=== PATIENT | male | born 1940 | race Caucasian/White ===

== ENCOUNTER → 2018-03-25 09:57 | Outpatient (CLI) | payer MEDICARE, SELFPAY ==
[2018-03-25 10:03] LABS: Microscopic, Urine URINE MICROSCOPIC (MICROSCOPIC)
[2018-03-25 13:52] LABS: Appearance,Urine CLEAR (Clear); Bilirubin,Urine Negative (Negative); Blood, Urine Negative (Negative); Color,Urine YELLOW (Yellow); Glucose,Urine (UA) Negative (Negative); Ketones,Urine Negative (Negative); Leukocyte Esterase,Urine Negative (Negative); Nitrate,Urine Negative (Negative); PH,Urine 6.5 (5.0-8.5); Protein,Urine Negative (Negative); Urobilinogen,Urine 0.2 EU/dl (0.2)
[2018-03-25 14:01] LABS: Creatinine,Urine Random 105 mg/dL (20-320); Total Protein,Urine Random 8.7 mg/dL (0.0-11.9)
[2018-03-25 14:12] LABS: Albumin Level 3.7 gm/dL (3.4-5.0); Anion Gap 15.1 mEq/L (5-15); Blood Urea Nitrogen 21 mg/dL (7-18); Calcium 8.9 mg/dL (8.5-10.1); Carbon Dioxide 24 mmol/L (21.0-32.0); Chloride 104 mmol/L (98-107); Creatinine,Serum 2.14 mg/dL (0.70-1.30); Estimated Glomerular Filt Rate 30 ml/min (>60); GFR (African American) 37 ML/MIN (>60); Glucose 116 mg/dL (74-106); Phosphorous 3.2 mg/dL (2.4-4.9); Potassium 5.1 mmoL/L (3.5-5.1); Sodium 138 mmol/L (136-145); Uric Acid 7.3 mg/dL (2.6-7.2)
[2018-03-25 14:27] LABS: Bacteria,Urine Trace /lpf; Squamous Epithelial Cell,Urine Occasional #/hpf (0-5); WBC,Urine Occasional #/hpf (0-3)
[2018-03-25 14:48] LABS: Basophils % 0.7 % (0.1-2.0); Eosinophils # 0.2 K/mm3 (0.0-0.4); Eosinophils % 2.9 % (0.1-12.0); Hematocrit 45.6 % (42.0-52.0); Hemoglobin 14.6 g/dL (14.1-18.0); Lymphocytes # 1.7 K/mm3 (0.7-4.5); Mean Corpuscular Hemoglobin 31.6 pg (27.0-31.2); Mean Corpuscular Volume 98.9 fl (80-94); Mean Platelet Volume 9.5 fl (7.4-10.4); Monocytes # 0.4 K/mm3 (0.1-1.0); Neutrophils # 3.7 K/mm3 (1.8-7.8); Neutrophils % 61.4 % (37.0-80.0); Platelet Count 229 K/mm3 (142-424); Red Blood Count 4.61 M/mm3 (4.60-6.20); Red Cell Distribution Width 13.8 % (11.5-17.5); White Blood Count 6.1 K/mm3 (4.8-10.8)
[2018-03-28 09:35] LABS: Calcium, Ionized 5.2 mg/dL (4.5-5.6); Parathyroid Hormone Intact 52 pg/mL (15-65); Vitamin D 25 Hydroxy 34.3 ng/mL (30.0-100.0)
== END ==
PROVIDERS: PCP Nurse Practitioner Family; Visit Provider Internal Medicine Nephrology
DX: N18.3 Chronic kidney disease, stage 3 (moderate) (principal)
CPT/HCPCS: 36415; 80069; 81001; 82330; 82570; 82652; 83970; 84155; 84550; 85025

== ENCOUNTER → 2018-03-31 14:26 | Outpatient (POV) | payer MEDICARE, SELFPAY | PROVIDERS: Visit Provider Internal Medicine Nephrology | DX: Z00.00 Encounter for general adult medical examination without abnormal findings (principal) ==

== ENCOUNTER 2018-06-27 12:26 | Inpatient (IN) ==
--- NOTE | 2018-06-27 12:33 | Emergency Department Note ---
ED Disposition Clinical Impression: Pneumonia, Acute renal failure, Dehydration Disposition: Admitted as Observation Condition on Discharge: Good Time of Disposition: 14:40 - Critical Care Critical Care Time: No Attestation: On , the high probability of a clinically significant, sudden or life threateni ng deterioration of the following system(s) required my full and direct attention, intervention and personal management. The time I documented below is in addition to time spent performing reported procedures but includes the following listed in this critical care notation. Medical Decision Making - Medical Records Medical records reviewed: Yes: I reviewed the patient's medical records. - Alex Inquiry Pt receiving controlled substance: No Alex was queried for this patient: No Vital Signs: 06/27/18 12:33 06/27/18 16:42 06/27/18 17:00 Temperature 98.7 F 98.7 F Temperature Source Oral Oral Pulse Rate Pulse Rate [Right Brachial] 79 82 Respiratory Rate 17 16 Blood Pressure Blood Pressure [Left Arm] 110/56 L Blood Pressure [Right Arm] 106/56 L Blood Pressure Mean [Left Arm] 74 Blood Pressure Mean [Right Arm] 72 Blood Pressure Source Blood Pressure Source [Left Arm] Automatic Cuff Blood Pressure Source [Right Arm] Automatic Cuff Blood Pressure Position Blood Pressure Position [Left Arm] Sitting Blood Pressure Position [Right Arm] Sitting 02 Sat by Pulse Oximetry 98 91 L Oxygen Delivery Method Room Air Room Air Nasal Cannula Oxygen Flow Rate (LPM) 2 06/27/18 17:03 06/27/18 17:04 Temperature 98.6 F Temperature Source Oral Pulse Rate 88 Pulse Rate [Right Brachial] Respiratory Rate 20 Blood Pressure 121/66 Blood Pressure [Left Arm] Blood Pressure [Right Arm] Blood Pressure Mean [Left Arm] Blood Pressure Mean [Right Arm] Blood Pressure Source Automatic Cuff Blood Pressure Source [Left Arm] Blood Pressure Source [Right Arm] Blood Pressure Position Supine Blood Pressure Position [Left Arm] Blood Pressure Position [Right Arm] 02 Sat by Pulse Oximetry Oxygen Delivery Method Nasal Cannula Room Air Oxygen Flow Rate (LPM) - Lab Data Lab Results 06/27/18 12:47: WBC 9.6, RBC 4.70, Hgb 14.8, Hct 45.1, MCV 96.0 H, MCH 31.5 H, MCHC 32.8, RDW 13.8, Plt Count 234, MPV 8.9, Neut % (Auto) 83.6 H, Lymph % (Auto) 11.1, Grainger % (Auto) 5.1, Eos % (Auto) 0.1, Baso % (Auto) 0.2, Neut # (Auto) 8.0 H, Lymph # (Auto) 1.1, Grainger # (Auto) 0.5, Eos # (Auto) 0.0, Baso # (Auto) 0.0 06/27/18 12:47: Sodium 135 L, Potassium 4.3, Chloride 100, Carbon Dioxide 24, Anion Gap 15.3 H, BUN 61 H, Creatinine 3.77 H, Estimated Creat Clear 20, Est imated GFR 16 L*, Est GFR ( Amer) 19 L*, Glucose 125 H, Calcium 8.5, Total Bilirubin 0.8, AST 28, ALT 38, Alkaline Phosphatase 66, Total Protein 7.2, Albumin 3.3 L, Globulin 3.9 H, Albumin/Globulin Ratio 0.8 L 06/27/18 14:15: Lactate 0.6 Result diagrams: 06/27/18 12:47 06/27/18 12:47 Orders (Tests/Meds): ED MEDICATIONS Generic Name Dose Route Start Last Admin Trade Name Freq PRN Reason Stop Dose Admin Acetaminophen 650 mg 06/27/18 16:32 Acetaminophen 325mg Tab PO 07/27/18 16:31 Q4HP PRN Fever > 100.4 Albuterol/Ipratropium 3 ml 06/27/18 20:00 Duoneb 3ml Neb IH 07/27/18 19:59 TIDRT SY Doxazosin Mesylate 4 mg 06/27/18 16:32 Cardura 4mg Tablet PO 07/27/18 16:31 QHS SY Azithromycin 500 mg/ Sodium 250 mls @ 250 mls/hr 06/28/18 14:30 Chloride IV 07/11/18 14:29 Q24H SY Protocol Ceftriaxone Sodium 1 gm/ 50 mls @ 100 mls/hr 06/28/18 14:30 Sodium Chloride IV 07/11/18 14:29 Q24H SY Protocol Sodium Chloride 1,000 mls @ 250 mls/hr 06/27/18 16:32 06/27/18 17:07 Sod Chlor 0.9% 1000ml Bag IV 07/27/18 16:31 250 mls/hr .Q4H SY Administration Non-Formulary Medication 1 tab 06/28/18 09:00 Multivit With Iron-Minerals [[facility] Select] PO 07/28/18 08:59 DAILY SY Ondansetron HCl 4 mg 06/27/18 16:32 06/27/18 17:08 Zofran 4mg/2ml Vial IV 06/27/18 16:33 Not Given ONCE ONE Sodium Chloride 3 ml 06/27/18 17:31 Sodium Chloride 3% 15ml Neb IH 07/27/18 17:30 ONCE PRN INDUCE SPUTUM COLLECTION Discontinued Medications Generic Name Dose Route Start Last Admin Trade Name Freq PRN Reason Stop Dose Admin Amlodipine Besylate 10 mg 06/28/18 09:00 Norvasc 10mg Tablet PO 07/28/18 08:59 DAILY SY Sodium Chloride 1,000 mls @ 999 mls/hr 06/27/18 12:45 06/27/18 12:43 Sod Chlor 0.9% 1000ml Bag IV 06/27/18 13:45 999 mls/hr .Q1H1M SY Administration Ceftriaxone Sodium 1 gm/ 50 mls @ 100 mls/hr 06/27/18 14:30 06/27/18 14:34 Sodium Chloride IV 07/11/18 14:29 100 mls/hr Q24H SY Administration Protocol Azithromycin 500 mg/ Sodium 250 mls @ 250 mls/hr 06/27/18 14:30 06/27/18 14:54 Chloride IV 07/11/18 14:29 250 mls/hr Q24H SY Administration Protocol Sodium Chloride 1,000 mls @ 999 mls/hr 06/27/18 15:00 06/27/18 14:56 Sod Chlor 0.9% 1000ml Bag IV 06/27/18 16:00 999 mls/hr .Q1H1M SY Administration Lisinopril 10 mg 06/28/18 09:00 Zestril 10mg Tablet PO 07/28/18 08:59 DAILY SY ORDERS Category Date Time Status Basic Metabolic Panel AMLAB Lab 06/28/18 06:00 Ordered Complete Blood Count Auto Diff AMLAB Lab 06/28/18 06:00 Ordered General Adult HPI - General Chief complaint: Weakness Stated complaint: dehydrated soa Time Seen by Provider: 06/27/18 12:47 Mode of Arrival: Ambulatory Limitations: No Limitations - History of Present Illness HPI narrative: DIARRHEAL ILLNESS X 3 DAYS, 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 SENT HERE BY MAYI MCCRACKEN SECONDARY TO HYPOTENSION IN OFFICE - Related Data Home Medications Medication Instructions Recorded Confirmed amlodipine 10 mg tablet 10 mg PO DAILY tab 10/21/17 06/27/18 doxazosin 4 mg tablet 4 mg PO QHS 10/21/17 06/27/18 lisinopril 10 mg tablet 10 mg PO DAILY tab 10/21/17 06/27/18 multivitamin with iron-mineral 1 tab PO DAILY tab 10/21/17 06/27/18 tablet Allergies Allergy/AdvReac Type Severity Reaction Status Date / Time No Known Allergies Allergy Unknown Uncoded 04/13/17 15:26 [facility] History - Hepatitis A Screen Attestation statement:: This patient has been screened for Hepatitis A risk factors. I have reviewed the patient's past medical history: Yes Medical History: Reports:: Cancer, Hypertension Other Medical History: Reports: Radiation Therapy Comment: prostate biopsy Other Surgeries: Yes: Appendectomy, Skin Cancer Excision (right hand) - Social History Smoking Status: Current some day smoker Alcohol Intake: former Family Hx:: No significant family history ROS Obtained: Yes All systems reviewed & no additional complaints - Constitutional Constitutional: Reports chills, Reports lethargy - Eyes Eyes: Reports system reviewed and no additional complaints, except as docu, Denies blurry vision - ENT Ears, Nose, Mouth, and Throat: Reports system reviewed and no additional complai nts, except as docu, Reports sinus pressure, Denies throat swelling - Cardiovascular Cardiovascular: Reports system reviewed and no additional complaints, except as docu, Denies chest pain, Denies chest pain at rest, Denies diaphoresis, Denies dyspnea - Respiratory Respiratory: Yes system reviewed and no additional complaints, except as docu, Yes chest congestion, Yes cough, Yes non-productive cough, No dyspnea - Gastrointestinal Gastrointestingal: Reports: system reviewed and no additional complaints, except as docu, diarrhea. Denies: abdominal pain, nausea, vomiting - Musculoskeletal Musculoskeletal: Reports muscle weakness - Integumentary/Breasts Skin/Breast: Denies skin pain - Neurologic Neurologic: Reports system reviewed and no additional complaints, except as docu, Reports weakness - Hematologic/Lymphatic Henatologic/Lymphatic: Denies easy bleeding, Denies easy bruising - Allergic/Immunologic Allergic/Immunologic: Denies throat swelling, Denies tongue swelling Physical Exam - General General appearance: alert, in no apparent distress - Head Head exam: atraumatic - Eye Eye exam: Present: normal appearance, PERRL, EOMI - ENT ENT exam: Present: normal exam, normal oropharynx, mucous membranes moist, TM's normal bilaterally, normal external ear exam - Neck Neck exam: Present: normal inspection, full ROM, trachea midline. Absent: meningismus, lymphadenopathy - Chest Chest inspection: Present: normal inspection, symmetric chest wall rise. Absent: tenderness - Respiratory Respiratory exam: Present: normal lung sounds bilaterally. Absent: respiratory distress - Cardiovascular Cardiovascular exam: Present: regular rate. Absent: bradycardia, tachycardia - Abdominal Exam Abdominal exam: Present: soft. Absent: distention, tenderness, guarding, mass - Extremities Exam Extremities exam: Present: normal inspection, full ROM, normal capillary refill. Absent: calf tenderness - Neurological Exam Neurological exam: Present: alert, oriented X3 - Psychiatric Psychiatric exam: Present: normal affect, normal mood - Skin Skin exam: Present: warm, dry, intact, normal color - Lymphatic Lymphatic Findings: no adenopathy
[2018-06-27 13:05] LABS: Basophils % 0.2 % (0.1-2.0); Eosinophils % 0.1 % (0.1-12.0); Hematocrit 45.1 % (42.0-52.0); Hemoglobin 14.8 g/dL (14.1-18.0); Lymphocytes # 1.1 K/mm3 (0.7-4.5); Lymphocytes % 11.1 % (10-50); Mean Corpuscular HGB Conc 32.8 g/dL (31.8-35.4); Mean Corpuscular Hemoglobin 31.5 pg (27.0-31.2); Mean Platelet Volume 8.9 fl (7.4-10.4); Monocytes # 0.5 K/mm3 (0.1-1.0); Monocytes % 5.1 % (1.7-9.3); Neutrophils % 83.6 % (37.0-80.0); Platelet Count 234 K/mm3 (142-424); Red Cell Distribution Width 13.8 % (11.5-17.5); White Blood Count 9.6 K/mm3 (4.8-10.8)
[2018-06-27 13:23] LABS: Albumin Level 3.3 gm/dL (3.4-5.0); Albumin/Globulin Ratio 0.8 (1.1-1.8); Anion Gap 15.3 mEq/L (5-15); Bilirubin,Total 0.8 mg/dL (0.2-1.0); Calcium 8.5 mg/dL (8.5-10.1); Globulin 3.9 gm/dl (1.3-3.2); Potassium 4.3 mmoL/L (3.5-5.1); Total Protein,Serum 7.2 gm/dL (6.4-8.2)
--- NOTE | 2018-06-27 15:50 | History & Physical Report ---
Addendum entered and electronically signed by Mariela Steele APRN 06/28/18 05:03: Pt received Flu vaccine for this year and has had pneumonia vaccine Original Note: *Admission Date: 06/27/18 <Mariela Steele 06/27/18 16:45> *Chief complaint: weakness, cough, diarrhea <Mariela Steele 06/27/18 16:45> *History of present illness: Mr. Robbins is a 77-year-old male patient of Leeann Mckeon APRN with a history of prostate cancer and chronic renal disease who presented to Ms. Mckeon's office this a.m. after being sick for 3 days with a cough and diarrhea. In the office visit blood pressure dropped to 70s systolically and she sent him to the emergency room for further evaluation and treatment. Flu test in the office was negative. Patient states he started with the diarrhea on 06/24/2018 as well as the nonproductive cough. This continued for the next 2 days. He was nauseated but never did vomit. Urinary output was decreased. Last diarrhea stool was yesterday. He had hot and cold spells and subjectively felt like he had a fever. He denies sore throat and ear pain. In the emergency room with evaluation he was found to have a left lower lobe pneumonia. He was given a fluid bolus and started on Rocephin and Zithromax. He was admitted for further treatment. At the time of this exam patient is comfortable and feeling a little better. He states he is not quite as dizzy. He continues with a cough. He has chest pain with the cough. <Mariela Steele 06/27/18 16:45> [facility] History Medical History: Reports:: Cancer, Hypertension, Renal Insufficiency (Renal cyst) Denies:: Coronary Artery Disease, Cerebrovascular Accident <Mariela Steele 06/27/18 16:45> Other Medical History: Reports: Radiation Therapy <Mariela Steele 06/27/18 16:45> Other Surgeries: Yes: Appendectomy, Skin Cancer Excision (right hand) <Mariela Steele 06/27/18 16:45> - *Social History Educational Level: Completed High School <Mariela Steele 06/27/18 16:45> Smoking Status: Current some day smoker <Mariela Steele 06/27/18 16:45> Alcohol Intake: former <Mariela Steele 06/27/18 16:45> *Occupational Status:: unemployed, retired <SteeleMariela 06/27/18 16:45> Household Members: spouse <Mariela Steele 06/27/18 16:45> *Travel in the last 8 weeks: None <Steele,Mariela 06/27/18 16:45> - Psychiatric History Expresses thoughts of harming self/others: None <CedricMariela 06/27/18 16:45> Suicide Plan Description: No Plan <Steele,Mariela 06/27/18 16:45> Family Hx:: No significant family history, no Cancer, no Heart Attack <Steele,Mariela 06/27/18 16:45> Review of Systems - Constitutional Reports chills, Reports fatigue, Reports lack of energy <Steele,Mariela 06/27/18 16:45> Comments: Has been in the bed for 2-3 days <Mariela Steele 06/27/18 16:45> - ENT Reports dizziness, Denies ear pain, Denies sore throat <CedricMariela 06/27/18 16:45> - *Cardiovascular Reports shortness of breath, Denies chest pain, Denies irregular heart rhythm <Mariela Steele 06/27/18 16:45> - *Respiratory Reports chest congestion, Reports cough (Nonproductive), Reports shortness of breath, Denies coughing up blood <CedricMariela 06/27/18 16:45> - *Gastrointestinal Reports loose stools, Reports heartburn, Reports nausea, Denies abdominal pain, Denies change in stools, Denies vomiting blood, Denies black, tarry stools, Denies vomiting <Mariela Steele 06/27/18 16:45> - *Genitourinary Denies difficulty urinating <Mariela Steele 06/27/18 16:45> - *Musculoskeletal Reports joint pain (Bilateral hips) <Mariela Steele 06/27/18 16:45> - *Neurologic Reports dizziness (He feels he is on too much blood pressure medicine), Reports weakness, Denies headache(s) <Mariela Steele 06/27/18 16:45> Meds Home Medications Medication Instructions Recorded Confirmed Type amlodipine 10 mg tablet 10 mg PO DAILY tab 10/21/17 History doxazosin 4 mg tablet 4 mg PO QHS 10/21/17 History lisinopril 10 mg tablet 10 mg PO DAILY tab 10/21/17 History multivitamin with iron-mineral 1 tab PO DAILY tab 10/21/17 History tablet <Benita Colorado - 06/27/18 17:26> Allergies Allergy/AdvReac Type Severity Reaction Status Date / Time No Known Allergies Allergy Unknown Uncoded 04/13/17 15:26 <Benita Colorado - 06/27/18 17:26> Exam Vital signs and Labs for Last 24 Hours: Temp Pulse Resp BP Pulse Ox 98.6 F 88 20 121/66 91 L 06/27/18 17:03 06/27/18 17:03 06/27/18 17:03 06/27/18 17:03 06/27/18 16:42 Laboratory Results - last 24 hr 06/27/18 12:47: WBC 9.6, RBC 4.70, Hgb 14.8, Hct 45.1, MCV 96.0 H, MCH 31.5 H, MCHC 32.8, RDW 13.8, Plt Count 234, MPV 8.9, Neut % (Auto) 83.6 H, Lymph % (Auto) 11.1, Harper % (Auto) 5.1, Eos % (Auto) 0.1, Baso % (Auto) 0.2, Neut # (Auto) 8.0 H, Lymph # (Auto) 1.1, Harper # (Auto) 0.5, Eos # (Auto) 0.0, Baso # (Auto) 0.0 06/27/18 12:47: Sodium 135 L, Potassium 4.3, Chloride 100, Carbon Dioxide 24, Anion Gap 15.3 H, BUN 61 H, Creatinine 3.77 H, Estimated Creat Clear 20, Estimated GFR 16 L*, Est GFR ( Amer) 19 L*, Glucose 125 H, Calcium 8.5, Total Bilirubin 0.8, AST 28, ALT 38, Alkaline Phosphatase 66, Total Protein 7.2, Albumin 3.3 L, Globulin 3.9 H, Albumin/Globulin Ratio 0.8 L 06/27/18 14:15: Lactate 0.6 <Benita Colorado - 06/27/18 17:26> Temp Pulse Resp BP Pulse Ox 98.7 F 79 17 106/56 L 98 06/27/18 12:33 06/27/18 12:33 06/27/18 12:33 06/27/18 12:33 06/27/18 12:33 Laboratory Results - last 24 hr 06/27/18 12:47: WBC 9.6, RBC 4.70, Hgb 14.8, Hct 45.1, MCV 96.0 H, MCH 31.5 H, MCHC 32.8, RDW 13.8, Plt Count 234, MPV 8.9, Neut % (Auto) 83.6 H, Lymph % (Auto) 11.1, Harper % (Auto) 5.1, Eos % (Auto) 0.1, Baso % (Auto) 0.2, Neut # (Auto) 8.0 H, Lymph # (Auto) 1.1, Harper # (Auto) 0.5, Eos # (Auto) 0.0, Baso # (Auto) 0.0 06/27/18 12:47: Sodium 135 L, Potassium 4.3, Chloride 100, Carbon Dioxide 24, Anion Gap 15.3 H, BUN 61 H, Creatinine 3.77 H, Estimated Creat Clear 20, Estimated GFR 16 L*, Est GFR ( Amer) 19 L*, Glucose 125 H, Calcium 8.5, Total Bilirubin 0.8, AST 28, ALT 38, Alkaline Phosphatase 66, Total Protein 7.2, Albumin 3.3 L, Globulin 3.9 H, Albumin/Globulin Ratio 0.8 L 06/27/18 14:15: Lactate 0.6 <Mariela Steele - 06/27/18 16:45> I & O for Last 24 hours: Intake & Output 06/25/18 06/26/18 06/27/18 06/28/18 11:59 11:59 11:59 11:59 Weight 185 lb 6 oz <Benita Colorado - 06/27/18 17:26> Intake & Output 06/25/18 06/26/18 06/27/18 06/28/18 11:59 11:59 11:59 11:59 Weight 187 lb <Mariela Steele 06/27/18 16:45> Radiology Reports for the Last 24 Hours: 06/27/18 CXR IMPRESSION: [facility] lower lobe pneumonia [facility] 06/27/18 16:45> - Constitutional no acute distress <CedricMariela 06/27/18 16:45> Comments: Lying on stretcher in the emergency room <[facility] 06/27/18 16:45> - *Routine HEENT Exam Head: Present: normocephalic, atraumatic <Brooke Steelehy 06/27/18 16:45> Eye: Present: PERRL, scleral injection (Bilaterally) <CedricMariela 06/27/18 16:45> ENT: Present: mucous membranes moist, oropharynx clear <CedricMariela 06/27/18 16:45> - *Routine Neck Exam Present: supple. Absent: carotid bruit, lymphadenopathy, thyromegaly <Steele,Mariela 06/27/18 16:45> - *Routine Respiratory Exam Comments: Wheezing in the left base. Crackles in the right base <Steele,Mariela 06/27/18 16:45> - *Routine Cardiovascular Exam Present: RRR <Steele,[facility] 06/27/18 16:45> - *Routine Abdominal Exam Present: soft. Absent: normoactive bowel sounds (Hyperactive bowel sounds), tenderness, guarding <[facility] 06/27/18 16:45> - *Routine Extremities Exam Present: full ROM, pulses intact. Absent: edema, calf tenderness <Steele,Mariela 06/27/18 16:45> - *Routine Skin Exam Comments: Flushed <Steele,Mariela 06/27/18 16:45> - *Routine Neurological Exam Present: alert, oriented X3 <Steele,[facility] 06/27/18 16:45> Assessment and Plan (1) Hypotension Current visit: Yes Status: Acute Category: Medical Code(s): I95.9 - Hypotension, unspecified (2) History of prostate cancer Current visit: Yes Status: Chronic Category: Medical Code(s): Z85.46 - Personal history of malignant neoplasm of prostate (3) Acute on chronic renal failure Current visit: Yes Status: Acute Category: Medical Code(s): N17.9 - Acute kidney failure, unspecified; N18.9 - Chronic kidney disease, unspecified (4) Dehydration Current visit: Yes Status: Acute Category: Medical Code(s): E86.0 - Dehydration (5) Pneumonia Current visit: Yes Status: Acute Category: Medical Code(s): J18.9 - Pneumonia, unspecified organism <SteeleMariela - 06/27/18 15:46> (1) Hypotension Current visit: Yes Status: Acute Category: Medical Code(s): I95.9 - Hypotension, unspecified (2) History of prostate cancer Current visit: Yes Status: Chronic Category: Medical Code(s): Z85.46 - Personal history of malignant neoplasm of prostate (3) Acute on chronic renal failure Current visit: Yes Status: Acute Category: Medical Code(s): N17.9 - Acute kidney failure, unspecified; N18.9 - Chronic kidney disease, unspecified (4) Dehydration Current visit: Yes Status: Acute Category: Medical Code(s): E86.0 - Dehydration (5) Pneumonia Current visit: Yes Status: Acute Category: Medical Code(s): J18.9 - Pneumonia, unspecified organism <Benita [place] - 06/27/18 17:26> - Assessment and plan all Dx Assessment and Plan for all problems:: Patient was examined at bedside at 5:10pm. He mentions that he is in chronic kidney disease, stage 3. Agree with above. Continue IV abx and IV fluids, once renal functions are back to his baseline and he is off of oxygen, he will be discharged home (1-2 days). <Benita Colorado - 06/27/18 17:26> Patient has been started on Zithromax and Rocephin IV. He will also receive duo nebs 3 times daily. He is receiving IV fluids at present to correct the renal function. Will hold off on the amlodipine due to hypotension and lisinopril due to hypotension and renal function. We will continue to monitor renal function and vital signs. <Mariela Steeel - 06/27/18 16:45>
[2018-06-28 06:31] LABS: Basophils % 0.3 % (0.1-2.0); Eosinophils % 0.1 % (0.1-12.0); Hematocrit 38.1 % (42.0-52.0); Lymphocytes % 23.9 % (10-50); Mean Corpuscular HGB Conc 32.6 g/dL (31.8-35.4); Mean Corpuscular Hemoglobin 31.6 pg (27.0-31.2); Mean Corpuscular Volume 97.1 fl (80-94); Mean Platelet Volume 9.1 fl (7.4-10.4); Monocytes # 0.6 K/mm3 (0.1-1.0); Monocytes % 6.6 % (1.7-9.3); Neutrophils # 5.9 K/mm3 (1.8-7.8); Neutrophils % 69.1 % (37.0-80.0); Platelet Count 185 K/mm3 (142-424); Red Blood Count 3.93 M/mm3 (4.60-6.20); Red Cell Distribution Width 13.7 % (11.5-17.5); White Blood Count 8.5 K/mm3 (4.8-10.8)
[2018-06-28 07:09] LABS: Hemoglobin 12.3 g/dL (14.1-18.0)
--- NOTE | 2018-06-28 07:16 | Pharmacy Consult Notes ---
[facility] Pharmacy VTE Monitoring - Patient Demographics Admission date: 06/27/18 Report Date: 06/28/18 Time: 07:16 Allergies/Adverse Reactions: Patient Allergies No Known Allergies Allergy (Unknown, Uncoded 04/13/17 15:26) Height: 1.75 m Weight: 84.085 kg Patient Problems: Current Active Problems Pneumonia (Acute) Acute renal failure (Acute) Dehydration (Acute) Hypotension (Acute) History of prostate cancer (Chronic) Acute on chronic renal failure (Acute) - VTE Risk Labs: VTE Related Lab Results Hgb 12.3 g/dL (14.1-18.0) L D 06/28/18 06:18 Hct 38.1 % (42.0-52.0) L 06/28/18 06:18 Plt Count 185 K/mm3 (142-424) 06/28/18 06:18 BUN 61 mg/dL (7-18) H 06/27/18 12:47 Creatinine 3.77 mg/dL (0.70-1.30) H 06/27/18 12:47 Estimated Creat Clear 20 mL/min (50-200) 06/27/18 12:47 Was VTE Risk Assessment Performed: Yes VTE Score: 2 Clinical Trial Participant: No - Prophylaxis VTE Prophylaxis Ordered?: Yes Location of Applied Device: Not Applicable
[2018-06-28 07:18] LABS: Anion Gap 16.1 mEq/L (5-15); Potassium 4.1 mmoL/L (3.5-5.1)
[2018-06-28 07:58] LABS: Calcium 7.7 mg/dL (8.5-10.1)
--- NOTE | 2018-06-28 08:30 | Progress Note ---
<Mariela Steele - Last Filed: 06/28/18 08:26> Internal Medicine - PN: Subj *Date: 06/28/18 *Time: 08:26 Interval history: Patient states he is feeling better today. He feels full from IV fluids and from eating breakfast. He continues with frequent cough. He has voided and [place]. He is ambulated to the bathroom without difficulty. He has had no further diarrhea. Renal function has improved with a BUN of 45 and creatinine of 2.42 Exam Vital signs and Labs for Last 24 Hours: Temp Pulse Resp BP Pulse Ox 98.4 F 89 16 101/45 L 91 L 06/28/18 07:38 06/28/18 07:38 06/28/18 07:38 06/28/18 07:38 06/28/18 07:38 Laboratory Results - last 24 hr 06/27/18 12:47: WBC 9.6, RBC 4.70, Hgb 14.8, Hct 45.1, MCV 96.0 H, MCH 31.5 H, MCHC 32.8, RDW 13.8, Plt Count 234, MPV 8.9, Neut % (Auto) 83.6 H, Lymph % (Auto) 11.1, [place] % (Auto) 5.1, Eos % (Auto) 0.1, Baso % (Auto) 0.2, Neut # (Auto) 8.0 H, Lymph # (Auto) 1.1, [place] # (Auto) 0.5, Eos # (Auto) 0.0, Baso # (Auto) 0.0 06/27/18 12:47: Sodium 135 L, Potassium 4.3, Chloride 100, Carbon Dioxide 24, Anion Gap 15.3 H, BUN 61 H, Creatinine 3.77 H, Estimated Creat Clear 20, Estimated GFR 16 L*, Est GFR ( Amer) 19 L*, Glucose 125 H, Calcium 8.5, Total Bilirubin 0.8, AST 28, ALT 38, Alkaline Phosphatase 66, Total Protein 7.2, Albumin 3.3 L, Globulin 3.9 H, Albumin/Globulin Ratio 0.8 L 06/27/18 14:15: Lactate 0.6 06/28/18 06:18: WBC 8.5, RBC 3.93 L, Hgb 12.3 L D, Hct 38.1 L, MCV 97.1 H, MCH 31.6 H, MCHC 32.6, RDW 13.7, Plt Count 185, MPV 9.1, Neut % (Auto) 69.1, Lymph % (Auto) 23.9, [place] % (Auto) 6.6, Eos % (Auto) 0.1, Baso % (Auto) 0.3, Neut # (Auto) 5.9, Lymph # (Auto) 2.0, [place] # (Auto) 0.6, Eos # (Auto) 0.0, Baso # (A uto) 0.0 06/28/18 06:18: Sodium 141, Potassium 4.1, Chloride 108 H, Carbon Dioxide 21, Anion Gap 16.1 H, BUN 45 H D, Creatinine 2.42 H D, Estimated Creat Clear 31, Estimated GFR 26 L, Est GFR ( Amer) 32 L D, Glucose 107 H, Calcium 7.7 L I & O for Last 24 hours: Intake & Output 06/25/18 06/26/18 06/27/18 06/28/18 11:59 11:59 11:59 11:59 Intake Total 3539 / 3539 Output Total 1220 / 1220 Balance 2319 / 2319 Weight 185 lb 6 oz Microbiology Reports for the Last 24 Hours: Microbiology 06/27/18 21:51 Sputum - Expectorated Sputum Gram Stain - Final 06/27/18 21:51 Sputum - Expectorated Sputum Sputum Culture - Preliminary - Constitutional no acute distress Comments: Sitting up in bed. Appears comfortable. - *Routine Respiratory Exam Comments: Crackles on the right. Decreased breath sounds on the left - *Routine Cardiovascular Exam Present: RRR - *Routine Abdominal Exam Present: soft, normoactive bowel sounds. Absent: tenderness - *Routine Extremities Exam Absent: edema, calf tenderness - *Routine Neurological Exam Present: alert, oriented X3 Assessment and Plan (1) Hypotension Current visit: Yes Status: Acute Category: Medical Code(s): I95.9 - Hypotension, unspecified (2) History of prostate cancer Current visit: Yes Status: Chronic Category: Medical Code(s): Z85.46 - Personal history of malignant neoplasm of prostate (3) Acute on chronic renal failure Current visit: Yes Status: Acute Category: Medical Code(s): N17.9 - Acute kidney failure, unspecified; N18.9 - Chronic kidney disease, unspecified (4) Dehydration Current visit: Yes Status: Acute Category: Medical Code(s): E86.0 - Dehydration (5) Pneumonia Current visit: Yes Status: Acute Category: Medical Code(s): J18.9 - Pneumonia, unspecified organism - Assessment and plan all Dx Assessment and Plan for all problems:: IV fluids have been decreased to 75/h. Continue with IV antibiotics and duo nebs <Benita Colorado - Last Filed: 06/28/18 09:39> Exam Vital signs and Labs for Last 24 Hours: Temp Pulse Resp BP Pulse Ox 98.4 F 89 16 101/45 L 91 L 06/28/18 07:38 06/28/18 07:38 06/28/18 07:38 06/28/18 07:38 06/28/18 07:38 Laboratory Results - last 24 hr 06/27/18 12:47: WBC 9.6, RBC 4.70, Hgb 14.8, Hct 45.1, MCV 96.0 H, MCH 31.5 H, MCHC 32.8, RDW 13.8, Plt Count 234, MPV 8.9, Neut % (Auto) 83.6 H, Lymph % (Auto) 11.1, [place] % (Auto) 5.1, Eos % (Auto) 0.1, Baso % (Auto) 0.2, Neut # (Auto) 8.0 H, Lymph # (Auto) 1.1, [place] # (Auto) 0.5, Eos # (Auto) 0.0, Baso # (Auto) 0.0 06/27/18 12:47: Sodium 135 L, Potassium 4.3, Chloride 100, Carbon Dioxide 24, Anion Gap 15.3 H, BUN 61 H, Creatinine 3.77 H, Estimated Creat Clear 20, Estimated GFR 16 L*, Est GFR ( Amer) 19 L*, Glucose 125 H, Calcium 8.5, Total Bilirubin 0.8, AST 28, ALT 38, Alkaline Phosphatase 66, Total Protein 7.2, Albumin 3.3 L, Globulin 3.9 H, Albumin/Globulin Ratio 0.8 L 06/27/18 14:15: Lactate 0.6 06/28/18 06:18: WBC 8.5, RBC 3.93 L, Hgb 12.3 L D, Hct 38.1 L, MCV 97.1 H, MCH 31.6 H, MCHC 32.6, RDW 13.7, Plt Count 185, MPV 9.1, Neut % (Auto) 69.1, Lymph % (Auto) 23.9, [place] % (Auto) 6.6, Eos % (Auto) 0.1, Baso % (Auto) 0.3, Neut # (Auto) 5.9, Lymph # (Auto) 2.0, [place] # (Auto) 0.6, Eos # (Auto) 0.0, Baso # (Auto) 0.0 06/28/18 06:18: Sodium 141, Potassium 4.1, Chloride 108 H, Carbon Dioxide 21, Anion Gap 16.1 H, BUN 45 H D, Creatinine 2.42 H D, Estimated Creat Clear 31, Estimated GFR 26 L, Est GFR ( Amer) 32 L D, Glucose 107 H, Calcium 7.7 L I & O for Last 24 hours: Intake & Output 06/25/18 06/26/18 06/27/18 06/28/18 11:59 11:59 11:59 11:59 Intake Total 3539 / 3539 Output Total 1220 / 1220 Balance 2319 / 2319 Weight 185 lb 6 oz Microbiology Reports for the Last 24 Hours: Microbiology 06/27/18 21:51 Sputum - Expectorated Sputum Gram Stain - Final 06/27/18 21:51 Sputum - Expectorated Sputum Sputum Culture - Preliminary Assessment and Plan (1) Hypotension Current visit: Yes Status: Acute Category: Medical Code(s): I95.9 - Hypotension, unspecified (2) History of prostate cancer Current visit: Yes Status: Chronic Category: Medical Code(s): Z85.46 - Personal history of malignant neoplasm of prostate (3) Acute on chronic renal failure Current visit: Yes Status: Acute Category: Medical Code(s): N17.9 - Acute kidney failure, unspecified; N18.9 - Chronic kidney disease, unspecified (4) Dehydration Current visit: Yes Status: Acute Category: Medical Code(s): E86.0 - Dehydration (5) Pneumonia Current visit: Yes Status: Acute Category: Medical Code(s): J18.9 - Pneumonia, unspecified organism - Assessment and plan all Dx Assessment and Plan for all problems:: will continue IVF for one more day until kidney functions returns to baseline (2.0). Wean off oxygen today, ambulate in hallways and shower. Possible dc tomorrow.
[2018-06-29 06:39] LABS: Anion Gap 13.2 mEq/L (5-15); Calcium 8.1 mg/dL (8.5-10.1); Potassium 4.2 mmoL/L (3.5-5.1)
--- NOTE | 2018-06-29 08:29 | Progress Note ---
<Mariela Steele - Last Filed: 06/29/18 08:25> Internal Medicine - PN: Subj *Date: 06/29/18 *Time: 08:25 Interval history: Patient slept between nursing checks. He was able to ambulate in the [place]. O2 sats have fluctuated requiring periodic supplemental oxygen. He is eating without difficulty although he is again started with diarrhea. Kidneys are working without problems. Kidney function has improved with a BUN of 28 and creatinine of 1.80. Blood pressure has remained low normal. Patient has experienced no further dizziness. He has remained off amlodipine and lisinopril. Exam Vital signs and Labs for Last 24 Hours: Temp Pulse Resp BP Pulse Ox 98.3 F 98 H 20 115/60 91 L 06/29/18 08:00 06/29/18 08:00 06/29/18 08:00 06/29/18 08:00 06/29/18 08:00 Laboratory Results - last 24 hr 06/29/18 05:57: Sodium 142, Potassium 4.2, Chloride 110 H, Carbon Dioxide 23, Anion Gap 13.2, BUN 28 H D, Creatinine 1.80 H D, Estimated Creat Clear 42, Estimated GFR 37 L, Est GFR ( Amer) 45 L D, Glucose 112 H, Calcium 8.1 L I & O for Last 24 hours: Intake & Output 06/26/18 06/27/18 06/28/18 06/29/18 11:59 11:59 11:59 11:59 Intake Total 3539 / 3539 2702 / 2702 Output Total 1220 / 1220 950 / 950 Balance 2319 / 2319 1752 / 1752 Weight 185 lb 6 oz Microbiology Reports for the Last 24 Hours: Microbiology 06/27/18 21:51 Sputum - Expectorated Sputum Gram Stain - Final 06/27/18 21:51 Sputum - Expectorated Sputum Sputum Culture - Preliminary - Constitutional no acute distress Comments: Still has a frequent congested cough - *Routine Respiratory Exam Comments: Imaged breath sounds on the left with some audible crackles. He has coarse crackles on the right. - *Routine Cardiovascular Exam Present: RRR - *Routine Abdominal Exam Present: soft, normoactive bowel sounds. Absent: tenderness - *Routine Extremities Exam Absent: edema - *Routine Neurological Exam Present: alert, oriented X3 Assessment and Plan (1) Hypotension Current visit: Yes Status: Acute Category: Medical Code(s): I95.9 - Hypotension, unspecified (2) History of prostate cancer Current visit: Yes Status: Chronic Category: Medical Code(s): Z85.46 - Personal history of malignant neoplasm of prostate (3) Acute on chronic renal failure Current visit: Yes Status: Acute Category: Medical Code(s): N17.9 - Acute kidney failure, unspecified; N18.9 - Chronic kidney disease, unspecified (4) Dehydration Current visit: Yes Status: Acute Category: Medical Code(s): E86.0 - Dehydration (5) Pneumonia Current visit: Yes Status: Acute Category: Medical Code(s): J18.9 - Pneumonia, unspecified organism - Assessment and plan all Dx Assessment and Plan for all problems:: Will discuss blood pressure medicine with Dr. [place]. We will continue current treatment for pneumonia. Possibly home today. Saline lock IV <Benita [place] - Last Filed: 06/29/18 08:53> Exam Vital signs and Labs for Last 24 Hours: Temp Pulse Resp BP Pulse Ox 98.3 F 98 H 20 115/60 91 L 06/29/18 08:00 06/29/18 08:00 06/29/18 08:00 06/29/18 08:00 06/29/18 08:00 Laboratory Results - last 24 hr 06/29/18 05:57: Sodium 142, Potassium 4.2, Chloride 110 H, Carbon Dioxide 23, Anion Gap 13.2, BUN 28 H D, Creatinine 1.80 H D, Estimated Creat Clear 42, Est imated GFR 37 L, Est GFR ( Amer) 45 L D, Glucose 112 H, Calcium 8.1 L I & O for Last 24 hours: Intake & Output 06/26/18 06/27/18 06/28/18 06/29/18 11:59 11:59 11:59 11:59 Intake Total 3539 / 3539 2702 / 2702 Output Total 1220 / 1220 950 / 950 Balance 2319 / 2319 1752 / 1752 Weight 185 lb 6 oz Microbiology Reports for the Last 24 Hours: Microbiology 06/27/18 21:51 Sputum - Expectorated Sputum Gram Stain - Final 06/27/18 21:51 Sputum - Expectorated Sputum Sputum Culture - Preliminary Assessment and Plan (1) Hypotension Current visit: Yes Status: Acute Category: Medical Code(s): I95.9 - Hypotension, unspecified (2) History of prostate cancer Current visit: Yes Status: Chronic Category: Medical Code(s): Z85.46 - Personal history of malignant neoplasm of prostate (3) Acute on chronic renal failure Current visit: Yes Status: Acute Category: Medical Code(s): N17.9 - Acute kidney failure, unspecified; N18.9 - Chronic kidney disease, unspecified (4) Dehydration Current visit: Yes Status: Acute Category: Medical Code(s): E86.0 - Dehydration (5) Pneumonia Current visit: Yes Status: Acute Category: Medical Code(s): J18.9 - Pneumonia, unspecified organism - Assessment and plan all Dx Assessment and Plan for all problems:: will dc pt home today. Will dc lisinopril 2/2 kidney injury for now. Will send him with 2 days of azithromycin to finish a 5 day course and 5 days of omnicef.
--- NOTE | 2018-06-29 21:43 | Discharge Summary ---
General - General Admission date:: 06/27/18 <Benita Colorado - 07/01/18 10:47> 06/27/18 <Sukumar Griffina - 06/29/18 21:44> Discharge date: 06/29/18 <Sindhu Griffin - 06/29/18 21:44> HPI HPI: Mr. Robbins is a 77-year-old male patient of Leeann Mckeon APRN with a history of prostate cancer and chronic renal disease who presented to Ms. Mckeon's office this a.m. after being sick for 3 days with a cough and diarrhea. In the office visit blood pressure dropped to 70s systolically and she sent him to the emergency room for further evaluation and treatment. Flu test in the office was negative. Patient states he started with the diarrhea on 06/24/2018 as well as the nonproductive cough. This continued for the next 2 days. He was nauseated but never did vomit. Urinary output was decreased. Last diarrhea stool was yesterday. He had hot and cold spells and subjectively felt like he had a fever. He denies sore throat and ear pain. In the emergency room with evaluation he was found to have a left lower lobe pneumonia. He was given a fluid bolus and started on Rocephin and Zithromax. He was admitted for further treatment. At the time of this exam patient is comfortable and feeling a little better. He states he is not quite as dizzy. He continues with a cough. He has chest pain with the cough. <Sindhu Griffin - 06/29/18 21:44> Hospital Course Hospital Course: The patient's chest x-ray showed a left lower lobe pneumonia. He was started on antibiotics and duo nebs. He was started on IV fluids due to renal insufficiency and his amlodipine and lisinopril were held due to hypotension and elevated renal function. The patient was able to tolerate a diet and was able to ambulate to the bathroom without difficulty. His renal function improved with hydration. The patient's oxygen was weaned but his oxygen sats fluctuated requiring periodic supplemental oxygen. His diarrhea resolved briefly but then started again. He was urinating without problems and experienced no further dizziness. He was able to ambulate in the hallway. He was stable to be discharged home with 2 more days of Zithromax to finish a 5-day course and 5 days of Omnicef for his pneumonia. His lisinopril was discontinued secondary to kidney injury. His preliminary sputum showed no reportable results. He will need to f/u with his PCP. <Sindhu Griffin - 06/29/18 21:44> Objective Vital signs: Temp Pulse Resp BP Pulse Ox 98.4 F 76 18 120/64 92 L 06/29/18 10:45 06/29/18 10:45 06/29/18 10:45 06/29/18 10:45 06/29/18 10:45 <Benita Colorado - 07/01/18 10:47> Temp Pulse Resp BP Pulse Ox 98.4 F 76 18 120/64 92 L 06/29/18 10:45 06/29/18 10:45 06/29/18 10:45 06/29/18 10:45 06/29/18 10:45 <Sindhu Griffin - 06/29/18 21:44> Narrative: - Constitutional no acute distress Comments: Lying on stretcher in the emergency room - *Routine HEENT Exam Head: Present: normocephalic, atraumatic Eye: Present: PERRL, scleral injection (Bilaterally) ENT: Present: mucous membranes moist, oropharynx clear - *Routine Neck Exam Present: supple. Absent: carotid bruit, lymphadenopathy, thyromegaly - *Routine Respiratory Exam Comments: Wheezing in the left base. Crackles in the right base - *Routine Cardiovascular Exam Present: RRR - *Routine Abdominal Exam Present: soft. Absent: normoactive bowel sounds (Hyperactive bowel sounds), tenderness, guarding - *Routine Extremities Exam Present: full ROM, pulses intact. Absent: edema, calf tenderness - *Routine Skin Exam Comments: Flushed - *Routine Neurological Exam Present: alert, oriented X3 <Sindhu Griffin - 06/29/18 21:44> Results Labs on day of discharge: Labs from last 24 hours 06/29/18 05:57 Sodium 142 Potassium 4.2 Chloride 110 H Carbon Dioxide 23 Anion Gap 13.2 BUN 28 H D Creatinine 1.80 H D Estimated Creat Clear 42 Estimated GFR 37 L Est GFR ( Amer) 45 L D Glucose 112 H Calcium 8.1 L Preliminary micro results at discharge 06/27/18 21:51 Sputum Culture - Preliminary Sputum - Expectorated Sputum <Sindhu Griffin 06/29/18 21:44> DS: Diagnosis - Discharge Diagnosis (1) Hypotension Status: Acute (2) History of prostate cancer Status: Chronic (3) Acute on chronic renal failure Status: Acute (4) Dehydration Status: Acute (5) Pneumonia Status: Acute <Sindhu Griffin 06/29/18 21:37> (1) Hypotension Status: Acute (2) History of prostate cancer Status: Chronic (3) Acute on chronic renal failure Status: Acute (4) Dehydration Status: Acute (5) Pneumonia Status: Acute <Benita [place] 07/01/18 10:47> Discharge Plan - Patient Discharge Instructions ACTIVITY: Continue current activity <Sindhu Griffin 06/29/18 21:44> DIET: continue same diet <Sindhu Griffin 06/29/18 21:44> Patient Instructions: Pneumonia-Adult, Dehydration, Acute Renal Failure <Benita Colorado 07/01/18 10:47> Forms: <Benita Colorado 07/01/18 10:47> - Follow up Plan Follow up with: <Benita Colorado 07/01/18 10:47> Unknown provider or service follow up:: 06/29/18 08:55 with his PCP, Leeann Mckeon in 1-2 weeks and his batch dumper in 2 weeks <Sindhu Griffin 06/29/18 21:44> Disposition: Home, Self-Care <Benita [place] 07/01/18 10:47> Home Medications: Home Medications Medication Instructions Recorded Confirmed Type amlodipine 10 mg tablet 10 mg PO DAILY tab 10/21/17 06/27/18 History doxazosin 4 mg tablet 4 mg PO HS 10/21/17 06/28/18 History multivitamin with iron-mineral 1 tab PO DAILY tab 10/21/17 06/27/18 History tablet Cefdinir [Omnicef 300mg Capsule] 300 mg PO BID 5 Days #10 cap 06/29/18 Rx <Benita [place] 07/01/18 10:47> Prescriptions/Medication Reconciliation: New Cefdinir [Omnicef 300mg Capsule] 300 mg PO BID 5 Days #10 cap Continue amlodipine 10 mg tablet 10 mg PO DAILY tab doxazosin 4 mg tablet 4 mg PO HS multivitamin with iron-mineral tablet 1 tab PO DAILY tab Discontinued lisinopril 10 mg tablet 10 mg PO DAILY tab <Benita [place] - 07/01/18 10:47>
== END 2018-06-29 13:20 | disposition home or self-care (01) | DRG 194 ==
LOC: ER 12:26 → 2ND 12:26 → OBSVTOIN 17:04 → 2ND 17:06
PROVIDERS: ADMIT Emergency Medicine; ATTEND Emergency Medicine
CPT/HCPCS: 36415; 71020; 71046; 80048; 80053; 83605; 85025; 87070; 87205; 94640; 94761; 96365; 99284; J0456

== ENCOUNTER → 2018-10-21 12:40 | Outpatient (CLI) | payer MEDICARE, SELFPAY ==
--- NOTE | 2018-10-21 12:46 | CA_ITS ---
PROCEDURE: 2-D M-mode and color Doppler study INDICATIONS FOR THE TEST: Chest pain COPD Heart Murmur Tobacco Smokingex Palpitations Fatigue Syncope Edema+ Hypertension+Diabetes Mellitus Rheumatic Fever SOB+KRAUS+Obesity Hyperlipidemia Family History HD Additional History PATIENT INFORMATION HEIGHT: 69 WEIGHT: 197 GENDER: Male B/P: 135/72 2-D/M-MODE INTERPRETATION: 2-D MEASUREMENTS OBSERVED VALUES IN CMS Right Ventricular Dimension (RVDd) 2.1 Interventricular Septum (Thickness)(IVsd) 0.9 Left Ventricular Internal Dimensions(LVIDd) 5.6 Left Ventricular Posterior Wall (Thickness)(LVPWd) 1.0 Aortic Root 3.1 Aortic Cusp Separation 2.3 Left Atrial Dimensions (LAD) 4.1 2D 1. Left atrium is mildly enlarged, left ventricle is normal size, mild concentric left ventricular hypertrophy, visually estimated ejection fraction 55% with no regional wall motion abnormality. 2. The right atrium and right ventricle are mildly enlarged with normal contractility. 3. The aortic valve is thickened and calcified leaflet continue to display mobility. 4. The mitral and tricuspid valve leaflets are minimally thickened. 5. The pulmonic valve is poorly visualized. 6. No significant pericardial effusion noted. DOPPLER INTERROGATION: Doppler interrogation of the aortic, mitral and tricuspid valvular presence of mild mitral and tricuspid regurgitation, tricuspid regurgitation jet velocity is inadequate for calculation of the right ventricular systolic pressure, grade 1 diastolic dysfunction seen with tissue Doppler evidence of raised left atrial pressure. CONCLUSION: 1. Mildly enlarged left atrium, normal left ventricular size, mild concentric left ventricular hypertrophy, visually estimated ejection fraction 55% with no regional wall motion abnormality. Grade 1 diastolic dysfunction seen with tissue Doppler evidence of raised left atrial pressure. 2. Thickened and calcified aortic valve without aortic stenosis aortic insufficiency. 3. Mildly enlarged right ventricle with normal contractility. 4. Mild mitral and tricuspid regurgitation, tricuspid regurgitation jet velocity is inadequate for calculation of the right ventricular systolic pressure, inferior vena cava is not well visualized.
== END ==
PROVIDERS: PCP Nurse Practitioner Family; Visit Provider Nurse Practitioner Family
DX: R06.00 Dyspnea, unspecified (principal)
CPT/HCPCS: 93306

== ENCOUNTER → 2019-03-21 09:43 | Outpatient (CLI) | payer MEDICARE, SELFPAY ==
[2019-03-21 09:47] LABS: Microscopic, Urine URINE MICROSCOPIC (MICROSCOPIC)
[2019-03-21 14:04] LABS: Albumin Level 3.6 gm/dL (3.4-5.0); Anion Gap 10.4 mEq/L (5-15); Blood Urea Nitrogen 20 mg/dL (7-18); Calcium 8.8 mg/dL (8.5-10.1); Carbon Dioxide 29 mmol/L (21.0-32.0); Chloride 105 mmol/L (98-107); Estimated Glomerular Filt Rate 35 ml/min (>60); GFR (African American) 42 ML/MIN (>60); Glucose 145 mg/dL (74-106); Phosphorous 3.6 mg/dL (2.4-4.9); Potassium 4.4 mmoL/L (3.5-5.1); Sodium 140 mmol/L (136-145)
[2019-03-21 14:16] LABS: Appearance,Urine CLEAR (Clear); Bilirubin,Urine Negative (Negative); Blood, Urine Negative (Negative); Color,Urine YELLOW (Yellow); Glucose,Urine (UA) Negative (Negative); Ketones,Urine Negative (Negative); Leukocyte Esterase,Urine Negative (Negative); Nitrate,Urine Negative (Negative); Protein,Urine Negative (Negative); Specific Gravity, Urine 1.015 (1.005-1.030); Urobilinogen,Urine 0.2 EU/dl (0.2)
[2019-03-21 14:28] LABS: Creatinine,Urine Random 143 mg/dL (20-320); Total Protein,Urine Random 24.8 mg/dL (0.0-11.9)
[2019-03-21 15:10] LABS: Bacteria,Urine Trace /lpf; Hyaline Casts,Urine Occasional #/lpf (0); Mucus,Urine Trace /lpf; WBC,Urine Occasional #/hpf (0-3)
[2019-03-21 15:15] LABS: Basophils # 0.1 K/mm3 (0-0.2); Basophils % 0.8 % (0.1-2.0); Eosinophils # 0.2 K/mm3 (0.0-0.4); Eosinophils % 2.7 % (0.1-12.0); Hematocrit 49.4 % (42.0-52.0); Hemoglobin 15.4 g/dL (14.1-18.0); Lymphocytes # 1.5 K/mm3 (0.7-4.5); Lymphocytes % 18.5 % (10-50); Mean Corpuscular HGB Conc 31.2 g/dL (31.8-35.4); Mean Corpuscular Hemoglobin 31.7 pg (27.0-31.2); Mean Corpuscular Volume 101.7 fl (80-94); Mean Platelet Volume 9.8 fl (7.4-10.4); Monocytes # 0.4 K/mm3 (0.1-1.0); Monocytes % 5.3 % (1.7-9.3); Neutrophils % 72.7 % (37.0-80.0); Platelet Count 267 K/mm3 (142-424); Red Blood Count 4.85 M/mm3 (4.60-6.20); Red Cell Distribution Width 13.6 % (11.5-17.5); White Blood Count 8.3 K/mm3 (4.8-10.8)
[2019-03-22 11:47] LABS: Vitamin D 25 Hydroxy 31.6 ng/mL (30.0-100.0)
[2019-03-23 21:15] LABS: Calcium, Ionized 5.2 mg/dL (4.5-5.6); Parathyroid Hormone Intact 35 pg/mL (15-65)
== END ==
PROVIDERS: Visit Provider Internal Medicine Nephrology
DX: N18.3 Chronic kidney disease, stage 3 (moderate) (principal)
CPT/HCPCS: 36415; 80069; 81001; 82330; 82570; 82652; 83970; 84155; 85025

== ENCOUNTER → 2019-03-30 12:47 | Outpatient (POV) | payer MEDICARE, SELFPAY | PROVIDERS: Visit Provider Internal Medicine Nephrology | DX: Z00.00 Encounter for general adult medical examination without abnormal findings (principal) ==

== ENCOUNTER → 2020-02-28 10:23 | Outpatient (CLI) | payer MEDICARE, SELFPAY ==
[2020-02-28 15:10] LABS: Coronavirus 19 IgG Antibody Negative (Negative); Coronavirus 19 IgM Antibody Negative (Negative)
== END ==
PROVIDERS: Visit Provider Internal Medicine Gastroenterology
DX: Z01.818 Encounter for other preprocedural examination (principal); Z13.810 Encounter for screening for upper gastrointestinal disorder; Z12.11 Encounter for screening for malignant neoplasm of colon
CPT/HCPCS: 36415; 86328

== ENCOUNTER 2020-03-01 07:02 | Day surgery (SDC) | payer MEDICARE, SELFPAY ==
[2020-02-23 14:14] VITALS: BMI 29.8
[2020-03-01] VITALS (8 sets, daily range): BP systolic 95–149; BP diastolic 52–91; PULSE 54–81; RESP 18; TEMP 36.2–36.6; O2SAT 92–97
--- NOTE | 2020-03-01 07:42 | HMH.ANESCL ---
[facility] Anesthesia Checklist - Patient Identification Patient Identification: Arm Band, Verbal (Name & ) - Structural Data Admitted From: Home Planned Operative Procedure/s: colon Consent for Planned Operative Procedure(s) Verified: Yes Verified Documents: History and Physical - NPO Status Verified Time NPO: 00:00 - Additional verifications Patient : No Anesthesia Reactions: No Hx Blood Transfusions: No Blood Transfusion Reaction: No Cephalosporin Allergy: No Previous Colonoscopy: Yes - Cardiovascular Assessment Heart Sounds: S1 & S2 Pulse Strength: Baseline Pulse Rhythm: Regular Peripheral Edema: No - Airway Assessment C-Spine Mobility Assessed: Yes TMJ Mobility Assessed: Yes Dentition: Good Dentition - Neurological Assessment Level of Consciousness: Awake, Alert, Appropriate Hx Seizures: No Numbness or tingling in extremities: No - Anesthesia Plan Anesthesia Risk discussed: Yes Anesthesia Plan: Verified ASA Class: II Anesthesia Type: [facility] History I have reviewed the patient's past medical history: Yes Medical History: Reports:: Cancer (prostate), Hypertension, Renal Insufficiency Denies:: Coronary Artery Disease, Cerebrovascular Accident, Diabetes Mellitus Type 1, Diabetes Mellitus Type 2, Internal Pacemaker, MRSA, Seizures *Have you ever received a pneumonia vaccine?: Yes *Have you received a flu vaccine this season?: Yes Other Medical History: Reports: Radiation Therapy Anesthesia experience/problems:: none Other Surgeries: Yes: Appendectomy, Cardiac Catheterization, Skin Cancer Excision. No: Pacemaker Amputation: No Fractures: No - *Social History Last grade of school completed: High school graduate Smoking Status: Former smoker Tobacco Type: cigarettes Smoking End Date: 2016 Alcohol Intake: never Substance Use Type: denies use *Occupational Status:: retired Housing: house Household Members: spouse *Travel in the last 8 weeks: None Family Hx:: No significant family history
--- NOTE | 2020-03-01 08:05 | P.PCN_ITS ---
[facility] Procedure Note Procedure Note:: Colonoscopy Procedure Report: Colonoscopy with cold snare polypectomy and snare cautery Endoscopist: Micheal Tyson II, MD Referring physician: RADHA Spears Date of Procedure: March 01, 2020 Equipment: Olympus 180 variable stiffness pediatric colonoscope Sedation: MAC sedation Indication: Mr. Robbins is a 79-year-old gentleman who has recently had some bright red blood when straining. He also has a solitary lesion in the perianal area and has requested a biopsy. His last colonoscopy was 2007 (Dr. Price Zelaya) and he did have diverticulosis. He reports no abdominal pain or rectal pain. He reports no weight loss or family history of colon cancer. His bowel function is regular but he does occasionally have loose stools. He does have a history of hemorrhoids. Procedure: Prior to the procedure, a history and physical exam was performed, and patient's medications and allergies were reviewed. The risks, benefits and alternatives of the sedation and procedure were discussed with the patient. All questions were answered and informed consent was obtained. The patient was brought to the procedure room. Patient identification and proposed procedure were verified by the physician and the nurse. The patient was placed in a left lateral decubitus position and the scope was passed under direct vision. Throughout the procedure, the patient's blood pressure, pulse, and oxygen saturations were monitored continuously. The colonoscopy was accomplished without difficulty. The patient tolerated the procedure well. Findings: On digital rectal examination there was normal rectal tone. There were large external hemorrhoidal tags that were soft and nonneoplastic. The prostate was not palpable. The colonoscope was introduced through the anal canal to the rectum and advanced to the cecum. The ileocecal valve and appendiceal orifice were identified. The scope was advanced a short distance into the ileum which appeared grossly normal. The scope was then withdrawn into the colon. There were a total of 11 colon polyps of variable size (cecum x1 (3 mm), ascending x3 (4, 5 and 6 mm), transverse x3 (5, 5 and 7 mm), descending x1 (5 mm), sigmoid x1 (19 mm pedunculated) and rectal x2 (7 and 9 mm)). All of these were removed via cold snare polypectomy except for the large pedunculated polyp that was removed via snare cautery. There were scattered extensive diverticuli throughout the descending and sigmoid colon (LEFT colon). The rectum itself was normal. Upon retroflexion within the rectum there were grade 2 internal hemorrhoids. The preparation was excellent throughout with [place] Preparation Score of 9. The cecal time was 18 minutes. Impression: 1. Colonic polyps x11 2. Extensive left-sided diverticulosis 3. Grade 2 internal hemorrhoids with external hemorrhoidal tags Plan: Based upon the size, number and adenomatous nature of these polyps, I would recommend repeat surveillance colonoscopy again in 1-2 years. I would encourage bulk fiber supplementation on a maintenance basis. The external lesions are hemorrhoidal tags. These are not resulting in any real issue with pain or interference with defecation and often are just cosmetic meaning removal is not necessitated.
== END 2020-03-01 09:30 | disposition home or self-care (01) ==
PROVIDERS: PCP Nurse Practitioner Family; Visit Provider Internal Medicine Gastroenterology
PROC: 0DJD8ZZ Inspection of Lower Intestinal Tract, Via Natural or Artificial Opening Endoscopic (ICD-10-PCS; CPT 45378; principal; 2020-03-01 08:00)
DX: K62.9 Disease of anus and rectum, unspecified (principal); K63.5 Polyp of colon; K57.30 Diverticulosis of large intestine without perforation or abscess without bleeding; K64.1 Second degree hemorrhoids; Z85.46 Personal history of malignant neoplasm of prostate; Z85.828 Personal history of other malignant neoplasm of skin; I10 Essential (primary) hypertension; N28.9 Disorder of kidney and ureter, unspecified; Z90.49 Acquired absence of other specified parts of digestive tract; Z79.899 Other long term (current) drug therapy
CPT/HCPCS: 45385; 88305

== ENCOUNTER → 2020-04-29 08:58 | Outpatient (CLI) | payer MEDICARE, SELFPAY ==
[2020-04-29 09:02] LABS: Microscopic, Urine URINE MICROSCOPIC (MICROSCOPIC)
[2020-04-29 13:32] LABS: Albumin Level 3.8 g/dl (3.5-5.0); Anion Gap 14.3 mEq/L (5-15); Basophils # 0.1 K/mm3 (0-0.2); Basophils % 1.1 % (0.1-2.0); Blood Urea Nitrogen 23 mg/dl (9-20); Carbon Dioxide 25 mmol/L (22.0-30.0); Chloride 103 mmol/L (98-107); Eosinophils # 0.2 K/mm3 (0.0-0.4); Eosinophils % 3.6 % (0.1-12.0); Estimated Glomerular Filt Rate 42 ml/min (>60); GFR (African American) 51 ML/MIN (>60); Glucose 177 mg/dl (74-100); Hematocrit 48.2 % (42.0-52.0); Hemoglobin 15.6 g/dL (14.1-18.0); Lymphocytes # 1.6 K/mm3 (0.7-4.5); Lymphocytes % 24.3 % (10-50); Mean Corpuscular HGB Conc 32.5 g/dL (31.8-35.4); Mean Corpuscular Hemoglobin 31.5 pg (27.0-31.2); Mean Platelet Volume 8.6 fl (7.4-10.4); Monocytes # 0.4 K/mm3 (0.1-1.0); Monocytes % 5.4 % (1.7-9.3); Neutrophils # 4.4 K/mm3 (1.8-7.8); Neutrophils % 65.7 % (37.0-80.0); Phosphorous 3.7 mg/dl (2.5-4.5); Platelet Count 260 K/mm3 (142-424); Potassium 4.3 mmoL/L (3.5-5.1); Red Blood Count 4.96 M/mm3 (4.60-6.20); Red Cell Distribution Width 14.3 % (11.5-17.5); Sodium 138 mmol/L (136-145); White Blood Count 6.8 K/mm3 (4.8-10.8)
[2020-04-29 14:16] LABS: Appearance,Urine CLEAR (Clear); Bilirubin,Urine Negative (Negative); Blood, Urine Negative (Negative); Color,Urine YELLOW (Yellow); Glucose,Urine (UA) Negative (Negative); Ketones,Urine Negative (Negative); Leukocyte Esterase,Urine Negative (Negative); Nitrate,Urine Negative (Negative); PH,Urine 5.5 (5.0-8.5); Protein,Urine 1+ (Negative); Specific Gravity, Urine >= 1.030 (1.005-1.030); Urobilinogen,Urine 0.2 EU/dl (0.2)
[2020-04-29 14:36] LABS: Squamous Epithelial Cell,Urine Occasional #/hpf (0-5)
[2020-04-29 15:51] LABS: Creatinine,Urine Random 264 mg/dL (Not Estab.)
== END ==
PROVIDERS: Visit Provider Internal Medicine Nephrology
DX: N18.30 Chronic kidney disease, stage 3 unspecified (principal)
CPT/HCPCS: 36415; 80069; 81001; 82570; 84155; 85025

== ENCOUNTER → 2021-04-30 09:31 | Outpatient (CLI) | payer MEDICARE, SELFPAY ==
[2021-04-30 09:35] LABS: Microscopic, Urine URINE MICROSCOPIC (MICROSCOPIC)
[2021-04-30 14:23] LABS: Appearance,Urine CLEAR (Clear); Bilirubin,Urine Negative (Negative); Blood, Urine Negative (Negative); Color,Urine YELLOW (Yellow); Glucose,Urine (UA) Negative (Negative); Ketones,Urine Negative (Negative); Leukocyte Esterase,Urine Negative (Negative); Nitrate,Urine Negative (Negative); Protein,Urine 1+ (Negative); Specific Gravity, Urine 1.015 (1.005-1.030); Urobilinogen,Urine 0.2 EU/dl (0.2)
[2021-04-30 14:59] LABS: Creatinine,Urine Random 141 mg/dL (Not Estab.)
[2021-04-30 15:13] LABS: Basophils # 0.1 K/mm3 (0-0.2); Basophils % 0.7 % (0.1-2.0); Eosinophils # 0.2 K/mm3 (0.0-0.4); Eosinophils % 2.8 % (0.1-12.0); Hematocrit 49.7 % (42.0-52.0); Hemoglobin 15.9 g/dL (14.1-18.0); Lymphocytes # 1.8 K/mm3 (0.7-4.5); Lymphocytes % 26.7 % (10-50); Mean Corpuscular Hemoglobin 32.1 pg (27.0-31.2); Mean Corpuscular Volume 100.3 fl (80-94); Mean Platelet Volume 9.7 fl (7.4-10.4); Monocytes # 0.4 K/mm3 (0.1-1.0); Monocytes % 5.9 % (1.7-9.3); Neutrophils # 4.4 K/mm3 (1.8-7.8); Neutrophils % 63.9 % (37.0-80.0); Platelet Count 268 K/mm3 (142-424); Red Blood Count 4.96 M/mm3 (4.60-6.20); White Blood Count 6.9 K/mm3 (4.8-10.8)
[2021-04-30 15:23] LABS: Squamous Epithelial Cell,Urine Occasional #/hpf (0-5); WBC,Urine Occasional #/hpf (0-3)
[2021-04-30 15:29] LABS: Albumin Level 4.3 g/dl (3.5-5.0); Anion Gap 13.6 mEq/L (5-15); Blood Urea Nitrogen 24 mg/dl (9-20); Calcium 9.2 mg/dl (8.4-10.2); Carbon Dioxide 29 mmol/L (22.0-30.0); Chloride 102 mmol/L (98-107); Estimated Glomerular Filt Rate 37 ml/min (>60); GFR (African American) 44 ML/MIN (>60); Glucose 134 mg/dl (74-100); Phosphorous 3.7 mg/dl (2.5-4.5); Potassium 4.6 mmoL/L (3.5-5.1); Sodium 140 mmol/L (136-145)
[2021-04-30 15:40] LABS: Intact Parathyroid Hormone 64.5 pg/mL (7.5-53.5)
[2021-04-30 15:45] LABS: 25-OH Vitamin D, Total 34.6 ng/mL (30-100)
== END ==
PROVIDERS: Visit Provider Internal Medicine Nephrology
DX: N18.30 Chronic kidney disease, stage 3 unspecified (principal)
CPT/HCPCS: 36415; 80069; 81001; 82306; 82330; 82570; 83970; 84155; 85025

== ENCOUNTER → 2021-05-05 15:23 | Outpatient (POV) | payer MEDICARE, SELFPAY | PROVIDERS: Visit Provider Internal Medicine Nephrology | DX: Z00.00 Encounter for general adult medical examination without abnormal findings (principal) ==

== ENCOUNTER → 2021-12-22 13:09 | Outpatient (CLI) | payer MEDICARE, SELFPAY ==
--- NOTE | 2021-12-22 13:15 | XR_ITS ---
FINAL REPORT CLINICAL HISTORY: CHRONIC OBSTRUCTIVE PULMONARY DISEASE, UNSPECIFIED FINDINGS: 2 views of the chest were obtained . The heart is normal in size. The mediastinum is within normal limits. The lungs are hyperexpanded consistent with COPD. There is mild pulmonary scarring. There is no pneumothorax. Osseous structures are unremarkable. IMPRESSION: No acute cardiopulmonary process. Reviewed, Interpreted and Dictated by Price Grove III, MD Transcribed by Arielle Goodwin Authenticated and [facility]
== END ==
PROVIDERS: PCP Nurse Practitioner Family; Visit Provider Nurse Practitioner Family
DX: J44.9 Chronic obstructive pulmonary disease, unspecified (principal)
CPT/HCPCS: 71046

== ENCOUNTER → 2022-04-07 14:11 | Outpatient (CLI) | payer MEDICARE, SELFPAY ==
--- NOTE | 2022-04-07 14:20 | CT_ITS ---
FINAL REPORT TECHNIQUE: Axial CT images were performed from the lung bases through the pubic symphysis. Coronal reformats were submitted and reviewed. This study was performed with techniques to keep radiation doses as low as reasonably achievable (ALARA). Individualized dose reduction techniques using automated exposure control or adjustment of mA and/or kV according to the patient's size were employed. CLINICAL HISTORY: ABD PAIN,RT FLANK PAIN FINDINGS: Abdomen: There is mild bibasilar atelectasis. The liver, spleen and pancreas are unremarkable. There are no adrenal masses. There are multiple bilateral renal masses many of which are likely simple cysts. There is a 17 mm mass in the anterior left kidney that is nonspecific and favors a hyperdense cyst over neoplasm. There are multiple nonobstructing left renal stones with the largest measuring up to 4 mm. There is no hydronephrosis. There is severe vascular calcification. Pelvis: The appendix is not identified. There is diverticulosis of the sigmoid colon. There are no distal ureteral stones. There is mild bladder wall thickening which is likely inflammatory. There are presumed prostatic seed implants. IMPRESSION: Multiple bilateral renal masses many of which are likely simple cysts with a nonspecific anterior left renal mass favoring a hyperdense cyst over neoplasm. Left nephrolithiasis. Mild bladder wall thickening is likely inflammatory. Diverticulosis without evidence of diverticulitis. Reviewed, Interpreted and Dictated by Price Grove III, MD Transcribed by Sridhar Arnold Authenticated and . [facility]
== END ==
PROVIDERS: PCP Nurse Practitioner Family; Visit Provider Nurse Practitioner Family
DX: R10.9 Unspecified abdominal pain (principal); Z87.442 Personal history of urinary calculi
CPT/HCPCS: 74176

== ENCOUNTER → 2022-05-22 11:43 | Outpatient (CLI) | payer MEDICARE, SELFPAY ==
[2022-05-22 12:08] LABS: Microscopic, Urine URINE MICROSCOPIC (MICROSCOPIC)
[2022-05-22 12:23] LABS: Basophils # 0.1 K/mm3 (0-0.2); Basophils % 1.3 % (0.1-2.0); Eosinophils # 0.4 K/mm3 (0.0-0.4); Eosinophils % 4.7 % (0.1-12.0); Hematocrit 50.2 % (42.0-52.0); Hemoglobin 15.8 g/dL (14.1-18.0); Lymphocytes # 1.7 K/mm3 (0.7-4.5); Mean Corpuscular HGB Conc 31.5 g/dL (31.8-35.4); Mean Corpuscular Volume 98.2 fl (80-94); Mean Platelet Volume 8.8 fl (7.4-10.4); Monocytes # 0.5 K/mm3 (0.1-1.0); Monocytes % 5.8 % (1.7-9.3); Neutrophils # 6.1 K/mm3 (1.8-7.8); Neutrophils % 69.2 % (37.0-80.0); Platelet Count 269 K/mm3 (142-424); Red Blood Count 5.11 M/mm3 (4.60-6.20); Red Cell Distribution Width 14.4 % (11.5-17.5); White Blood Count 8.8 K/mm3 (4.8-10.8)
[2022-05-22 12:26] LABS: Appearance,Urine CLEAR (Clear); Blood, Urine Negative (Negative); Color,Urine YELLOW (Yellow); Glucose,Urine (UA) Negative (Negative); Ketones,Urine TRACE (Negative); Leukocyte Esterase,Urine Negative (Negative); Nitrate,Urine Negative (Negative); PH,Urine 5.5 (5.0-8.5); Protein,Urine 2+ (Negative); Specific Gravity, Urine 1.025 (1.005-1.030); Urobilinogen,Urine 0.2 EU/dl (0.2)
[2022-05-22 12:30] LABS: Bilirubin,Urine Negative (Negative)
[2022-05-22 12:47] LABS: Hyaline Casts,Urine Occasional #/lpf (0); Mucus,Urine Trace /lpf
[2022-05-22 13:10] LABS: Creatinine,Urine Random 259 mg/dL (Not Estab.)
[2022-05-22 16:12] LABS: Albumin Level 4.5 g/dl (3.5-5.0); Anion Gap 11.5 mEq/L (5-15); Blood Urea Nitrogen 25 mg/dl (9-20); Calcium 8.5 mg/dl (8.4-10.2); Carbon Dioxide 26 mmol/L (22.0-30.0); Chloride 107 mmol/L (98-107); Estimated Glomerular Filt Rate 34 ml/min (>60); GFR (African American) 42 ML/MIN (>60); Glucose 87 mg/dl (74-100); Phosphorous 3.7 mg/dl (2.5-4.5); Potassium 4.5 mmoL/L (3.5-5.1); Sodium 140 mmol/L (136-145)
[2022-05-22 16:23] LABS: Intact Parathyroid Hormone 95.1 pg/mL (7.5-53.5)
[2022-05-22 16:28] LABS: 25-OH Vitamin D, Total 45.8 ng/mL (30-100)
== END ==
PROVIDERS: PCP Nurse Practitioner Family; Visit Provider Internal Medicine Nephrology
DX: N18.32 Chronic kidney disease, stage 3b (principal)
CPT/HCPCS: 36415; 80069; 81001; 82306; 82570; 83970; 84155; 85025

== ENCOUNTER → 2022-05-28 15:59 | Outpatient (POV) | payer MEDICARE, SELFPAY | PROVIDERS: Visit Provider Internal Medicine Nephrology | DX: Z00.00 Encounter for general adult medical examination without abnormal findings (principal) ==

== ENCOUNTER → 2022-11-19 13:15 | Outpatient (CLI) | payer MEDICARE, SELFPAY ==
--- NOTE | 2022-11-19 13:21 | CT_ITS ---
FINAL REPORT TECHNIQUE: Axial CT images were performed from the lung bases through the iliac crests. Coronal and sagittal reformats were submitted.This study was performed with techniques to keep radiation doses as low as reasonably achievable (ALARA). Individualized dose reduction techniques using automated exposure control or adjustment of mA and/or kV according to the patient''''s size were employed. CLINICAL HISTORY: 6 MONTH F/U ON LT RENAL NEOPLASM,H/O KIDNEY DISEASE COMPARISON: 04/07/2022 FINDINGS: Exam is limited without the benefit of IV contrast. ABDOMEN: The lung bases are clear. The liver parenchyma is homogeneous. The gallbladder is contracted. The spleen, pancreas, and adrenals are unremarkable. There are multiple bilateral renal masses, the largest on the left side measuring up to 8.3 cm in size, was previously 7.8 cm on the prior exam of 2021. Most of these lesions appear cystic. There is a hyperdense lesion in the upper pole of the left kidney which has increased in size, is now 2 cm in diameter and was 1.6 cm and 2021. Bilateral nephrolithiasis is again noted. No evidence of adenopathy is seen. IMPRESSION: Renal lesions noted on prior CT examination of 2021 have increased somewhat in size. Given the enlargement of the complex lesion in the left upper pole, would consider either CT or MRI using renal mass protocol. Reviewed, Interpreted and Dictated by Chato Álvarez MD Transcribed by Ana Hickman Authenticated and . [facility]
== END ==
PROVIDERS: PCP Nurse Practitioner Family; Visit Provider Nurse Practitioner Family
DX: D49.512 Neoplasm of unspecified behavior of left kidney (principal)
CPT/HCPCS: 74150

== ENCOUNTER → 2022-12-15 09:05 | Outpatient (CLI) | payer MEDICARE, SELFPAY ==
--- NOTE | 2022-12-15 09:29 | MR_ITS ---
FINAL REPORT CLINICAL HISTORY: NEOPLASM OF KIDNEY small and large mass on left kidney patient knows about the large mass prior ct scan pain when urinating from large mass 18 ml prohance given COMPARISON: None FINDINGS: Multiplanar MR imaging of the abdomen was performed without and with contrast. Images of the liver reveal no evidence of mass. There is no evidence of biliary ductal dilatation. The gallbladder has an unremarkable appearance. The exam was performed to follow-up multiple renal cystic appearing lesions on a CT examination. There is a dominant fluid signal focus on the right side measuring up to 6 cm in size, and on the left side up to 8.1 cm in size. The majority of cysts present appear to be simple cysts. There are several cysts laterally, however, that appear to represent complex cysts with increased signal on T1 and not T2 images. This mixture of simple and complex cysts require follow-up with attention to atypical cysts bilaterally. Would recommend 6 to 12-month follow-up with either CT renal protocol or MRI with and without contrast for further evaluation. No other mass or adenopathy is identified. No abnormal fluid collection is seen. No abnormal contrast enhancement is seen on the postcontrast images. IMPRESSION: Multiple renal cystic masses, some of which appear to represent complex cysts as seen on the prior CT of 11/19/2022. Would recommend follow-up either CT renal protocol or MRI with and without contrast in 6 to 12 months with special attention to the atypical cysts seen bilaterally. Reviewed, Interpreted and Dictated by Kieran Howard MD Transcribed by Ana Hickman Authenticated and . [facility]
[2022-12-15 09:48] LABS: Blood Urea Nitrogen 24 mg/dl (9-20); Estimated Glomerular Filt Rate 39 ml/min (>60); GFR (African American) 47 ML/MIN (>60)
== END ==
PROVIDERS: PCP Nurse Practitioner Family; Visit Provider Nurse Practitioner Family
DX: D49.519 Neoplasm of unspecified behavior of unspecified kidney (principal)
CPT/HCPCS: 36415; 74183; 82565; 84520; A9576

== ENCOUNTER 2023-05-20 13:33 | Outpatient (CLI) | payer OTHER, SELFPAY ==
[2023-05-20 13:47] LABS: Microscopic, Urine URINE MICROSCOPIC (MICROSCOPIC)
[2023-05-20 14:06] LABS: Appearance,Urine CLEAR (Clear); Blood, Urine Negative (Negative); Color,Urine YELLOW (Yellow); Glucose,Urine (UA) Negative (Negative); Ketones,Urine TRACE (Negative); Leukocyte Esterase,Urine Negative (Negative); Nitrate,Urine Negative (Negative); PH,Urine 5.5 (5.0-8.5); Protein,Urine 2+ (Negative); Specific Gravity, Urine >= 1.030 (1.005-1.030); Urobilinogen,Urine 0.2 EU/dl (0.2)
[2023-05-20 14:08] LABS: Bilirubin,Urine 1+ (Negative)
[2023-05-20 14:13] LABS: Creatinine,Urine Random 267 mg/dL (Not Estab.)
[2023-05-20 14:16] LABS: Hematocrit 45.5 % (42.0-52.0); Hemoglobin 15.3 g/dL (14.1-18.0); Mean Corpuscular HGB Conc 33.7 g/dL (31.8-35.4); Mean Corpuscular Hemoglobin 32.8 pg (27.0-31.2); Mean Corpuscular Volume 97.4 fl (80-94); Platelet Count 230 K/mm3 (142-424); Red Blood Count 4.67 M/mm3 (4.60-6.20); Red Cell Distribution Width 14.2 % (11.5-17.5)
[2023-05-20 14:25] LABS: Squamous Epithelial Cell,Urine Occasional #/hpf (0-5); WBC,Urine Occasional #/hpf (0-3)
[2023-05-20 14:26] LABS: Bacteria,Urine Trace /lpf; Chloride 104 mmol/L (98-107); Sodium 140 mmol/L (136-145)
[2023-05-20 14:27] LABS: Potassium 4.2 mmoL/L (3.5-5.1)
[2023-05-20 14:29] LABS: Blood Urea Nitrogen 29 mg/dl (9-20); Estimated Glomerular Filt Rate 39 ml/min (>60); GFR (African American) 47 ML/MIN (>60)
[2023-05-20 14:30] LABS: Anion Gap 13.2 mEq/L (5-15); Calcium 8.8 mg/dl (8.4-10.2); Carbon Dioxide 27 mmol/L (22.0-30.0); Glucose 93 mg/dl (74-100); Phosphorous 4.5 mg/dl (2.5-4.5)
[2023-05-20 14:42] LABS: Intact Parathyroid Hormone 146.6 pg/mL (7.5-53.5)
[2023-05-20 14:47] LABS: 25-OH Vitamin D, Total 24.7 ng/mL (30-100)
== END 2023-05-20 23:59 ==
PROVIDERS: PCP Nurse Practitioner Family; Visit Provider Internal Medicine Nephrology
DX: N18.32 Chronic kidney disease, stage 3b (principal); N39.0 Urinary tract infection, site not specified; E55.9 Vitamin D deficiency, unspecified
CPT/HCPCS: 36415; 80069; 81001; 82306; 82570; 83970; 84155; 85014; 85018; 85048; 85049

== ENCOUNTER 2023-05-27 15:10 | Outpatient (POV) | payer OTHER, SELFPAY | END 2023-05-27 23:59 | disposition home or self-care (01) | LOC: SC 15:10 | PROVIDERS: Visit Provider Internal Medicine Nephrology | DX: Z00.00 Encounter for general adult medical examination without abnormal findings (principal) ==

== ENCOUNTER 2024-06-26 13:51 | Outpatient (CLI) | payer OTHER, SELFPAY ==
[2024-06-26 14:05] LABS: Microscopic, Urine URINE MICROSCOPIC (MICROSCOPIC)
[2024-06-26 15:21] LABS: Albumin Level 4.4 g/dl (3.5-5.0); Anion Gap 11.7 mEq/L (5-15); Blood Urea Nitrogen 24 mg/dl (9-20); Calcium 9.3 mg/dl (8.4-10.2); Carbon Dioxide 26 mmol/L (22.0-30.0); Chloride 107 mmol/L (98-107); Estimated Glomerular Filt Rate 36 ml/min (>60); GFR (African American) 44 ML/MIN (>60); Glucose 105 mg/dl (74-100); Phosphorous 3.9 mg/dl (2.5-4.5); Potassium 4.7 mmoL/L (3.5-5.1); Sodium 140 mmol/L (136-145)
[2024-06-26 15:23] LABS: Appearance,Urine CLEAR (Clear); Bilirubin,Urine Negative (Negative); Blood, Urine Negative (Negative); Color,Urine YELLOW (Yellow); Glucose,Urine (UA) Negative (Negative); Ketones,Urine Negative (Negative); Leukocyte Esterase,Urine Negative (Negative); Nitrate,Urine Negative (Negative); Protein,Urine 1+ (Negative); Specific Gravity, Urine >= 1.030 (1.005-1.030); Urobilinogen,Urine 0.2 EU/dl (0.2)
[2024-06-26 15:24] LABS: Hematocrit 45.9 % (42.0-52.0); Mean Corpuscular HGB Conc 32.7 g/dL (31.8-35.4); Mean Corpuscular Hemoglobin 31.1 pg (27.0-31.2); Mean Corpuscular Volume 95.2 fl (80-94); Platelet Count 272 K/mm3 (142-424); Red Blood Count 4.82 M/mm3 (4.60-6.20); Red Cell Distribution Width 13.2 % (11.5-17.5); White Blood Count 8.3 K/mm3 (4.8-10.8)
[2024-06-26 15:33] LABS: Intact Parathyroid Hormone 92.8 pg/mL (7.5-53.5)
[2024-06-26 15:35] LABS: 25-OH Vitamin D, Total 34.1 ng/mL (30-100)
[2024-06-26 15:51] LABS: Creatinine,Urine Random 156 mg/dL (Not Estab.)
[2024-06-26 15:56] LABS: WBC,Urine Occasional #/hpf (0-3)
== END 2024-06-26 23:59 | disposition home or self-care (01) ==
LOC: LAB 13:52
PROVIDERS: PCP Nurse Practitioner Family; Visit Provider Internal Medicine Nephrology
DX: N18.32 Chronic kidney disease, stage 3b (principal)
CPT/HCPCS: 36415; 80069; 81001; 82306; 82570; 83970; 84156; 85027

== ENCOUNTER 2025-02-27 13:58 | Outpatient (CLI) | payer MEDICARE, SELFPAY ==
--- OUTSIDE RECORDS SUMMARY | 2023-08-05 12:02 | XMS_ITS | Encounter Summary ---
Author Organization [facility] Address [address] [place] [address] Care Team Providers Care Finishing Technician Name Role Phone Rosalba Smith COLLEGE PROFESSOR Primary Care Provider [phone] Encounter Details Date Type Department Care Team (Late st Contact Info) Description 08/05/2023 1:02 PM EDT Hospital Encounter [facility] [address] [place] [address] Social History Tobacco Use Types Packs/Day Years Used Date Smoking Tobacco: Former Cigarettes 1.1 70.7 0 04/26/1963 - 07/10/2016 Passive Smoke Exposure: Past Smokeless Tobacco: Never Alcohol Use Standard Drinks/Week Comments Never 0 (1 standard drink = 0.6 oz pur e alcohol) Sex and Gender Information Value Date Recorded Sex Assigned at Male 10/30/2024 8:30 AM EDT Legal Sex Male 11:12 AM EDT Gender Identity Not on file Sexual Orientation Straight 10/30/2024 8 :30 AM EDT documented as of this encounter Plan of Treatment Not on file documented as of this encounter Procedures Procedure Name Priority Date/Time Associated Diagnosis Comments XR CHEST PA AND LATERAL Routine 08/05/2023 1:18 PM EDT Mucopurulent chronic bronchitis documented in this encounter Results * XR Chest PA & Lateral (08/05/2023 1:18 PM EDT) Anatomical Region Laterality Modality Body, Chest N/A Radiographic Jumana ging Narrative 08/05/2023 5:07 PM EDT Rah Robbins [id number] 08/05/2023 Chest X-Ray PA & Lateral Indication: Shortness of breath Comparison: None available Findings: Lungs are clear. Chronic hyperexpansion of the lungs. With flattening of the diaphragms. No effusions. Heart and mediastinum unremarkable. No pneumothorax. Interpretation: No acute cardiopulmonary findings. Jl Cardozo, DO Please note that portions of this note may have been completed with a voice recognition program. Efforts were made to edit the dictations, but occasionally words are mistranscribed. Manas Cardozo DO IMG DIAGNOSTIC IMAG ING ORDERABLES Final Result documented in this encounter Visit Diagnoses Not on filedocumented in this encounter Care Teams Finishing Technician Relationship Specialty Start Date End Date Rosalba Smith APRN [address] [place] [address] PCP - General Nurse Practitioner 08/05/23 documented as of this encounter
--- NOTE | 2025-02-27 14:02 | CT_ITS ---
FINAL REPORT TECHNIQUE: Thin section axial images were obtained from the lung bases to the pubic symphysis without IV contrast. Coronal reconstruction images were obtained from the axial data. Exam was performed using dose reduction technique. CLINICAL HISTORY: CALCULUS OF KIDNEY COMPARISON: 11/19/2022 FINDINGS: Left lower lobe and lingular opacities are unchanged, likely scar. There are several nonobstructing stones in the lower pole of the left kidney. One stone seen on the prior is not present today, presumably passed. Bilateral renal lesions are most likely cysts. There is a hypodense lesion in the upper pole of the left kidney which could be a proteinaceous or hemorrhagic cyst measuring 25 mm, was 19 mm. The gallbladder is present. The remaining unenhanced solid abdominal organs are unremarkable. There is no evidence of small bowel obstruction. There is diverticulosis without evidence of diverticulitis. The appendix is not visualized but there are no secondary findings to suggest appendicitis. Radiation markers are seen in the prostate. There is no lymphadenopathy or ascites. No acute osseous abnormality is identified. IMPRESSION: Several nonobstructing left renal stones. Bilateral renal lesions, likely a combination of simple and complex cysts. If indicated, consider renal mass protocol CT. Reviewed, Interpreted and Dictated by Kimberly Lang MD Transcribed by Mariela Montgomery Authenticated and [facility]
--- OUTSIDE RECORDS SUMMARY | 2025-02-27 14:05 | XMS_ITS | Clinical Summary ---
Author Organization [facility] Address [address] [place] [address] Care Team Providers Care Greenhouse Instructor Name Role Phone Rosalba Smith KASIA Primary Care Provider [phone] Allergies No known active allergies Medications amLODIPine (Norvasc) 10 MG tablet TAKE 1 TABLET DAILY. 6 Active doxazosin (Cardura) 4 MG tablet TAKE 1 TABLET DAILY. 6 Active tamsulosin (Flomax) 0.4 MG 24 hr capsule 2 Active furosemide (Lasix) 20 MG tablet 3 Active ipratropium-alb uterol (Duo-Neb) 0.5-2.5 mg/3 mL nebulizer solution INHALE 1 VIAL VIA NEBULIZER 4 TIMES PER DAY 3 Active predniSONE (Deltasone) 2.5 MG tablet Take one tablet by oral route once daily on Wednesday, Wednesday, and Wednesday for COPD 4 Active Active Problems Problem Noted Date Diagnosed Date Hypertensive chronic kidney disease with stage 1 through stage 4 chronic kidney disease, or unspecified chronic kidney disease 06/30/2024 Anemia in stage 3b chronic kidney disease 2024 Other hyperlipidemia 06/30/2024 Chronic kidney disease-mineral and bone disorder (CKD-MBD) 06/30/2024 Proteinuria 05/02/2020 Recurrent nephrolithiasis 10/19/2016 Essential (primary) hypertension 03/31/2016 CKD (chronic kidney disease) stage 3, GFR 30-59 ml/min 12/09/2015 Immunizations Immunization Administration Dates Next Due Influenza, high-dose, quadrivalent 02/10/2023, Influenza, injectable, quadrivalent 03/14/2018 Influenza, injectable, quadrivalent, preservativ e free 01/17/2022,01/21/2021 Pfizer Covid-19 Vaccine 12y+ , Zhou Protein, PF, Javi-Sucrose 04/02/2023,03/24/2023 Rsvpref, Recombinant, Protein Subunit, Adjuvent 03/22/2023 Zoster, Recombinant 01/21/2021,04/23/2020 Family History Medical History Relation Name Comments Cardiac disorder Mother Hyperlipidemia Mother Hypertension Mother Stroke Mother Relation Name Status Comments Mother Social History Tobacco Use Types Packs/Day Years Used Date Smoking Tobacco: Former Smokeless Tobacco: Never Sex and Gender Information Value Date Recorded Sex Assigned at Not on file Legal Sex Male 6:04 PM EDT Gender Identity Not on file Sexual Orientation Not on file Last Filed Vital Signs Vital Sign Reading Time Taken Comments Blood Pressure 154/62 06/30/2024 12:24 PM EST retook and it was 144/60 Pulse 63 06/30/2024 12:24 PM EST Temperature 36.6 C (97.8 F) 06/30/2024 12:24 PM EST Respiratory Rate 18 06/30/2024 12:2 4 PM EST Oxygen Saturation 97% 06/30/2024 12: 24 PM EST Inhaled Oxygen Concentration - - Weight 97.1 kg (214 lb) 06/30/2024 12:2 4 PM EST Height 172.7 cm (5' 8 ) 06/30/2024 12:2 4 PM EST Body Mass Index 32.54 06/30/2024 12:24 PM EST Plan of Treatment Upcoming Encounters Date Type Department Care Team (Late st Contact Info) Description 06/29/2025 1:20 PM EST Office Visit [facility] [address] [place] [id number] Calvin Carson MD [address] [place] [phone] Health Maintenance Due Date Last Done Comments [facility]-Depression Screening 1940 [facility]-Medicare Annual Wellness (AWV) 1940 [facility]-/Child/Adol SDOH Screenings 1940 [facility]- SDOH Screenings 1960 [facility]-Adult SDOH Screenings 1960 [facility]-DTaP,Tdap,and Td Vaccines (1 - Tdap) 1961 [id number] Vaccine (8 - Moderna risk 2023- season) 2024 03/08/2024, 04/02/2023, 03/24/2023, Additional history exists [facility]-Influenza Vaccine (#1) 12/25/202402/07, 02/10/2023, 01/17/2022, Additional history exists [facility]-Zoster Vaccines Completed 01/21/2021, [facility]-RSV Vaccine: 60+ Years or Completed 03/22/2023 [facility]-Pneumococcal Vaccine: 50+ Years Completed 08/05/2023 [facility]-Obesity Intervention Completed 06/30/2024, 04/2023 HPV Vaccines Aged Out No longer eligi ble based on patient's age to complete this topic [facility]-HIB Vaccines Aged Out No longer e ligible based on patient's age to complete this topic [facility]-Hepatitis A Vaccines Aged Out No longer eligible based on patient's age to complete this topic [facility]-IPV Vaccines Aged Out No longer e ligible based on patient's age to complete this topic [facility]-Rotavirus Vaccines Aged Out No lo nger eligible based on patient's age to complete this topic Insurance MEDICARE Care Teams Greenhouse Instructor Relationship Specialty Start Date End Date Rosalba Smith APRN [address] [place] [address] PCP - General 09/06/20
--- OUTSIDE RECORDS SUMMARY | 2025-02-27 14:05 | XMS_ITS | Continuity of Care Document ---
Author Organization [place] [email or web address] [facility] Address [address] [place] [address] Assessment Encounter Date Assessment Date Assessment LastModified by Organization Details LastModified Time 01/01/2025 01/01/2025 Rah Robbins presented with persistent diarrhea for 3 weeks following a restaurant meal, with initial severe symptoms requiring bathroom visits every 15 minutes. He reported a 2-year history of chronic diarrhea with gas pain but no blood in stool or fever. Physical exam revealed hyperactive bowel sounds. A stool collection kit was provided to rule out bacterial infection. Management included possible continuation of probiotics and consideration of IBS medication pending test results. The patient has a scheduled gastroenterology appointment on March 05. Preventive care recommendations included a senior flu shot. Not available 01/01/2025 15:11:16 Plan of Treatment Reminders Order Date Submit Date Provider Last Modified By Organization Details Last Modified Time Details Appointments None recorded. Lab gastrointes tinal pathogens DNA + RNA panel, JOSE FRANCISCO+non-pro be, stool 2024 025 [facility] [address] [place] [address], [place], [address], 10:08:46 Referral None recorded. Procedures None recorded. Surgeries None recorded. Imaging None recorded. Medication Orders None recorded. Patient TargetsNo targets recorded. Patient InstructionsNo instructions recorded. Reason for Referral None Reported. Results Created Date Observation Date Name Description Value Unit Range Abnormal Flag Note LastModifiedBy Organization Detail LastModifiedTime 01/03/2001/08/2025 GI PROFI LE, STOOL , PCR campylobacte r COMMEN T Test not perfo rmed. Consi stenc y of stool speci men too solid for sidra sis. This is a corre cted repor t. The previ ously repor terra resul t was: ===== ===Te st=== ===== ===== Resul t==== ===== ==Uni ts=== ====D ate Resul terra= Test not perfo rmed. The requi red speci men for the test order ed was not recei lorenzo. ORIGI NAL REPOR T SENT 2024 Not Available [facility] ([facility]) [address], [place], [address], 01/08/2025 09:07:33 01/03/2001/08/2025 GI PROFI LE, STOOL , PCR C difficile toxin A/B COMMEN T Test not perfo rmed. Consi stenc y of stool speci men too solid for sidra sis. This is a corre cted repor t. The previ ously repor terra resul t was: ===== ===Te st=== ===== ===== Resul t==== ===== ==Uni ts=== ====D ate Resul terra= Test not perfo rmed. The requi red speci men for the test order ed was not recei lorenzo. Not Available [facility] ([facility]) [address], [place], [address], 01/08/2025 09:07:33 01/03/2001/08/2025 GI PROFI LE, STOOL , PCR plesiomonas shigelloides COMMEN T Test not perfo rmed. Consi stenc y of stool speci men too solid for sidra sis. This is a corre cted repor t. The previ ously repor terra resul t was: ===== ===Te st=== ===== ===== Resul t==== ===== ==Uni ts=== ====D ate Resul terra= Test not perfo rmed. The requi red speci men for the test order ed was not recei lorenzo. Not Available [facility] ([facility]) [address] [place], [address], 01/08/2025 09:07:33 01/03/2001/08/2025 GI PROFI LE, STOOL , PCR salmonella COMMEN T Test not perfo rmed. Consi stenc y of stool speci men too solid for sidra sis. This is a corre cted repor t. The previ ously repor terra resul t was: ===== ===Te st=== ===== ===== Resul t==== ===== ==Uni ts=== ====D ate Resul terra= Test not perfo rmed. The requi red speci men for the test order ed was not recei lorenzo. Not Available [facility] ([facility]) [address] [place], [address], 01/08/2025 09:07:33 01/03/2001/08/2025 GI PROFI LE, STOOL , PCR vibrio COMMEN T Test not perfo rmed. Consi stenc y of stool speci men too solid for sidra sis. This is a corre cted repor t. The previ ously repor terra resul t was: ===== ===Te st=== ===== ===== Resul t==== ===== ==Uni ts=== ====D ate Resul terra= Test not perfo rmed. The requi red speci men for the test order ed was not recei lorenzo. Not Available [facility] ([facility]) [address] [place], [address], 01/08/2025 09:07:33 01/03/2001/08/2025 GI PROFI LE, STOOL , PCR vibrio cholerae COMMEN T Test not perfo rmed. Consi stenc y of stool speci men too solid for sidra sis. This is a corre cted repor t. The previ ously repor terra resul t was: ===== ===Te st=== ===== ===== Resul t==== ===== ==Uni ts=== ====D ate Resul terra= Test not perfo rmed. The requi red speci men for the test order ed was not recei lorenzo. Not Available [facility] ([facility]) [address] [place], [address], 01/08/2025 09:07:33 01/03/2001/08/2025 GI PROFI LE, STOOL , PCR yersinia enterocoliti ca COMMEN T Test not perfo rmed. Consi stenc y of stool speci men too solid for sidra sis. This is a corre cted repor t. The previ ously repor terra resul t was: ===== ===Te st=== ===== ===== Resul t==== ===== ==Uni ts=== ====D ate Resul terra= Test not perfo rmed. The requi red speci men for the test order ed was not recei lorenzo. Not Available [facility] ([facility]) [address] [place], [address], 01/08/2025 09:07:33 01/03/2001/08/2025 GI PROFI LE, STOOL , PCR enteroaggreg ative E coli COMMEN T Test not perfo rmed. Consi stenc y of stool speci men too solid for sidra sis. This is a corre cted repor t. The previ ously repor terra resul t was: ===== ===Te st=== ===== ===== Resul t==== ===== ==Uni ts=== ====D ate Resul terra= Test not perfo rmed. The requi red speci men for the test order ed was not recei lorenzo. Not Available [facility] ([facility]) [address], [place], [address], 01/08/2025 09:07:33 01/03/2001/08/2025 GI PROFI LE, STOOL , PCR enteropathog enic E coli COMMEN T Test not perfo rmed. Consi stenc y of stool speci men too solid for sidra sis. This is a corre cted repor t. The previ ously repor terra resul t was: ===== ===Te st=== ===== ===== Resul t==== ===== ==Uni ts=== ====D ate Resul terra= Test not perfo rmed. The requi red speci men for the test order ed was not recei lorenzo. Not Available [facility] ([facility]) [address], [place], [address], 01/08/2025 09:07:33 01/03/2001/08/2025 GI PROFI LE, STOOL , PCR enterotoxige sue E coli COMMEN T Test not perfo rmed. Consi stenc y of stool speci men too solid for sidra sis. This is a corre cted repor t. The previ ously repor terra resul t was: ===== ===Te st=== ===== ===== Resul t==== ===== ==Uni ts=== ====D ate Resul terra= Test not perfo rmed. The requi red speci men for the test order ed was not recei lorenzo. Not Available [facility] ([facility]) [address], [place], [address], 01/08/2025 09:07:33 01/03/2001/08/2025 GI PROFI LE, STOOL , PCR shiga-toxin- producing E coli COMMEN T Test not perfo rmed. Consi stenc y of stool speci men too solid for sidra sis. This is a corre cted repor t. The previ ously repor terra resul t was: ===== ===Te st=== ===== ===== Resul t==== ===== ==Uni ts=== ====D ate Resul terra= Test not perfo rmed. The requi red speci men for the test order ed was not recei lorenzo. Not Available [facility] ([facility]) [address] [place], [address], 01/08/2025 09:07:33 01/03/2001/08/2025 GI PROFI LE, STOOL , PCR E coli O157 COMMEN T Test not perfo rmed. Consi stenc y of stool speci men too solid for sidra sis. This is a corre cted repor t. The previ ously repor terra resul t was: ===== ===Te st=== ===== ===== Resul t==== ===== ==Uni ts=== ====D ate Resul terra= Test not perfo rmed. The requi red speci men for the test order ed was not recei lorenzo. Not Available [facility] ([facility]) [address] [place], [address], 01/08/2025 09:07:33 01/03/2001/08/2025 GI PROFI LE, STOOL , PCR shigella/ent eroinvasive E coli COMMEN T Test not perfo rmed. Consi stenc y of stool speci men too solid for sidra sis. This is a corre cted repor t. The previ ously repor terra resul t was: ===== ===Te st=== ===== ===== Resul t==== ===== ==Uni ts=== ====D ate Resul terra= Test not perfo rmed. The requi red speci men for the test order ed was not recei lorenzo. Not Available [facility] ([facility]) [address] [place], [address], 01/08/2025 09:07:33 01/03/2001/08/2025 GI PROFI LE, STOOL , PCR cryptosporid ium COMMEN T Test not perfo rmed. Consi stenc y of stool speci men too solid for sidra sis. This is a corre cted repor t. The previ ously repor terra resul t was: ===== ===Te st=== ===== ===== Resul t==== ===== ==Uni ts=== ====D ate Resul terra= Test not perfo rmed. The requi red speci men for the test order ed was not recei lorenzo. Not Available [facility] ([facility]) [address] [place], [address], 01/08/2025 09:07:33 01/03/2001/08/2025 GI PROFI LE, STOOL , PCR cyclospora cayetanensis COMMEN T Test not perfo rmed. Consi stenc y of stool speci men too solid for sidra sis. This is a corre cted repor t. The previ ously repor terra resul t was: ===== ===Te st=== ===== ===== Resul t==== ===== ==Uni ts=== ====D ate Resul terra= Test not perfo rmed. The requi red speci men for the test order ed was not recei lorenzo. Not Available [facility] ([facility]) [address] [place], [address], 01/08/2025 09:07:33 01/03/2001/08/2025 GI PROFI LE, STOOL , PCR entamoeba histolytica COMMEN T Test not perfo rmed. Consi stenc y of stool speci men too solid for sidra sis. This is a corre cted repor t. The previ ously repor terra resul t was: ===== ===Te st=== ===== ===== Resul t==== ===== ==Uni ts=== ====D ate Resul terra= Test not perfo rmed. The requi red speci men for the test order ed was not recei lorenzo. Not Available [facility] ([facility]) [address] [place], [address], 01/08/2025 09:07:33 01/03/2001/08/2025 GI PROFI LE, STOOL , PCR giardia lamblia COMMEN T Test not perfo rmed. Consi stenc y of stool speci men too solid for sidra sis. This is a corre cted repor t. The previ ously repor terra resul t was: ===== ===Te st=== ===== ===== Resul t==== ===== ==Uni ts=== ====D ate Resul terra= Test not perfo rmed. The requi red speci men for the test order ed was not recei lorenzo. Not Available [facility] ([facility]) [address] [place], [address], 01/08/2025 09:07:33 01/03/2001/08/2025 GI PROFI LE, STOOL , PCR adenovirus F 40/41 COMMEN T Test not perfo rmed. Consi stenc y of stool speci men too solid for sidra sis. This is a corre cted repor t. The previ ously repor terra resul t was: ===== ===Te st=== ===== ===== Resul t==== ===== ==Uni ts=== ====D ate Resul terra= Test not perfo rmed. The requi red speci men for the test order ed was not recei lorenzo. Not Available [facility] ([facility]) [address] [place], [address], 01/08/2025 09:07:33 01/03/2001/08/2025 GI PROFI LE, STOOL , PCR astrovirus COMMEN T Test not perfo rmed. Consi stenc y of stool speci men too solid for sidra sis. This is a corre cted repor t. The previ ously repor terra resul t was: ===== ===Te st=== ===== ===== Resul t==== ===== ==Uni ts=== ====D ate Resul terra= Test not perfo rmed. The requi red speci men for the test order ed was not recei lorenzo. Not Available [facility] ([facility]) [address] [place], [address], 01/08/2025 09:07:33 01/03/2001/08/2025 GI PROFI LE, STOOL , PCR norovirus GI/gii COMMEN T Test not perfo rmed. Consi stenc y of stool speci men too solid for sidra sis. This is a corre cted repor t. The previ ously repor terra resul t was: ===== ===Te st=== ===== ===== Resul t==== ===== ==Uni ts=== ====D ate Resul terra= Test not perfo rmed. The requi red speci men for the test order ed was not recei lorenzo. Not Available [facility] ([facility]) [address] [place], [address], 01/08/2025 09:07:33 01/03/2001/08/2025 GI PROFI LE, STOOL , PCR rotavirus A COMMEN T Test not perfo rmed. Consi stenc y of stool speci men too solid for sidra sis. This is a corre cted repor t. The previ ously repor terra resul t was: ===== ===Te st=== ===== ===== Resul t==== ===== ==Uni ts=== ====D ate Resul terra= Test not perfo rmed. The requi red speci men for the test order ed was not recei lorenzo. Not Available [facility] ([facility]) [address], [place], [address], 01/08/2025 09:07:33 01/03/20 25 01/08/2025 GI PROFI LE, STOOL , PCR sapovirus COMMEN T Test not perfo rmed. Consi stenc y of stool speci men too solid for sidra sis. This is a corre cted repor t. The previ ously repor terra resul t was: ===== ===Te st=== ===== ===== Resul t==== ===== ==Uni ts=== ====D ate Resul terra= Test not perfo rmed. The requi red speci men for the test order ed was not recei lorenzo. Not Available [facility] ([facility]) [address], [place], [address], 01/08/2025 09:07:33 Result Notes None recorded. 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 14:25:21 Thyroid disorder screenin g Completed 201706/29/2017 Problem Code: V77.0; Problem Code Type: ICD-9; Not Available [facility] 21:20:36 Spasm of back muscles 342068735 Completed 201710/26/2017 Problem Code: M62.830; Problem Code Type: ICD-10; Not Available [facility] 21:20:31 Pain in thoracic spine 146269558 Completed 201710/26/2017 Problem Code: M54.89; Problem Code Type: ICD-10; Not Available [facility] 21:20:31 Spasm 96815949 Completed 201710/26/2017 Problem Code: 728.85; Problem Code Type: ICD-9; Not Available [facility] 21:20:37 Dehydrat ion 45976497 Completed 201810/23/2019 Problem Code: E86.0; Problem Code Type: ICD-10; Not Available [facility] 21:20:30 Diarrhea 71730712 Completed 201810/23/2019 Problem Code: R19.7; Problem Code Type: ICD-10; Rosalba Smith, KASIA [address] [place] [address], [address] , [employer] 5 14:41:32 Mixed hyperlip idemia 729084428 Active 2018 Problem Code: E78.2; Problem Code Type: ICD-10; Not Available [facility] 21:20:30 Abnormal weight loss 435342408 Completed 201810/23/2019 Problem Code: R63.4; Problem Code Type: ICD-10; Not Available [facility] 21:20:33 Verruca vulgaris 62840192 Completed 201810/23/2019 Problem Code: B07.9; Problem Code Type: ICD-10; Not Available [facility] 21:20:30 Acute bronchit is 93168292 Completed 201810/23/2019 Problem Code: J20.9; Problem Code Type: ICD-10; Not Available [facility] 21:20:31 Cough 94635597 Completed 201810/23/2019 Problem Code: R05; Problem Code Type: ICD-10; Not Available [facility] 2 21:20:32 Function al urinary incontin ence 572324814 Active 2018 Problem Code: R39.81; Problem Code Type: ICD-10; Not Available [facility] 21:20:32 Localize d edema 568791424 Completed 201804/01/2022 Problem Code: R60.0; Problem Code Type: ICD-10; MILLA ayala, [employer] 14:25:21 Benign paroxysm al position al vertigo or nystagmu s 179128101 Completed 201910/23/2019 Not Available [facility] 2 21:20:30 Body mass index 25-29 - overweig ht 471418578 Completed 201910/23/2019 Problem Code: Z68.28; Problem Code Type: ICD-10; Rosalba Smith, [employer] [address] [place], [address] , [employer] 4 14:10:41 Chronic obstruct marge pulmonar y disease 54916276 Active 2019 Problem Code: J44.9; Problem Code Type: ICD-10; Not Available [facility] 2 21:20:31 General examinat ion of patient Active 2019 Not Available [facility] 21:20:36 Influenz a vaccine needed 08948461446 06 Completed 201910/21/2020 Problem Code: Z23; Problem Code Type: ICD-10; MILLA ayala, [employer] 2 14:25:21 Neoplasm of bone 922970450 Completed 201904/23/2020 Not Available [facility] 2 21:20:30 Chronic kidney disease stage 3 991129674 Active 2019 Problem Code: N18.30; Problem Code Type: ICD-10; Not Available [facility] 2 21:20:31 Influenz a vaccine needed 00781619045 06 Completed 201910/21/2020 Problem Code: Z23; Problem Code Type: ICD-10; MILLA PLEITEZCORNELIO ayala, [employer] 2 14:25:21 Vitamin D deficien cy 50598211 Active 2020 Problem Code: E55.9; Problem Code Type: ICD-10; Not Available [facility] 2 21:20:30 History of malignan t neoplasm of prostate 357720636 Active 2020 Problem Code: Z85.46; Problem Code Type: ICD-10; Not Available [facility] 2 21:20:35 Influenz a vaccine needed 15460198130 Completed 202004/01/2022 Problem Code: Z23; Problem Code Type: ICD-10; MILLA PLEITEZCORNELIO ayala, [employer] 2 14:25:21 Irritabl e bowel syndrome with diarrhea 912754353 Completed 202004/01/2022 Problem Code: K58.0; Problem Code Type: ICD-10; MILLA PLEITEZCORNELIO ayala, [employer] 2 14:25:21 Body mass index 30+ - obesity 751816316 Active 2020 Problem Code: Z68.30; Problem Code Type: ICD-10; Rosalba Smith APRN [address] [place], [address] , [employer] 5 11:11:53 Essentia l hyperten london 73671439 Active 2023 Rosalba Smith APRN [address] [place], [address] , [employer] 4 14:11:05 Acute diarrhea 480552880 Active 2024 DOMINGA WAYNEDEBORAH [address] [place], [place], [address] [place] [address] , [employer] 5 10:29:06 Diarrhea 28406663 Active 2024 Problem Code: R19.7; Problem Code Type: ICD-10; Rosalba Smith APRN [address] [place] [address], [address] [place] [address] , [employer] 5 14:41:31 Acute exacerba tion of chronic obstruct marge pulmonar y disease 180235708 Active 2024 Rosalba Smith APRN [address] [place] [address], [address] [place] [address] , [employer] 5 16:31:46 Irritabl e bowel syndrome characte rized by alternat ing bowel habit 917440815 Active 2024 Rosalba Smith APRN [address] [place] [address], [address] [place] [address] , [employer] 5 16:32:09 Padilla hematuri a 300019967 Active 2024 Rosalba Smith APRN [address] [place] [address], [address] [place] [address] , [employer] 5 14:06:42 Complex renal cyst 439088006 Active 2024 Rosalba Smith APRN [address] [place] [address], [address] [place] [address] , [employer] 5 14:07:16 Notes:*Problem Name: Encount er for general adult medical examination *ICD-10 Codes: Z00.00 *Problem Status: Chronic *Comments: [id number]: 'Z00.0'; *Problem Code: Z00.0 *Problem Code Type: ICD-10 *Note Date: 01/21/2021 Problem Notes None recorded. Medical Equipment None Reported. Allergies No known drug allergies Medications Name Sig Start Date Stop Date Status Note LastModified by Organization Details LastModified Time promethazin e-DM 6.25 mg-15 mg/5 mL oral syrup Take 5 mL every 6 hours by oral route as needed. 05/17 completed Not Available Not Available Not Available ipratropium 0.5 mg-albutero l 3 mg (2.5 mg base)/3 mL nebulizatio n soln INHALE 1 VIAL VIA NEBULIZER 4 TIMES PER DAY active Not Available Not Available No t Available azithromyci n 250 mg tablet Take one tablet once daily on Wednesday, Wednesday , and Wednesday for COPD 10/18 completed Not Available Not Available Not Available tizanidine 4 mg tablet 1 po q hs 01/25 completed Not Available Not Available Not Available benzonatate 200 mg capsule Take 1 capsule 3 times a day by oral route as needed. 04/21 completed Not Available Not Available Not Available hydrocodone 5 mg-acetamin ophen 325 mg tablet Take 1 tablet every 6 hours by oral route as needed, for sciatica pain. 11/15 completed Not Available Not Available Not Available fluconazole 200 mg tablet TAKE ONE TAB BY MOUTH TODAY AND AGAIN IN 3 DAYS 07/20 completed Not Available Not Available Not Available ondansetron HCl 4 mg tablet Take 1 tab PO q6h prn nausea 10/22 completed Not Available Not Available Not Available prednisone 20 mg tablet TAKE 2 TABLETS BY MOUTH ONCE daily FOR 7 DAYS 01/17 completed Not Available Not Available Not Available sulfamethox azole 800 mg-trimetho prim 160 mg tablet Take 1 tablet(s) by mouth q12h for 14 days 04/21 completed Not Available Not Available Not Available triamcinolo ne acetonide 0.1 % topical cream APPLY THIN COAT TO AFFECTED AREA TWICE A DAY 02/20 completed Not Available Not Available Not Available ondansetron 8 mg disintegrat ing tablet Place 1 tablet twice a day by transling ual route as needed, for nausea. 11/15 completed Not Available Not Available Not Available ciclopirox 8 % topical solution APPLY TO THE AFFECTED AREA(S) TOPICALLY ONCE DAILY PREFERABL Y AT BEDTIME OR 8 HOURS BEFORE WASHING 02/20 completed Not Available Not Available Not Available tamsulosin 0.4 mg capsule TAKE ONE CAPSULE BY MOUTH EVERY EVENING active Not Available Not Available No t Available meclizine 25 mg tablet take 1 tablet (25 mg) by oral route 3 times per day as needed for dizziness 10/22 completed Not Available Not Available Not Available amlodipine 10 mg tablet TAKE 1 TABLET BY MOUTH EVERY DAY active Not Available Not Available No t Available doxycycline monohydrate 100 mg capsule Take 1 capsule twice a day by oral route with meal(s) for 10 days. 01/26 completed Not Available Not Available Not Available triamcinolo ne acetonide 40 mg/mL suspension for injection Take 1 mL by injection route. 07/22 completed Not Available Not Available Not Available prednisone 2.5 mg tablet Take one tablet by oral route once daily on Wednesday, Wednesday , and Wednesday for COPD 10/18 completed Not Available Not Available Not Available hyoscyamine sulfate 0.125 mg tablet TAKE 1 TABLET BY MOUTH 3 TIMES DAILY with a MEAL FOR stomach 2024 active Not Available Not Available Not Avai lable lisinopril 10 mg tablet Take 1 tablet(s) by mouth daily 07/08 completed Not Available Not Available Not Available gabapentin 300 mg capsule Take 1 capsule every day by oral route at bedtime for 10 days, for sciatica. 11/15 completed Not Available Not Available Not Available budesonide 0.25 mg/2 mL suspension for nebulizatio n inhale 1 vial via nebulizer twice a day. rinse mouth afterward s active Not Available Not Available No t Available budesonide 0.5 mg/2 mL suspension for nebulizatio n Take 2 mL by nebulizat ion 2 (Two) Times a Day. active Not Available Not Available No t Available doxazosin 4 mg tablet TAKE 1 TABLET BY MOUTH EVERY DAY active Not Available Not Available No t Available furosemide 20 mg tablet TAKE 1 TABLET BY MOUTH in THE morning ON wednesday AND active Not Available Not Available No t Available ergocalcife rol (vitamin D2) 1,250 mcg (50,000 unit) capsule TAKE 1 CAPSULE BY MOUTH ONE TIME PER WEEK 02/20 completed Not Available Not Available Not Available methylpredn isolone 4 mg tablets in a dose pack take as directed ON pack 11/28 completed Not Available Not Available Not Available albuterol sulfate HFA 90 mcg/actuati on aerosol inhaler INHALE TWO PUFFS BY MOUTH EVERY 4 HOURS NEEDED FOR WHEEZING active Not Available Not Available No t Available clotrimazol e 1 % topical cream APPLY TO AFFECTED AREA TWICE A DAY IN THE MORNING AND IN THE EVENING 07/20 completed Not Available Not Available Not Available arformotero l 15 mcg/2 mL solution for nebulizatio n INHALE ONE ampule via nebulizer TWICE DAILY. active Not Available Not Available No t Available Symbicort 160 mcg-4.5 mcg/actuati on HFA aerosol inhaler inhale 2 puffs by inhalatio n route 2 times per day in the morning and evening and rinse mouth after use 10/20 completed Not Available Not Available Not Available Combivent Respimat 20 mcg-100 mcg/actuati on solution for inhalation PLEASE SEE ATTACHED FOR DETAILED DIRECTION S 10/18 completed Not Available Not Available Not Available Probiotic 20 billion cell capsule Take 1 capsule every day by oral route for 14 days. 01/05 completed Not Available Not Available Not Available guaifenesin ER 600 mg tablet, extended release 12 hr Take 1 tablet every 12 hours by oral route. 03/10 completed Not Available Not Available Not Available Lactobacill us acidophilus 500 million cell capsule TAKE 1 CAPSULE BY MOUTH EVERY DAY FOR FOURTEEN DAYS active Not Available Not Available No t Available Shingrix (PF) 50 mcg/0.5 mL intramuscul ar suspension, kit inject 0.5 millilite r (50 mcg) by intramusc ular route once 01/21 completed Not Available Not Available Not Available Yupelri 175 mcg/3 mL solution for nebulizatio n Take 3 mL by nebulizat ion Daily. active Not Available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
--- OUTSIDE RECORDS SUMMARY | 2025-02-27 14:05 | XMS_ITS | Continuity of Care Document ---
Author Organization [place] [facility] Address [address] [place] [id number] Assessment Encounter Date Assessment Date Assessment LastModified by Organization Details LastModified Time 01/17/2025 01/17/2025 Hematuria Assessment: Patient reported padilla hematuria yesterday with left flank pain, both of which have since resolved. Given his history of prostate cancer, multiple renal cysts (largest measuring 8 cm in 2022), and known kidney stones, the etiology of the hematuria is concerning. The lack of significant pain is atypical for kidney stones, raising suspicion for other causes such as cyst complications or malignancy. Last imaging was in 2022, and chronic kidney disease complicates the use of contrast for updated imaging. Plan: - Urology consultation recommended - Consider non-contrast imaging of the kidneys - Patient to monitor for recurrence of hematuria or flank pain - Follow up after urology consultation and/or imaging results Not available 01/17/2025 17:22:06 Plan of Treatment Reminders Order Date Submit Date Provider Last Modified By Organization Details Last Modified Time Details Appointments None recorded. Lab urinalysis , dipstick 2024 025 [facility], [address] [place] [address], [place], [address], 14:39:19 Referral urologist referral - first available appt 2024 025 max Fernandez MD (Billy), [address], [place], [address], 09:01:29 Procedures None recorded. Surgeries None recorded. Imaging None recorded. Medication Orders None recorded. Patient TargetsNo targets recorded. Patient InstructionsNo instructions recorded. Reason for Referral Urologist Referral for Padilla hematuria first available appt Referring Physician: Rosalba Smith, Family Medicine, Encounter Date: 01/17/2025 Results Created Date Observation Date Name Description [...] REPOR T SENT 2024 Not Available [facility] ([facility]) [address] [facility], [place], [address], 01/08/2025 09:07:33 01/03/2001/08/2025 GI PROFI LE, STOOL [...] was not recei lorenzo. Not Available [facility] ([facility]) [address] [facility], [place], [address], 01/08/2025 09:07:33 01/03/2001/08/2025 GI PROFI LE, STOOL [...] was not recei lorenzo. Not Available [facility] ([facility]) [address] [place], [address], 01/08/2025 09:07:33 01/03/2001/08/2025 GI PROFI LE, STOOL [...] was not recei lorenzo. Not Available [facility] ([facility]) [address] [place], [address], 01/08/2025 09:07:33 01/03/2001/08/2025 GI PROFI LE, STOOL [...] was not recei lorenzo. Not Available [facility] ([facility]) [address] [place], [address], 01/08/2025 09:07:33 01/03/2001/08/2025 GI PROFI LE, STOOL [...] was not recei lorenzo. Not Available [facility] ([facility]) [address] [facility], [place], [address], 01/08/2025 09:07:33 01/03/2001/08/2025 GI PROFI LE, STOOL [...] was not recei lorenzo. Not Available [facility] ([facility]) [address] [facility], [place], [address], 01/08/2025 09:07:33 01/03/2001/08/2025 GI PROFI LE, STOOL [...] ed was not recei lorenzo. Not Available [facility] ([facility]) [address] [place], [address], 01/08/2025 09:07:33 01/03/2001/08/2025 GI PROFI LE, STOOL [...] was not recei lorenzo. Not Available [facility] ([facility]) [address] [place], [address], 01/08/2025 09:07:33 01/03/2001/08/2025 GI PROFI LE, STOOL [...] was not recei lorenzo. Not Available [facility] ([facility]) [address] [place], [address], 01/08/2025 09:07:33 01/03/2001/08/2025 GI PROFI LE, STOOL [...] was not recei lorenzo. Not Available [facility] ([facility]) [address] [facility], [place], [address], 01/08/2025 09:07:33 01/03/2001/08/2025 GI PROFI LE, STOOL [...] was not recei lorenzo. Not Available [facility] ([facility]) [address] [facility], [place], [address], 01/08/2025 09:07:33 01/03/2001/08/2025 GI PROFI LE, STOOL [...] was not recei lorenzo. Not Available [facility] ([facility]) [address] [place], [address], 01/08/2025 09:07:33 01/03/2001/08/2025 GI PROFI LE, STOOL [...] was not recei lorenzo. Not Available [facility] ([facility]) [address] [place], [address], 01/08/2025 09:07:33 01/03/2001/08/2025 GI PROFI LE, STOOL [...] was not recei lorenzo. Not Available [facility] ([facility]) [address] [place], [address], 01/08/2025 09:07:33 01/03/2001/08/2025 GI PROFI LE, STOOL [...] was not recei lorenzo. Not Available [facility] ([facility]) [address] [place], [address], 01/08/2025 09:07:33 01/03/2001/08/2025 GI PROFI LE, STOOL [...] was not recei lorenzo. Not Available [facility] ([facility]) [address] [place], [address], 01/08/2025 09:07:33 01/03/2001/08/2025 GI PROFI LE, STOOL [...] was not recei lorenzo. Not Available [facility] ([facility]) [address] [place], [address], 01/08/2025 09:07:33 01/03/2001/08/2025 GI PROFI LE, STOOL [...] was not recei lorenzo. Not Available [facility] ([facility]) [address] [place], [address], 01/08/2025 09:07:33 01/03/2001/08/2025 GI PROFI LE, STOOL [...] was not recei lorenzo. Not Available [facility] ([facility]) [address] [place], [address], 01/08/2025 09:07:33 01/03/2001/08/2025 GI PROFI LE, STOOL [...] was not recei lorenzo. Not Available [facility] ([facility]) [address] [place], [address], 01/08/2025 09:07:33 01/03/2001/08/2025 GI PROFI LE, STOOL , PCR sapovirus [...] was not recei lorenzo. Not Available [facility] ([facility]) [address] [facility], [place], [address], 01/08/2025 09:07:33 01/03/2001/04/[address] PROBL EM request problem COMMEN T Test not perfo rmed. The requi red speci men for the test order ed was not recei lorenzo. TEST: [id number] GI Profi le, Stool , PCR Not Available [facility] ([facility]) [address] [place], [address], 01/04/2025 10:08:47 01/18/2001/17/2025 urina lysis , dipst ick Leukocytes Negati ve Not Available [address], [address], 01/17/2025 13:51:56 01/18/2001/17/2025 urina lysis , dipst ick Nitrite negati ve Not Available [address], [address], 01/17/2025 13:51:56 01/18/20 25 01/17/2025 urina lysis , dipst ick Urobilinogen .2 Not Available [address], [address], 01/17/2025 13:51:56 01/18/2001/17/2025 urina lysis , dipst ick Protein 30 Not Available [address], [address], 01/17/2025 13:51:56 01/18/2001/17/2025 urina lysis , dipst ick pH 6.0 Not Available [address], [address], 01/17/2025 13:51:56 01/18/2001/17/2025 urina lysis , dipst ick Blood Negati ve Not Available [address], [address], 01/17/2025 13:51:56 01/18/2001/17/2025 urina lysis , dipst ick Specific [place] 1.020 Not Available [address], [address], 01/17/2025 13:51:56 01/18/2001/17/2025 urina lysis , dipst ick Ketone Negati ve Not Available [address], [address], 01/17/2025 13:51:56 01/18/20 25 01/17/2025 urina lysis , dipst ick Bilirubin Negati ve Not Available [address], [address], 01/17/2025 13:51:56 01/18/2001/17/2025 urina lysis , dipst ick Glucose Negati ve Not Available [address], [address], 01/17/2025 13:51:56 01/18/20 25 01/17/2025 urina lysis , dipst ick Appearance Clear Not Available [address], [address], 01/17/2025 13:51:56 01/18/2001/17/2025 urina lysis , dipst ick Color Yellow Not Available [address], [address], 01/17/2025 13:51:56 Result Notes None recorded. 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 14:25:21 Thyroid disorder screenin g Completed 201706/29/2017 Problem Code: V77.0; Problem Code Type: ICD-9; Not Available [facility] 21:20:36 Spasm of back muscles 677541011 Completed 201710/26/2017 Problem Code: M62.830; Problem Code Type: ICD-10; Not Available [facility] 21:20:31 Pain in thoracic spine 506554444 Completed 201710/26/2017 Problem Code: M54.89; Problem Code Type: ICD-10; Not Available [facility] 21:20:31 Spasm 88046654 Completed 201710/26/2017 Problem Code: 728.85; Problem Code Type: ICD-9; Not Available [facility] 21:20:37 Dehydrat ion 75938870 Completed 201810/23/2019 Problem Code: E86.0; Problem Code Type: ICD-10; Not Available [facility] 2 21:20:30 Diarrhea 51394382 Completed 201810/23/2019 Problem Code: R19.7; Problem Code Type: ICD-10; Rosalba Smith APRN [address] [place] [address], [address] , [employer] 5 14:41:32 Mixed hyperlip idemia 137016670 Active 2018 Problem Code: E78.2; Problem Code Type: ICD-10; Not Available [facility] 21:20:30 Abnormal weight loss 129672763 Completed 201810/23/2019 Problem Code: R63.4; Problem Code Type: ICD-10; Not Available [facility] 2 21:20:33 Verruca vulgaris 48394119 Completed 201810/23/2019 Problem Code: B07.9; Problem Code Type: ICD-10; Not Available [facility] 2 21:20:30 Acute bronchit is 02143457 Completed 201810/23/2019 Problem Code: J20.9; Problem Code Type: ICD-10; Not Available [facility] 2 21:20:31 Cough 21362528 Completed 201810/23/2019 Problem Code: R05; Problem Code Type: ICD-10; Not Available [facility] 2 21:20:32 Function al urinary incontin ence 159704908 Active 2018 Problem Code: R39.81; Problem Code Type: ICD-10; Not Available [facility] 2 21:20:32 Localize d edema 304981373 Completed 201804/01/2022 Problem Code: R60.0; Problem Code Type: ICD-10; MILLA ayala, [employer] 2 14:25:21 Benign paroxysm al position al vertigo or nystagmu s 997553388 Completed 201910/23/2019 Not Available [facility] 2 21:20:30 Body mass index 25-29 - overweig ht 935625524 Completed 201910/23/2019 Problem Code: Z68.28; Problem Code Type: ICD-10; Rosalba Smith, KASIA [address] [place], [address] , [employer] 4 14:10:41 Chronic obstruct marge pulmonar y disease 84454233 Active 2019 Problem Code: J44.9; Problem Code Type: ICD-10; Not Available [facility] 2 21:20:31 General examinat ion of patient Active 2019 Not Available [facility] 21:20:36 Influenz a vaccine needed 97634791174 Completed 201910/21/2020 Problem Code: Z23; Problem Code Type: ICD-10; MILLA ayala, [employer]. 14:25:21 Neoplasm of bone 931692964 Completed 201904/23/2020 Not Available [facility] 21:20:30 Chronic kidney disease stage 3 109151934 Active 2019 Problem Code: N18.30; Problem Code Type: ICD-10; Not Available [facility] 21:20:31 Influenz a vaccine needed 83848157471 Completed 201910/21/2020 Problem Code: Z23; Problem Code Type: ICD-10; MILLA ayala, [employer]. 14:25:21 Vitamin D deficien cy 79190106 Active 2020 Problem Code: E55.9; Problem Code Type: ICD-10; Not Available [facility] 21:20:30 History of malignan t neoplasm of prostate 811450349 Active 2020 Problem Code: Z85.46; Problem Code Type: ICD-10; Not Available [facility] 21:20:35 Influenz a vaccine needed 99786997187 Completed 202004/01/2022 Problem Code: Z23; Problem Code Type: ICD-10; MILLA WHITT null, [employer] 14:25:21 Irritabl e bowel syndrome with diarrhea 854103654 Completed 202004/01/2022 Problem Code: K58.0; Problem Code Type: ICD-10; MILLA WHITT null, [employer] 14:25:21 Body mass index 30+ - obesity 448316248 Active 2020 Problem Code: Z68.30; Problem Code Type: ICD-10; Rosalba Smith, KASIA [address] [place] [address], [address] , [employer] 5 11:11:53 Essentia l hyperten l[place] 27498507 Active 2023 Rosalba Smith APRN [address] [place] [address], [address] , [employer] 4 14:11:05 Acute diarrhea 835229243 Active 2024 DOMINGA WAYNEDEBORAH [address] [place] [address], [address] [place] [address] , [employer] 5 10:29:06 Diarrhea 18681275 Active 2024 Problem Code: R19.7; Problem Code Type: ICD-10; Rosalba Smith APRN [address] [place] [address], [address] [place] [address] , [employer] 5 14:41:31 Acute exacerba tion of chronic obstruct marge pulmonar y disease 434388350 Active 2024 Rosalba Smith APRN [address] [place] [address], [address] [place] [address] , [employer] 5 16:31:46 Irritabl e bowel syndrome characte rized by alternat ing bowel habit 555570834 Active 2024 Rosalba Smith APRN [address] [place] [address], [address] [place] [address] , [employer] 5 16:32:09 Padilla hematuri a 787227144 Active 2024 Rosalba Smith APRN [address] [place] [address], [address] , [employer] 5 14:06:42 Complex renal cyst 285506154 Active 2024 Rosalba Smith APRN [address] [place] [address], [address] , [employer] 5 14:07:16 Notes:*Problem Name: Encount er for general adult medical examination *ICD-10 Codes: Z00.00 *Problem Status: Chronic *Comments: [id number]: 'Z00.0'; *Problem Code: Z00.0 *Problem Code Type: [...] Not Available Not Available No t Available [employer] Aerosphere 160 mcg-9mcg-4. 8mcg/actuat ion HFA aerosol inhaler Inhale 2 puffs twice a day by inhalatio n route. 10/18 completed Not Available Not Available Not Available Vitals Date Recorded Body height Body mass index (BMI) Body weight Body temperature Heart rate Oxygen saturation Oxygen saturation in Arterial blood by Pulse oximetry Systolic And Diastolic Systolic And Diastolic Provider Name and Address Organization Details Last Updated DateTime 5 175.26 cm 30.9 kg/m2 98870.8 1 g 98.4 [degF] 73 /min 91 % 91 % 93/53 mm[Hg] 133/69 mm[Hg] MILLA [employer] 5 14:01:57 Social History Question Answer Notes LastModified by Organizat ion Details LastModified Time Tobacco Smoking Status Former Smoker SocialHis toryQuest ion: 'Tobacco/ Alcohol/S upplement s'; SocialHis toryRespo nse: 'Former Smoker'; Not Available [facility] 12/30/2021 22:56:51 Do You Have An Advance [...] Do You Have A Medical Power Of Toll Mechanic? No Information not available 02/20/2022 What Was The Date Of Your Most Recent Tobacco Screening? 01/17/2025 Information not available 01/17/2025 What Is Your Current Pack Years? 30ormorepac parveens Information not available 10/19/2023 What Is Your [...] PF 3 completed Rosalba Smith, KASIA [address] [place], [address], [facility] [employer] 02/10/2023 17:49:28 RSV, recombinant, protein subunit RSVpreF, adjuvant reconstituted, 0.5 mL, PF 3 completed Mare ayala, [employer] 03/24/2023 09:54:27 COVID-19, mRNA, LNP-S, PF, lucero-sucrose, 30 mcg/0.3 mL 3 completed MILLA ayala, [employer] 04/02/2023 14:22:10 COVID-19, mRNA, LNP-S, PF, 100 mcg/0.5mL dose or 50 mcg/0.25mL dose 1 completed MILLA WHITT null, [employer] 07/20/2022 14:13:55 COVID-19, mRNA, LNP-S, PF, 100 mcg/0.5mL dose or 50 mcg/0.25mL dose 1 completed MILLA WHITT [employer], [employer] 07/20/2022 14:13:55 Influenza, split virus, quadrivalent, preservative 8 completed Not Available [facility] 12/30/2021 23:30:12 Influenza, split virus, quadrivalent, PF 1 completed Not Available [facility] 12/30/2021 23:30:12 zoster recombinant 1 completed Not Available [facility] 12/30/2021 23:30:12 zoster recombinant 0 completed Not Available [facility] 12/30/2021 23:30:12 Influenza, high-dose, trivalent, PF 4 completed Mare ayala, [employer] 02/08/2024 13:35:26 COVID-19, mRNA, LNP-S, PF, lucero-sucrose, 30 mcg/0.3 mL 4 completed Soo Cervantes, DEBORAH [address] [place] [address], [address], [employer] 03/08/2024 15:52:31 Influenza, split virus, quadrivalent, preservative 2 completed Not Available [facility] 03/24/2023 09:42:42 COVID-19, mRNA, LNP-S, bivalent, PF, 30 mcg/0.3 mL dose 2 completed Not Available [facility] 03/24/2023 09:42:42 Influenza, high-dose, quadrivalent, PF 0 completed MILLA MYNEAR null, [employer] 07/20/2022 14:13:55 COVID-19, mRNA, LNP-S, PF, 100 mcg/0.5mL dose or 50 mcg/0.25mL dose 2 completed MILLA MYNEAR null, [employer] 07/20/2022 14:13:55 COVID-19, mRNA, LNP-S, PF, 100 mcg/0.5mL dose or 50 mcg/0.25mL dose 1 completed MILLA MYNEAR null, [employer] 07/20/2022 14:13:55 COVID-19, mRNA, LNP-S, bivalent, PF, 50 mcg/0.5 mL or 25mcg/0.25 mL dose 2 completed MILLA MYNEAR null, [employer] 07/20/2022 14:13:55 Influenza, split virus, quadrivalent, PF 2 completed MILLA MYNEAR null, [employer] 07/20/2022 14:13:55 Influenza, split virus, trivalent, PF 5 completed MILLA MYNEAR null, [employer] 02/19/2025 11:48:38 Pneumococcal conjugate PCV20, polysaccharide VCQ265 conjugate, adjuvant, PF 4 completed Not Available [facility] 02/19/2025 11:31:46 Past Encounters Encounter ID Performer Location Encounter Start Date Encounter Closed Date Diagnosis/Indication Diagnosis SNOMED-CT Code Diagnosis ICD10 Code Diagnosis IMO Codes Diagnosis Note [id number] Rosalba Smith APRN [address] [address] 01/01/2025 14:19:31 01/01/2025 14:55:36 Diarrhea 67823408 R19.7 [id number] Rah Robbins, male patient with history of [...] (personal preference for patients 65 and over) [id number] Rosalba Smith APRN [address] [address] 01/09/2025 15:47:29 01/10/2025 08:33:32 Acute exacerbation of chronic obstructive pulmonary disease 083741984 J44.1 966725 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 [id number] Rosalba Smith APRN [address] [address] 01/17/2025 13:38:45 01/17/2025 14:59:17 Padilla hematuria 109635350 R31.0 [id number] UA NEG today. History of malignant neoplasm of prostate 322966564 Z85.46 8857552 Complex renal cyst 87155 1001 N28.1 736367 Health Concerns Section Related Observation LastModified by Organization Detai ls LastModified Time None Recorded Concern Status LastModified by Organization Details LastModified Time None Recorded Payers Encounter Date Sequence Insurance Name Policy Number Policy Loco Covered Member ID Loco Member ID Guarantor Name 01/17/2025 1 [facility] (MEDICARE REPLACEMENT/A DVANTAGE - PPO) [id number] Rah Robbins [id number] Rah Robbins Notes Date Note Type Note Provider Name and Address Organization Details Recorded Time 01/17/2025 text/html ROS as noted in the HPI History of Present IllnessRah Robbins presents with hematuria that began yesterday, prompting him to make an appointment. The patient experienced left flank pain accompanying the blood in urine yesterday, but both the hematuria and flank pain resolved later in the day and have not recurred as of this morning.The patient has a significant urological history including previous prostate cancer treated with radiation therapy, multiple renal cysts with one measuring 8 centimeters, and three kidney stones in the affected kidney. The last imaging was performed in 2022. He expresses concern about the brief episode of padilla hematuria given his complex medical history, particularly noting that the minimal pain associated with this episode does not match what he would expect from his known kidney stones.The patient has chronic kidney disease which complicates potential imaging with contrast dye. He is followed by Nephrology at . Rosalba Smith APRN [address] [facility], [place], [address], [facility] - [employer] [facility] 01/17/2025 17:22:26
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
--- OUTSIDE RECORDS SUMMARY | 2025-02-27 14:05 | XMS_ITS | Continuity of Care Document ---
Author Organization [place] - [employer] [facility] Address [address] [place] [address] Assessment Encounter Date Assessment Date Assessment LastModified by Organization Details LastModified Time 01/09/2025 01/09/2025 Rah Robbins, male patient with history of COPD, presents with cough for 1-2 weeks, increased wheezing, shortness of breath, and frequent bowel movements for approximately 6 years. COPD Exacerbation Assessment: Patient presents with a 1-2 week history of cough, increased wheezing, and shortness of breath. 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 Patient reports coughing up sputum and experiencing a burning sensation in the top of his mouth. Oxygen saturation was noted to be 84% yesterday morning, improving to 91% after sitting. On examination, patient demonstrates coarse breath sounds and wheezing, which is worse than his baseline. Given the patient's history of COPD and current symptoms, this presentation is consistent with a COPD exacerbation triggered by a respiratory virus. Plan: - Initiate course of antibiotics (doxycycline) - Start oral corticosteroids - Continue current COPD management including nebulizers and inhalers - Maintain continuous oxygen therapy - Follow up with playground aide as scheduled Chronic Diarrhea Assessment: Patient reports a 6-year history of frequent bowel movements, occurring 3-7 times daily with a pretty good amount each time. Recent weight loss of 5 pounds in the past month noted, from 210 to 205 lbs. Patient denies abdominal pain but reports gas. Last colonoscopy was performed 5 years ago, which revealed diverticulosis. Patient has a history of a large renal cyst (6 cm) on the left kidney, last imaged by MRI in November 2022. Given the symptom pattern, irritable bowel syndrome (IBS) is a consideration. Plan: - Trial of hyoscyamine with meals for 1 week to address urgency and frequent bowel movements - Continue current fiber supplement (Konsyl) - Monitor weight - Reassess symptoms in 1 week - If symptoms persist, consider further workup including abdominal CT or referral to gastroenterology for colonoscopy Not available 01/09/2025 18:10:26 Plan of Treatment Reminders Order Date Submit Date Provider Last Modified By Organization Details Last Modified Time Details Appointments None recorded. Lab None recorded. Referral None recorded. Procedures None recorded. Surgeries None recorded. Imaging None recorded. Medication Orders doxycycline monohydrate 100 mg capsule 2024 025 [facility], [address] [place] [address], [address], 5 05:02:10 prednisone 20 mg tablet 2024 025 [facility], [address] [place] [address], [address], 5 14:10:38 hyoscyamine sulfate 0.125 mg tablet 2024 025 [facility], [address] [place] [address], [address], 5 16:58:16 Patient TargetsNo targets recorded. Patient InstructionsNo instructions [...] REPOR T SENT 2024 Not Available [facility] ([facility]) [address] [place], [address], 01/08/2025 09:07:33 01/03/2001/08/2025 GI PROFI LE, STOOL [...] was not recei lorenzo. Not Available [facility] ([facility]) [address] [facility], [place], [address], 01/08/2025 09:07:33 01/03/2001/08/2025 GI PROFI LE, STOOL [...] was not recei lorenzo. Not Available [facility] ([facility]) [address] [facility], [place], [address], 01/08/2025 09:07:33 01/03/2001/08/2025 GI PROFI LE, STOOL [...] was not recei lorenzo. Not Available [facility] ([facility]) [address] [place], [address], 01/08/2025 09:07:33 01/03/2001/08/2025 GI PROFI LE, STOOL [...] was not recei lorenzo. Not Available [facility] ([facility]) [address] [place], [address], 01/08/2025 09:07:33 01/03/2001/08/2025 GI PROFI LE, STOOL [...] was not recei lorenzo. Not Available [facility] ([facility]) [address] [place], [address], 01/08/2025 09:07:33 01/03/2001/08/2025 GI PROFI LE, STOOL [...] was not recei lorenzo. Not Available [facility] ([facility]) [address] [place], [address], 01/08/2025 09:07:33 01/03/2001/08/2025 GI PROFI LE, STOOL [...] was not recei lorenzo. Not Available [facility] ([facility]) [address] [facility], [place], [address], 01/08/2025 09:07:33 01/03/2001/08/2025 GI PROFI LE, STOOL [...] was not recei lorenzo. Not Available [facility] ([facility]) [address] [place], [address], 01/08/2025 09:07:33 01/03/2001/08/2025 GI PROFI LE, STOOL [...] was not recei lorenzo. Not Available [facility] ([facility] [address] [place], [address], 01/08/2025 09:07:33 01/03/2001/08/2025 GI PROFI LE, STOOL [...] was not recei lorenzo. Not Available [facility] ([facility]) [address] [place], [address], 01/08/2025 09:07:33 01/03/2001/08/2025 GI PROFI LE, STOOL [...] was not recei lorenzo. Not Available [facility] ([facility] [address] [place], [address], 01/08/2025 09:07:33 01/03/2001/08/2025 GI PROFI LE, STOOL [...] was not recei lorenzo. Not Available [facility] ([facility]) [address] [place], [address], 01/08/2025 09:07:33 01/03/2001/08/2025 GI PROFI LE, STOOL [...] was not recei lorenzo. Not Available [facility] ([facility]) [address] [place], [address], 01/08/2025 09:07:33 01/03/2001/08/2025 GI PROFI LE, STOOL [...] was not recei lorenzo. Not Available [facility] ([facility] [address] [place], [address], 01/08/2025 09:07:33 01/03/2001/08/2025 GI PROFI LE, STOOL [...] was not recei lorenzo. Not Available [facility] ([facility] [address] [facility], [place], [address], 01/08/2025 09:07:33 01/03/2001/08/2025 GI PROFI LE, STOOL [...] was not recei lorenzo. Not Available [facility] ([facility]) [address] [place], [address], 01/08/2025 09:07:33 01/03/2001/08/2025 GI PROFI LE, STOOL [...] was not recei lorenzo. Not Available [facility] ([facility] [address] [place], [address], 01/08/2025 09:07:33 01/03/2001/08/2025 GI PROFI LE, STOOL [...] was not recei lorenzo. Not Available [facility] ([facility]) [address] [place], [address], 01/08/2025 09:07:33 01/03/2001/08/2025 GI PROFI LE, STOOL [...] was not recei lorenzo. Not Available [facility] ([facility]) [address] [facility], [place], [address], 01/08/2025 09:07:33 01/03/2001/08/2025 GI PROFI LE, STOOL [...] was not recei lorenzo. Not Available [facility] ([facility]) [address] [facility], [place], [address], 01/08/2025 09:07:33 01/03/2001/08/2025 GI PROFI LE, STOOL [...] was not recei lorenzo. Not Available [facility] ([facility]) [address] [facility], [place], [address], 01/08/2025 09:07:33 01/03/20 25 01/04/[address] PROBL EM request problem COMMEN T Test not perfo rmed. The requi red speci men for the test order ed was not recei lorenzo. TEST: [id number] GI Profi le, Stool , PCR Not Available [facility] ([facility]) [address] [facility], [place], [address], 01/04/2025 10:08:47 Result Notes None recorded. 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 14:25:21 Thyroid disorder screenin g Completed 201706/29/2017 Problem Code: V77.0; Problem Code Type: ICD-9; Not Available [facility]20[facility]36 Spasm of back muscles 007952825 Completed 201710/26/2017 Problem Code: M62.830; Problem Code Type: ICD-10; Not Available [facility] 21:20:31 Pain in thoracic spine 928319474 Completed 201710/26/2017 Problem Code: M54.89; Problem Code Type: ICD-10; Not Available [facility] 21:20:31 Spasm 17424660 Completed 201710/26/2017 Problem Code: 728.85; Problem Code Type: ICD-9; Not Available [facility] 21:20:37 Dehydrat ion 76154926 Completed 201810/23/2019 Problem Code: E86.0; Problem Code Type: ICD-10; Not Available [facility] 21:20:30 Diarrhea 89316287 Completed 201810/23/2019 Problem Code: R19.7; Problem Code Type: ICD-10; Rosalba Smith, [employer]ARN TEXT[employer] MACHINE OPERATOR [address] [place] [address], [address] , [employer] 5 14:41:32 Mixed hyperlip idemia 888626388 Active 2018 Problem Code: E78.2; Problem Code Type: ICD-10; Not Available [facility] 21:20:30 Abnormal weight loss 773234245 Completed 201810/23/2019 Problem Code: R63.4; Problem Code Type: ICD-10; Not Available [facility] 21:20:33 Verruca vulgaris 93907088 Completed 201810/23/2019 Problem Code: B07.9; Problem Code Type: ICD-10; Not Available [facility] 09/05/202 2 21:20:30 Acute bronchit is 15911375 Completed 201810/23/2019 Problem Code: J20.9; Problem Code Type: ICD-10; Not Available [facility] 2 21:20:31 Cough 46439947 Completed 201810/23/2019 Problem Code: R05; Problem Code Type: ICD-10; Not Available [facility] 2 21:20:32 Function al urinary incontin ence 788669818 Active 2018 Problem Code: R39.81; Problem Code Type: ICD-10; Not Available [facility] 2 21:20:32 Localize d edema 738755394 Completed 201804/01/2022 Problem Code: R60.0; Problem Code Type: ICD-10; MILLA ayala, [employer] 14:25:21 Benign paroxysm al position al vertigo or nystagmu s 869413613 Completed 201910/23/2019 Not Available [facility] 2 21:20:30 Body mass index 25-29 - overweig ht 206237612 Completed 201910/23/2019 Problem Code: Z68.28; Problem Code Type: ICD-10; Rosalba Smith, YARN TEXTURING MACHINE OPERATOR [address] [place] [address], [address] , [employer] 4 14:10:41 Chronic obstruct marge pulmonar y disease 49390765 Active 2019 Problem Code: J44.9; Problem Code Type: ICD-10; Not Available [facility] 2 21:20:31 General examinat ion of patient Active 2019 Not Available [facility] 21:20:36 Influenz a vaccine needed 32956909767 06 Completed 201910/21/2020 Problem Code: Z23; Problem Code Type: ICD-10; MILLA ayala, [employer] 2 14:25:21 Neoplasm of bone 369757838 Completed 201904/23/2020 Not Available [facility] 2 21:20:30 Chronic kidney disease stage 3 456436489 Active 2019 Problem Code: N18.30; Problem Code Type: ICD-10; Not Available [facility] 2 21:20:31 Influenz a vaccine needed 24620264840 06 Completed 201910/21/2020 Problem Code: Z23; Problem Code Type: ICD-10; MILLA WHITT jamie, [employer] 2 14:25:21 Vitamin D deficien cy 45534383 Active 2020 Problem Code: E55.9; Problem Code Type: ICD-10; Not Available [facility] 21:20:30 History of malignan t neoplasm of prostate 235858090 Active 2020 Problem Code: Z85.46; Problem Code Type: ICD-10; Not Available [facility] 21:20:35 Influenz a vaccine needed 66072288710 Completed 202004/01/2022 Problem Code: Z23; Problem Code Type: ICD-10; MILLA PLEITEZCORNELIO null, [employer] 2 14:25:21 Irritabl e bowel syndrome with diarrhea 111956463 Completed 202004/01/2022 Problem Code: K58.0; Problem Code Type: ICD-10; MILLA PLEITEZCORNELIO null, [employer] 2 14:25:21 Body mass index 30+ - obesity 315110091 Active 2020 Problem Code: Z68.30; Problem Code Type: ICD-10; Rosalba Smith APRN [address] [place], [address] , [employer] 5 11:11:53 Essentia l hyperten london 48466482 Active 2023 Rosalba Smith APRN [address] [place], [address] , [employer] 4 14:11:05 Acute diarrhea 484868393 Active 2024 DOMINGA BLACKDEBORAH [address], [place], [address] [place] [address] , [employer] 5 10:29:06 Diarrhea 88191459 Active 2024 Problem Code: R19.7; Problem Code Type: ICD-10; Rosalba Smith APRN [address] [place] [address], [address] [place] [address] , [employer] 5 14:41:31 Acute exacerba tion of chronic obstruct marge pulmonar y disease 255541251 Active 2024 Rosalba Smith APRN [address] [place] [address], [address] [place] [address] , [employer] 5 16:31:46 Irritabl e bowel syndrome characte rized by alternat ing bowel habit 394523638 Active 2024 Rosalba Smith APRN [address] [place] [address], [address] [place] [address] , [employer] 5 16:32:09 Padilla hematuri a 027281865 Active 2024 Rosalba Smith APRN [address] [place] [address], [address] [place] [address] , [employer] 5 14:06:42 Complex renal cyst 510247541 Active 2024 Rosalba Smith APRN [address] [place] [address], [address] [place] [address] , [employer] 5 14:07:16 Notes:*Problem Name: Encount er for general adult medical examination *ICD-10 Codes: Z00.00 *Problem Status: Chronic *Comments: [id number]: 'Z00.0'; *Problem Code: Z00.0 *Problem Code Type: [...] Details Last Updated DateTime 5 175.26 cm 30.3 kg/m2 44324.4 4 g 97.8 [degF] 70 /min 85 % 85 % 129/64 mm[Hg] [facility]ill[facility] Ley [facility] [employer] 5 16:02:19 Social History Question Answer Notes LastModified by Organizat ion Details LastModified Time Tobacco Smoking Status Former Smoker SocialHis toryQuest ion: 'Tobacco/ Alcohol/S upplement s'; SocialHis toryRespo nse: 'Former Smoker'; Not Available [facility] 12/30/2021 22:56:51 Do You Have An Advance [...] Do You Have A Medical Power Of Retail Receiving Clerk? No Information not available 02/20/2022 What Was [...] high-dose, quadrivalent, PF 3 completed Rosalba Smith, YARN TEXTURING MACHINE OPERATOR [address] [place], [address], [employer] 02/10/2023 17:49:28 RSV, recombinant, protein subunit RSVpreF, adjuvant reconstituted, 0.5 mL, PF 3 completed Mare ayala, [employer] 03/24/2023 09:54:27 COVID-19, mRNA, LNP-S, PF, lucero-sucrose, 30 mcg/0.3 mL 3 completed MILLA ayala, [employer] 04/02/2023 14:22:10 COVID-19, mRNA, LNP-S, PF, 100 mcg/0.5mL dose or 50 mcg/0.25mL dose 1 completed MILLA PLEITEZNEAR null, [employer] 07/20/2022 14:13:55 COVID-19, mRNA, LNP-S, PF, 100 mcg/0.5mL dose or 50 mcg/0.25mL dose 1 completed MILLA PLEITEZNEAR null, [employer] 07/20/2022 14:13:55 Influenza, split virus, quadrivalent, preservative 8 completed Not Available [facility] 12/30/2021 23:30:12 Influenza, split virus, quadrivalent, PF 1 completed Not Available [facility] 12/30/2021 23:30:12 zoster recombinant 1 completed Not Available [facility] 12/30/2021 23:30:12 zoster recombinant 0 completed Not Available [facility] 12/30/2021 23:30:12 Influenza, high-dose, trivalent, PF 4 completed Mare Taveras null, [employer] 02/08/2024 13:35:26 COVID-19, mRNA, LNP-S, PF, lucero-sucrose, 30 mcg/0.3 mL 4 completed Soo Cervantes, DEBORAH [address] [place] [address], [address], [employer] 03/08/2024 15:52:31 Influenza, split virus, quadrivalent, preservative 2 completed Not Available [facility] 03/24/2023 09:42:42 COVID-19, mRNA, LNP-S, bivalent, PF, 30 mcg/0.3 mL dose 2 completed Not Available [facility] 03/24/2023 09:42:42 Influenza, high-dose, quadrivalent, PF 0 completed MILLA PLEITEZNEAR null, [employer] 07/20/2022 14:13:55 COVID-19, mRNA, LNP-S, PF, 100 mcg/0.5mL dose or 50 mcg/0.25mL dose 2 completed MILLA MYNEAR null, [employer] 07/20/2022 14:13:55 COVID-19, mRNA, LNP-S, PF, 100 mcg/0.5mL dose or 50 mcg/0.25mL dose 1 completed MILLA MYNEAR null, [employer] 07/20/2022 14:13:55 COVID-19, mRNA, LNP-S, bivalent, PF, 50 mcg/0.5 mL or 25mcg/0.25 mL dose 2 completed MILLA MYNEAR null, [employer] 07/20/2022 14:13:55 Influenza, split virus, quadrivalent, PF 2 completed MILLA MYNEAR null, [employer] 07/20/2022 14:13:55 Influenza, split virus, trivalent, PF 5 completed MILLA MYNEAR null, [employer] 02/19/2025 11:48:38 Pneumococcal conjugate PCV20, polysaccharide [id number] conjugate, adjuvant, PF 4 completed Not Available [facility] 02/19/2025 11:31:46 Past Encounters Encounter ID Performer Location Encounter Start Date Encounter Closed Date Diagnosis/Indication Diagnosis SNOMED-CT Code Diagnosis ICD10 Code Diagnosis IMO Codes Diagnosis Note [id number] DOMINGA BLACK NP [address] [address] 12/15/2024 09:53:29 12/18/2024 10:27:11 Acute diarrhea 312211131 R19.7 89830 Continue to hydrate, consider water, or oral [...] diarrhea. 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 Health Concerns Section Related Observation LastModified by Organization Detai ls LastModified Time None Recorded Concern Status LastModified by Organization Details LastModified Time None Recorded Payers Encounter Date Sequence Insurance Name Policy Number Policy Loco Covered Member ID Loco Member ID Guarantor Name 01/09/2025 1 [facility] (MEDICARE REPLACEMENT/A DVANTAGE - PPO) [id number] Rah Robbins [id number] Rah Robbins Notes Date Note Type Note Provider Name and Address Organization Details Recorded Time 01/09/2025 text/html ROS as noted in the HPI Chief ComplaintCough for 1-2 weeks, shortness of breath, wheezing, frequent bowel movements (3-7 times daily), unintentional weight loss (5 pounds in a month)History of Present IllnessRah Robbins, a patient with a history of COPD, presents with a cough that started approximately two weeks ago, accompanied by increased wheezing and shortness of breath. He also reports a change in bowel habits and unintentional weight loss.Mr. Robbins's cough began after he got chilled while working in a [employer] barn. He initially experienced a burning sensation in the top of his mouth, followed by the onset of cough a couple of days later. The cough is productive, and he is using Mucinex to manage it. He denies fever but reports increased wheezing and shortness of breath compared to his baseline COPD symptoms. Mr. Robbins is currently using his oxygen continuously and notes that his pulse oximeter reading was 84 yesterday morning, improving to 91 after sitting in a chair. He also mentions having an awful night and breathing through his mouth. His nose appears red, swollen, and inflamed with significant drainage.In addition to his respiratory symptoms, Mr. Robbins reports a change in his bowel habits. He has been experiencing increased frequency of bowel movements, sometimes 3, 5, or 7 times a day, for about six years. The stools are usually of a pretty good amount. He denies abdominal pain but mentions having gas. Mr. Robbins has lost 5 pounds in the past month, dropping from 210 to 205 pounds. He attributes this weight loss partly to reduced food intake due to fear of frequent bathroom visits after eating.Mr. Robbins continues to adhere to his COPD treatment regimen, including nebulizers and inhalers. He is still under the care of a playground aide and Dr. Jessica for his COPD management. He takes Konsyl for fiber supplementation, which was prescribed five years ago at his last colonoscopy. Mr. Robbins denies any leg swelling and reports no recent episodes of diverticulitis flare-ups or blood in his stool. Rosalba Smith, YARN TEXTURING MACHINE OPERATOR [address] [facility], [place], [address], [facility] [employer] 01/09/2025 18:11:03
--- OUTSIDE RECORDS SUMMARY | 2025-02-27 14:06 | XMS_ITS | Encounter Summary ---
Author Organization [facility] Address [address] [place] [address] Care Team Providers Care Director Of State Name Role Phone Rosalba Smith SUPER[employer]OR [employer] Primary Care Provider [phone] Reason for Visit * Reason Onset Date Comments Med Refill 01/01/2025 Encounter Details Date Type Department Care Team (Late st Contact Info) Description 01/01/2025 Refill [facility] [address] [place] [address] Manas Cardozo, [address] [place], [place] [id number] Social History Tobacco Use Types Packs/Day Years [...] Not on file Sexual Orientation Straight 10/30/2024 8: 30 AM EDT documented as of this encounter Miscellaneous Notes * Telephone Encounter - [place] MA - 01/01/2025 9:20 AM EDT Refilled Pulmicort Neb Laura and Yulperi Neb Laura per chart sent to [facility] per pharmacies request. documented in this encounter Plan of Treatment Not on file documented as of this encounter Visit Diagnoses Not on filedocumented in this encounter Care Teams Director Of State Relationship Specialty Start Date End Date Rosalba Smith APRN [address] [place] [address] PCP - General Nurse Practitioner 08/05/23 documented as of this encounter
--- OUTSIDE RECORDS SUMMARY | 2025-02-27 14:06 | XMS_ITS | Encounter Summary ---
Author Organization Healthcare Address [address] [place] [address] Care Team Providers Care Motorcoach Operator Name Role Phone Rosalba Smith PRECISION INSTRUMENT MAKER AND REPAIRER Primary Care Provider [phone] Reason for Referral * Consultation (Routine) - Closed Specialty Diagnoses / Procedures Referred By Kourtney hernandez Referred To Contact Nephrology Diagnoses Other specified disorders of kidney and ureter Rosalba Smith, PRECISION INSTRUMENT MAKER AND REPAIRER [address] [place] [address] Phone: tel: fax: Referral ID Status Reason Start Date Expiration Date V isits Requested Visits Authorized [id number] Closed Specialty Services Required 04/08/2022 10/08/2023 1 1 Encounter Details Date Type Department Care Team (Late st Contact Info) Description 04/08/2022 Community [facility] [address] [place] [address] Rosalba Smith, PRECISION INSTRUMENT MAKER AND REPAIRER [address] [place], [place] [id number] Other specified disorders of kidney and ureter (Primary Dx) Social History Tobacco Use Types Packs/Day Years Used Date Smoking Tobacco: Former Smokeless Tobacco: Never Sex and Gender Information Value Date Recorded Sex Assigned at Not on file Legal Sex Male 6:04 PM EDT Gender Identity Not on file Sexual Orientation Not on file documented as of this encounter Plan of Treatment Upcoming Encounters Date Type Department Care Team (Late st Contact Info) Description 06/29/2025 1:20 PM EST Office Visit [facility] [address] [place] [address] Calvin Carson MD [address] [place] [phone] Scheduled Referrals Name Type Priority Associated Diagnoses Order Schedule Ambulatory referral to Nephrology Outpatient Referral Routine Other specified disorders of kidney and ureter Expected: 04/08/2022 (Approximate), Expires: 10/08/2023 documented as of this encounter Visit Diagnoses Diagnosis Other specified disorders of kidney and ureter- Primary documented in this encounter Care Teams Motorcoach Operator Relationship Specialty Start Date End Date Rosalba Smith, PRECISION INSTRUMENT MAKER AND REPAIRER [address] [place] [address] PCP - General 09/06/20 documented as of this encounter
--- OUTSIDE RECORDS SUMMARY | 2025-02-27 14:06 | XMS_ITS | Data Portability ---
Author Organization [facility] Virgil barroso [facility] Address [address] [facility] [address] [place] [address] Care Team Providers Care It Applications Manager Name Role Phone JOE AKPLAN Primary Care Provider [phone] HOWIE SINGH Information Receptionist Assessment No assessment recorded. Plan of Treatment Reminders Order Date Submit Date Provider Last Modified By Organization Details Last Modified Time Details Appointments DERM ESTABLISH ED 2024 03:30P M HOWIE SINGH MD Not available Not available Not available Lab surgical pathology study 2024 025 [facility], [facility], [place], [address], 09/26/2024 09:59:40 Referral None recorded. Procedures None recorded. Surgeries None recorded. Imaging None recorded. Medication Orders None recorded. Patient TargetsNo targets recorded. Patient InstructionsNo instructions recorded. Reason for Referral None Reported. Results Created Date Observation Date Name Description Value Unit Range Abnormal Flag Note LastModifiedBy Organization Detail LastModifiedTime 09/22/19 25 09/21/2024 SURGI CHASE surgical SEE BELOW abnormal Elkin topat holog y Repor t NAME: RAH BELL PATH: [id number] PROCE DURE DATE: 09/21 SIGNO UT DATE: 09/26 Copy to: Diagn osis: Left Mary p - BASAL CELL CARCI NOMA Comme nt: The deep matty n is invol lorenzo with tumor . AJCC: T1, Nx, Mx SOURC E OF SPECI MEN: SKIN, L MARY P CLINI CHASE INFOR MATIO N: R/O: SCC Gross Descr iptio n: The speci men consi sted of a manzo fragm ent which was trise cted and measu red 10 x 10 x 3 mm. All submi tted in one casse tte. Micro scopi c Descr iptio n: Nests and aggre geronimo of immat ure basal oid epith elial cells with perip heral palis ading are prese nt in the dermi s. LEBRON JONES MD Edith d Out Date: 09/26 09:59 1 Not Available [facility] [address] [place], [address], 09/26/2024 09:59:40 Result Notes None recorded. Procedures Surgical History Date Name Laterality Status Provider Name and Address Organization Details Recorded Time 11/14/19 25 DAK - ED&C; trunk,arm,leg completed Shirley Baird [facility] 11/13/2024 13:46:20 09/22/19 25 DAK - Cryo AK completed Shirley Baird [facility] 09/21/2024 15:16:41 09/22/19 25 DAK - Biopsy, Tangential completed Shirley Baird [facility] 09/21/2024 15:16:49 03/20/20 24 DAK - Cryo AK completed Emeka Crook [facility] 03/20/2024 15:27:42 08/26/19 24 DAK - ED&C; trunk,arm,leg completed Emeka Crook [facility] 08/26/2023 13:18:58 08/19/19 24 DAK - Biopsy, Tangential completed HOWIE SINGH MD [address] [place], [address], [facility] 08/24/2023 06:39:17 03/25/20 23 DAK - Cryo AK completed Emeka Crook [facility] 03/25/2023 14:02:16 appendectomy completed Betsy Boo [facility] 01/07/2023 13:25:48 Imaging Results None recorded. Procedure Notes None recorded. Medical Equipment None Reported. Allergies No known drug allergies Medications Name Sig Start Date Stop Date Status Note LastModified by Organization Details LastModified Time doxycycli ne hyclate 100 mg capsule Take 1 capsule twice a day by oral route with meal(s) for 5 days. 03/20 completed Not Available Not Available Not Available Multiple Vitamin capsule Daily 01/07 completed Duration : 30 days;Ar quency: daily;Me dication Descript ion: multivit jefferson; Dosage:1 ; Route:or al; refills: 0; Quantity :100 capsule Not Available Not Available Not Available lisinopri l 20 mg tablet Bedtime 01/07 completed Duration : 30 days;Ar quency: hs;Medic ation Descript ion: lisinopr il; Dosage:1 ; Route:or al; refills: 0; Quantity :30 tablet Not Available Not Available Not Available tamsulosi n 0.4 mg capsule Take 1 capsule every day by oral route. active Not Available Not Available No t Available amlodipin e 10 mg tablet Daily active Frequenc y: daily;Me dication Descript ion: amlodipi ne; Route:or al; refills: 0 Not Available Not Available Not Available doxazosin 4 mg tablet TAKE 1 TABLET BY MOUTH AT BEDTIME 2016 active Not Available Not Available Not Avai lable potassium acetate active Not Available Not Available Not Available Vitals None Recorded Social History Question Answer Notes LastModified by Organizat ion Details LastModified Time Tobacco Smoking Status Former Smoker Laurawanda Rajeev [facility] 01/07/2023 13:25:32 Sunscreen Use? Yes Informatio n not available 09/21/2024 Tanning Bed Use No [email or web address] Informati on not available 09/21/2024 What Was The Date Of Your Most Recent Tobacco Screening? 03/20/2024 [email or web address] Information not available 03/20/2024 What Is Your Relationship Status? Information not available 01/07/2023 Sex: Male Functional Status Question Answer Note LastModified by Organization D etails LastModified Time What is your level of alcohol consumption? None Information not available 01/07/2023 Mental Status None recorded. Family History Relationship Description Onset Age of this Age Resolved Age Notes LastModified by Organization Details LastModified Time Brother Kidney stone Not availa ble 01/07/2023 13:25:15 Medical History Condition Response Kidney Stones Y Skin Cancer Y Hepatitis Y Radiation Therapy Y False Teeth Y Chronic Obstructive Pulmonary Disease Y Hypertension Y Past Encounters Encounter ID Performer Location Encounter Start Date Encounter Closed Date Diagnosis/Indication Diagnosis SNOMED-CT Code Diagnosis ICD10 Code Diagnosis IMO Codes Diagnosis Note [id number] MOJGAN GORDON MD [facility] [address] [facility],[address] [place] [address] 01/07/2023 12:39:31 01/19/2023 05:02:43 Complex renal cyst 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 No evidence of recurrence . Multiple b enign melanocytic nevi 884634910 D22.5 Benign appearing lesions.Co ntinue to monitor and follow-up with any or changing lesionsRec ommend to wear SPF 30+ with zinc or titanium oxide cream daily.Joseph mmend wearing a wide brimmed hat while outdoors. Seborrheic keratosis 394 075553 L82.1 Benign over growths of skin- Hereditary Senile angioma 9891916 I 78.1 Benign blood vessel growths- Hereditary Solar lentigo 60018089 L 81.4 Benign brown spots- Sun-induce d Actinic keratosis 280970 007 L57.0 Precancero us lesion.Willian l LN2 today.Can leave a white discolorat ion in the areas when LN2 is performed. Follow-up if lesions persists or do not resolve.Lo cations: Right preauricul ar x1. right temporal scalp x1. Left forehead x1. Right hand x1. [id number] HOWIE SINGH MD [address] [address] 08/19/2023 15:03:01 08/23/2023 16:54:55 Neoplasm of uncertain behavior of skin 87632393 D48.5 Biopsy recommende d today.- Verbal consent given by patient. Disc pain, scar, bleeding, infection and possible need for more treatment. Disc specimen will be sent to pathology- Written wound instructio ns were provided to patient.- Patient was told that they should receive results in 2 weeks via portal or telephone. - If they have not received results in two weeks, they were instructed to call. Seborrheic keratosis 394 277456 L82.1 Benign over growths of skin- Hereditary History of malignant neoplasm of skin 434166153 Z85.828 - No evidence of recurrence today - Call with any worrisome lesions or if treated lesions return - Return at regular intervals for skin exam as recommende d Multiple b enign melanocytic nevi 846017309 D22.5 - Benign moles seen on exam today- Instructed to monitor for changes and to call us for appointmen t with any changing or worrisome lesions Senile angioma 2428651 I 78.1 - Benign blood vessel growths - Hereditary Solar lentigo 89660050 L 81.4 - Benign brown spots - Sun-induce d [id number] HOWIE SINGH MD [address] [address] 08/26/2023 12:47:27 08/30/2023 08:48:02 Squamous cell carcinoma of upper extremity 593453036 C44.629 Biopsy on left radial forearm showed SCC on 08/19/2023 ath Number: [id number] Pathology report reviewed with patient today.An ED&C was recommende d. The risks, alternativ es, and benefits were discussed including but not limited to scar, bleeding, pain, infection, discolorat ion and recurrence .Will ED&C today.Vase line and a bandage was applied to the wound. Wound care instructio ns given.Call if the lesion becomes raised/rou gh/recurs. Basal cell carcinoma of face 860826011 C44.310 Biopsy on nasal bridge showed BCC on 08/19/2023 ath Number: [id number] hs procedure discussed and explained. [id number] JUN BRAN MD [address] [address] 09/29/2023 09:46:08 10/01/2023 12:33:40 [id number] HOWIE SINGH MD [address] [address] 03/20/2024 14:59:53 03/20/2024 15:31:31 Multiple benign melanocytic nevi 694366643 D22.5 I78.1 L81.4 L82.1 Benign appearing lesions.Co ntinue to monitor and follow-up with any or changing lesions.Re commend to wear SPF 30+ with zinc or titanium oxide cream daily. Prefers lotions/cr eams over sprays.Rec ommend wearing a wide brimmed hat while outdoors.F ollow up in 6 months for a full skin exam. History of malignant neoplasm of skin 004979481 Z85.828 Scars are clear.Well healed scars. No evidence of recurrence . Actinic keratosis L57.0 Precancero us lesion(s). Will LN2 today.Can leave a white discolorat ion in the areas when LN2 is performed. Follow-up if lesion(s) persists or do not resolve. Seborrheic keratosis 394 150859 L82.1 Benign over growth of skin. Reassuranc e given. [id number] HOWIE SINGH MD [address] [address] 09/21/2024 14:07:33 09/21/2024 15:33:42 Multiple benign melanocytic nevi 904060619 D22.5 I78.1 L81.4 L82.1 Benign appearing lesions.Co ntinue to monitor and follow-up with any or changing lesions.Re commend to wear SPF 30+ with zinc or titanium oxide cream daily. Prefers lotions/cr eams over sprays.Fol low up in 6 months for a full skin exam. History of malignant neoplasm of skin 075541100 Z85.828 Scars are clear.Well healed scars. No evidence of recurrence . Actinic keratosis L57.0 28116 Precancero us lesion(s). Will LN2 today.Can leave a white discolorat ion in the areas when LN2 is performed. Follow-up if lesion(s) persists or do not resolve. Neoplasm o f uncertain behavior of skin 41742077 D48.5 Biopsy recommende d today. - Verbal consent given by patient. Disc pain, scar, bleeding, infection and possible need for more treatment. Disc specimen will be sent to pathology - Written wound instructio ns were provided to patient. - Patient was told that they should receive results in 2 weeks via portal or telephone. - If they have not received results in two weeks, they were instructed to call. [id number] HOWIE SINGH MD [address] [address] 11/13/2024 13:03:39 11/13/2024 14:02:05 Basal cell carcinoma of upper extremity 203147487 C44.619 [id number] Biopsy on Left tricep showed BCC on 09/21/2024 Path Number: [id number] Pathology report reviewed with patient today.An ED&C was recommende d. The risks, alternativ es, and benefits were discussed including but not limited to scar, bleeding, pain, infection, discolorat ion and recurrence .Will ED&C today.Vase line and a bandage was applied to the wound. Wound care instructio ns given.Call if the lesion becomes raised/rou gh/recurs. Health Concerns Section Related Observation LastModified by Organization Detai ls LastModified Time None Recorded Concern Status LastModified by Organization Details LastModified Time None Recorded Advance Directives Directive None Recorded Payers Insurance Date Sequence Insurance Name Policy Number Policy Loco Covered Member ID Loco Member ID Guarantor Name 11/21/2024 1 [employer] (MEDICARE REPLACEMENT/AD VANTAGE - PPO) [id number] Rah Robbins [id number] Rah Robbins 08/19/2023 1 [place] [employer] [facility] (MEDICARE REPLACEMENT REGIONAL PPO) [id number] Rah Robbins [id number] Rah Robbins Notes Date Note Type Note Provider Name and Address Organization Details Recorded Time 08/26/2023 text/html I am here for an ED&CLeft Radial ForearmBiopsy Proven SCC [id number] reports that the area healed well. HOWIE SINGH MD [facility], [place], [address], [facility] 08/26/2023 13:44:09 03/20/2024 text/html I am here for a waist up skin check Hx of SCC/BCCLeft Radial Forearm, Nasal Bridge, Right Dorsal Hand pt reports spots of concern on L forearm, 2 on face, and one on scalp HOWIE SINGH MD [address] [place], [address], [facility] 03/21/2024 18:54:08 09/21/2024 text/html I am here for a waist up skin check Hx of SCC/BCCLeft Radial Forearm, Nasal Bridge, Right Dorsal Hand Spots of concern: right cheek, back of left arm HOWIE SINGH MD [address] [place], [address], [facility] 09/21/2024 18:37:38 11/13/2024 text/html ROS as noted in the HPI I am here for an EDCPath proven BCCPath #: [id number] : Left tricepPatient reports biopsy site healed well. HOWIE SINGH MD [facility] [place], [address], [facility] 11/13/2024 13:47:25
--- OUTSIDE RECORDS SUMMARY | 2025-02-27 14:06 | XMS_ITS | Data Portability ---
Author Organization [employer] [facility] Address [address] [place] [address] Assessment Encounter Date Assessment Date Assessment LastModified [...] senior flu shot. Not available 01/01/2025 15:11:16 01/09/2025 01/09/2025 Rah Robbins, male patient with [...] continuous oxygen therapy - Follow up with lpn or medical assistant as scheduled Chronic Diarrhea Assessment: Patient reports [...] gastroenterology for colonoscopy Not available 01/09/2025 18:10:26 01/17/2025 01/17/2025 Hematuria Assessment: Patient reported padilla [...] Modified Time Details Appointments None recorded. Lab urinalysis, dipstick [address], [id number], 14:39:19 gastrointes tinal pathogens DNA + RNA panel, JOSE FRANCISCO+non-pro be, stool 2024 025 [place] [facility] ([place]), [facility], [place], [address], 10:08:46 Referral urologist referral - first available appt 2024 025 [email or web address] Denis Fernandez MD ([place]), [address], [place], [address], 09:01:29 gastroenter ologist referral 2024 025 [email or web address] Micheal Tyson MD, [address], [place], [address], 10:41:47 Procedures None recorded. Surgeries None recorded. Imaging None recorded. Medication Orders doxycycline monohydrate 100 mg capsule 2024 025 [facility], [address] [place] [address], [address], 5 05:02:10 prednisone 20 mg tablet 2024 025 [facility], [address] [place] [address], [address], 14:10:38 hyoscyamine sulfate 0.125 mg tablet 2024 025 [facility], [address] [place] [address], [address], 5 16:58:16 Probiotic 20 billion cell capsule 2024 025 [facility], [address] [place] [address], [address], 5 05:01:08 Patient TargetsNo targets recorded. Patient InstructionsNo instructions recorded. 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 Referral for Screening for malignant neoplasm of colon Referring Physician: Dominga Steiner, Family Medicine, Encounter Date: 12/15/2024 Urologist Referral for Padilla hematuria first available appt Referring Physician: Rosalba Smith, [facility], Encounter Date: 01/17/2025 Results Created Date Observation Date Name Description Value Unit Range Abnormal Flag Note LastModifiedBy Organization Detail LastModifiedTime 11/16/1911/16/2024 CBC WITH DIFFE RENTI AL/PL ATELE T WBC 7.6 x10e3 /uL 3.4-10 .8 normal Not Available [facility] ([facility]) [address] [place], [address], 11/16/2024 08:16:04 11/16/1911/16/2024 CBC WITH DIFFE RENTI AL/PL ATELE T RBC 5.11 x10e6 /uL 4.14-5 .80 normal Not Available [facility] ([facility]) [address] [place], [address], 11/16/2024 08:16:04 11/16/1911/16/2024 CBC WITH DIFFE RENTI AL/PL ATELE T hemoglobin 16.1 g/dL 13.0-1 7.7 normal Not Available [facility] ([facility]) [address] [place], [address], 11/16/2024 08:16:04 11/16/1911/16/2024 CBC WITH DIFFE RENTI AL/PL ATELE T hematocrit 49.9 % 37.5-5 1.0 normal Not Available [facility] ([facility]) [address] [place], [address], 11/16/2024 08:16:04 11/16/1911/16/2024 CBC WITH DIFFE RENTI AL/PL ATELE T MCV 98 fL 79-97 above high normal Not Available [facility] ([facility]) [address] [place], [address], 11/16/2024 08:16:04 11/16/1911/16/2024 CBC WITH DIFFE RENTI AL/PL ATELE T MCH 31.5 pg 26.6-3 3.0 normal Not Available [facility] ([facility]) [address] [facility], [place], [address], 11/16/2024 08:16:04 11/16/19 25 11/16/2024 CBC WITH DIFFE RENTI AL/PL ATELE T MCHC 32.3 g/dL 31.5-3 5.7 normal Not Available [facility] ([facility]) [address] [facility], [place], [address], 11/16/2024 08:16:04 11/16/1911/16/2024 CBC WITH DIFFE RENTI AL/PL ATELE T RDW 13.7 % 11.6-1 5.4 Not Available [facility] ([facility]) [address] [facility], [place], [address], 11/16/2024 08:16:04 11/16/19 25 11/16/2024 CBC WITH DIFFE RENTI AL/PL ATELE T platelets 229 x10e3 /uL 150-45 0 normal Not Available [facility] ([facility]) [address] [facility], [place], [address], 11/16/2024 08:16:04 11/16/19 25 11/16/2024 CBC WITH DIFFE RENTI AL/PL ATELE T neutrophils 64 % not estab. normal Not Available [facility] ([facility]) [address] [facility], [place], [address], 11/16/2024 08:16:04 11/16/19 25 11/16/2024 CBC WITH DIFFE RENTI AL/PL ATELE T lymphs 24 % not estab. normal Not Available [facility] ([facility]) [address] [facility], [place], [address], 11/16/2024 08:16:04 11/16/19 25 11/16/2024 CBC WITH DIFFE RENTI AL/PL ATELE T monocytes 9 % not estab. normal Not Available [facility] ([facility]) [address] [place], [address], 11/16/2024 08:16:04 11/16/19 25 11/16/2024 CBC WITH DIFFE RENTI AL/PL ATELE T eos 2 % not estab. normal Not Available [facility] ([facility]) [address] [place], [address], 11/16/2024 08:16:04 11/16/19 25 11/16/2024 CBC WITH DIFFE RENTI AL/PL ATELE T basos 1 % not estab. normal Not Available [facility] ([facility]) [address] [facility], [place], [address], 11/16/2024 08:16:04 11/16/19 25 11/16/2024 CBC WITH DIFFE RENTI AL/PL ATELE T immature cells RECREATIONAL VEHICLE RESORT MANAGER Not Available [facility] ([facility]) [address] [place], [address], 11/16/2024 08:16:04 11/16/19 25 11/16/2024 CBC WITH DIFFE RENTI AL/PL ATELE T neutrophils (absolute) 4.9 x10e3 /uL 1.4-7. 0 normal Not Available [facility] ([facility]) [address] [place], [address], 11/16/2024 08:16:04 11/16/19 25 11/16/2024 CBC WITH DIFFE RENTI AL/PL ATELE T lymphs (absolute) 1.8 x10e3 /uL 0.7-3. 1 normal Not Available [facility] ([facility]) [address] [place], [address], 11/16/2024 08:16:04 11/16/19 25 11/16/2024 CBC WITH DIFFE RENTI AL/PL ATELE T monocytes(ab solute) 0.7 x10e3 /uL 0.1-0. 9 normal Not Available [facility] ([facility]) [address] [facility], [place], [address], 11/16/2024 08:16:04 11/16/19 25 11/16/2024 CBC WITH DIFFE RENTI AL/PL ATELE T eos (absolute) 0.1 x10e3 /uL 0.0-0. 4 normal Not Available [facility] ([facility]) [address] [facility], [place], [address], 11/16/2024 08:16:04 11/16/19 25 11/16/2024 CBC WITH DIFFE RENTI AL/PL ATELE T baso (absolute) 0.0 x10e3 /uL 0.0-0. 2 normal Not Available [facility] ([facility]) [address] [facility], [place], [address], 11/16/2024 08:16:04 11/16/19 25 11/16/2024 CBC WITH DIFFE RENTI AL/PL ATELE T immature granulocytes 0 % not estab. Not Available [facility] ([facility]) [address] [facility], [place], [address], 11/16/2024 08:16:04 11/16/19 25 11/16/2024 CBC WITH DIFFE RENTI AL/PL ATELE T immature grans (abs) 0.0 x10e3 /uL 0.0-0. 1 Not Available [facility] ([facility]) [address] [facility], [place], [address], 11/16/2024 08:16:04 11/16/1911/16/2024 CBC WITH DIFFE RENTI AL/PL ATELE T NRBC RECREATIONAL VEHICLE RESORT MANAGER Not Available [facility] ([facility]) [address] [facility], [place], [address], 11/16/2024 08:16:04 11/16/19 25 11/16/2024 CBC WITH DIFFE RENTI AL/PL TAMI Donovan hematology comments: RECREATIONAL VEHICLE RESORT MANAGER Not Available [facility] ([facility]) [address] [facility] [place], [address], 11/16/2024 08:16:04 11/16/19 25 11/16/2024 COMP. METAB OLIC PANEL (14) glucose 92 mg/dL 70-99 normal Not Available [facility] ([facility]) [address] [facility] [place], [address], 11/16/2024 08:16:05 11/16/19 25 11/16/2024 COMP. METAB OLIC PANEL (14) BUN 26 mg/dL 8-27 normal Not Available [facility] ([facility]) [address] [facility], [place], [address], 11/16/2024 08:16:05 11/16/19 25 11/16/2024 COMP. METAB OLIC PANEL (14) creatinine 2.04 mg/dL 0.76-1 .27 above high normal Not Available [facility] ([facility]) [address] [facility] [place], [address], 11/16/2024 08:16:05 11/16/19 25 11/16/2024 COMP. METAB OLIC PANEL (14) eGFR 32 mL/mi n/1.7 3 >59 below low normal Not Available [facility] ([facility]) [address] [place], [address], 11/16/2024 08:16:05 11/16/19 25 11/16/2024 COMP. METAB OLIC PANEL (14) BUN/creatini ne ratio 13 10-24 normal Not Available [facility] ([facility]) [address] [place], [address], 11/16/2024 08:16:05 11/16/19 25 11/16/2024 COMP. METAB OLIC PANEL (14) sodium 140 mmol/ L 134-14 4 normal Not Available [facility] ([facility]) [address] [facility], [place], [address], 11/16/2024 08:16:05 11/16/19 25 11/16/2024 COMP. METAB OLIC PANEL (14) potassium 4.6 mmol/ L 3.5-5. 2 normal Not Available [facility] ([facility]) [address] [place], [address], 11/16/2024 08:16:05 11/16/19 25 11/16/2024 COMP. METAB OLIC PANEL (14) chloride 104 mmol/ L 96-106 normal Not Available [facility] ([facility]) [address] [place], [address], 11/16/2024 08:16:05 11/16/19 25 11/16/2024 COMP. METAB OLIC PANEL (14) carbon dioxide, total 19 mmol/ L 20-29 below low normal Not Available [facility] ([facility]) [address] [place], [address], 11/16/2024 08:16:05 11/16/19 25 11/16/2024 COMP. METAB OLIC PANEL (14) calcium 9.3 mg/dL 8.6-10 .2 normal Not Available [facility] ([facility]) [address] [facility] [place], [address], 11/16/2024 08:16:05 11/16/19 25 11/16/2024 COMP. METAB OLIC PANEL (14) protein, total 6.6 g/dL 6.0-8. 5 normal Not Available [facility] ([facility]) [address] [facility] [place], [address], 11/16/2024 08:16:05 11/16/19 25 11/16/2024 COMP. METAB OLIC PANEL (14) albumin 4.5 g/dL 3.7-4. 7 normal Not Available [facility] ([facility]) [address] [facility], [address], 11/16/2024 08:16:05 11/16/19 25 11/16/2024 COMP. METAB OLIC PANEL (14) globulin, total 2.1 g/dL 1.5-4. 5 Not Available [facility] ([facility]) [address] [facility] [place], [address], 11/16/2024 08:16:05 11/16/19 25 11/16/2024 COMP. METAB OLIC PANEL (14) bilirubin, total 0.8 mg/dL 0.0-1. 2 normal Not Available [facility] ([facility]) [address] [facility] [place], [address], 11/16/2024 08:16:05 11/16/19 25 11/16/2024 COMP. METAB OLIC PANEL (14) alkaline phosphatase 88 IU/L 44-121 normal Not Available [facility] ([facility]) [address] [facility] [place], [address], 11/16/2024 08:16:05 11/16/19 25 11/16/2024 COMP. METAB OLIC PANEL (14) AST (SGOT) 21 IU/L 0-40 normal Not Available [facility] ([facility]) [address] [facility] [place], [address], 11/16/2024 08:16:05 11/16/19 25 11/16/2024 COMP. METAB OLIC PANEL (14) ALT (SGPT) 24 IU/L 0-44 normal Not Available [facility] ([facility]) [address] [facility] [place], [address], 11/16/2024 08:16:05 11/16/19 25 11/16/2024 LIPID PANEL cholesterol, total 213 mg/dL 100-19 9 above high normal Not Available [facility] ([facility]) [address] [facility] [place], [address], 11/16/2024 08:16:06 11/16/19 25 11/16/2024 LIPID PANEL triglyceride s 137 mg/dL 0-149 normal Not Available [facility] ([facility]) [address] [place], [address], 11/16/2024 08:16:06 11/16/19 25 11/16/2024 LIPID PANEL HDL cholesterol 45 mg/dL >39 normal Not Available [facility] ([facility]) [address] [place], [address], 11/16/2024 08:16:06 11/16/19 25 11/16/2024 LIPID PANEL VLDL cholesterol prabhkaar 25 mg/dL 5-40 Not Available [facility] ([facility]) [address] [place], [address], 11/16/2024 08:16:06 11/16/1911/16/2024 LIPID PANEL LDL chol calc ([facility]) 143 mg/dL 0-99 above high normal Not Available [facility] ([facility]) [address] [place], [address], 11/16/2024 08:16:06 11/16/1911/16/2024 LIPID PANEL LDL calc comment: RECREATIONAL VEHICLE RESORT MANAGER Not Available [facility] ([facility]) [address] [place], [address], 11/16/2024 08:16:06 11/16/1911/16/2024 PROST ATE-S PECIF IC AG prostate specific Ag 0.2 NG/mL 0.0-4. 0 normal Monie ECLIA metho dolog y. Accor ding to the Ameri can Urolo gical Assoc iatio n, Serum PSA shoul d decre ase and remai n at undet ectab le level s after radic al prost atect david. The AUA defin es bioch emica l recur rence as an initi al PSA value 0.2 ng/mL or great er follo wed by a subse quent confi rmato ry PSA value 0.2 ng/mL or great er. Value s obtai david with diffe rent assay metho ds or kits canno t be used inter green eably . Resul ts canno t be inter prete d as absol [place] evide nce of the prese nce or absen ce of nuvia beavers se. Not Available [facility] ([facility]) [address] [facility], [place], [address], 11/16/2024 08:16:06 11/16/1911/16/2024 VITAM IN D, 25-HY DROXY vitamin D, 25-hydroxy 20.0 NG/mL 30.0-1 00.0 below low normal Vitam in D defic iency has been defin ed by the Insti tute of Medic ine and an Endoc rine Socie ty pract ice guide line as a level of serum 25-OH vitam in D less than 20 ng/mL (1,2) . The Endoc rine Socie ty went on to furth er defin e vitam in D insuf ficie ncy as a level betwe en 21 and 29 ng/mL (2). 1. IOM (Inst itute of Medic ine). 2009. Dieta ry refer ence intfarzaneh es for calci um and D. Jovanna colorado [place]: The [employer] includes the [facility] Press . 2. Cornelio david [place], Queta salas [place], Hilda off-F errar i ALBERTO, et al. Evalu ation , treat ment, and preve ntion of vitam in D defic iency : an Endoc rine Socie ty clini prabhakar pract ice guide line. JCEM. 2010; 96(7) :1911 -30. Not Available [facility] ([facility]) [address] [facility], [place], [address], 11/16/2024 08:16:07 01/03/20 25 01/08/2025 GI PROFI LE, STOOL , PCR campylobacte r COMMEN T Test not perfo rmed. Consi stenc y of stool speci men too solid for sidra sis. This is a corre cted repor t. The previ ously repor sathish resul t was: ===== ===Te st=== ===== ===== Resul t==== ===== ==Uni ts=== ====D ate Resul sathish= Test not perfo rmed. The requi red speci men for the test order ed was not recei lorenzo. ORIGI NAL REPOR T SENT 2024 Not Available [facility] ([facility]) [address] [place], [address], 01/08/2025 09:07:33 01/03/2001/08/2025 GI PROFI LE, STOOL , PCR C difficile toxin A/B COMMEN T Test not perfo rmed. Consi stenc y of stool speci men too solid for sidra sis. This is a corre cted repor t. The previ ously repor sathish resul t was: ===== ===Te st=== ===== ===== Resul t==== ===== ==Uni ts=== ====D ate Resul sahtish= Test not perfo rmed. The requi red speci men for the test order ed was not recei lorenzo. Not Available [facility] ([facility]) [address] [place], [address], 01/08/2025 09:07:33 01/03/2001/08/2025 GI PROFI LE, STOOL , PCR plesiomonas shigelloides COMMEN T Test not perfo rmed. Consi stenc y of stool speci men too solid for sidra sis. This is a corre cted repor t. The previ ously repor satihsh resul t was: ===== ===Te st=== ===== ===== Resul t==== ===== ==Uni ts=== ====D ate Resul sathish= Test not perfo rmed. The requi red speci men for the test order ed was not recei lorenzo. Not Available [facility] ([facility]) [address] [place], [address], 01/08/2025 09:07:33 01/03/2001/08/2025 GI PROFI LE, STOOL , PCR salmonella COMMEN T Test not perfo rmed. Consi stenc y of stool speci men too solid for sidra sis. This is a corre cted repor t. The previ ously repor sathish resul t was: ===== ===Te st=== ===== ===== Resul t==== ===== ==Uni ts=== ====D ate Resul sathish= Test not perfo rmed. The requi red speci men for the test order ed was not recei lorenzo. Not Available [facility] ([facility]) [address] [facility], [place], [address], 01/08/2025 09:07:33 01/03/2001/08/2025 GI PROFI LE, STOOL , PCR vibrio COMMEN T Test not perfo rmed. Consi stenc y of stool speci men too solid for sidra sis. This is a corre cted repor t. The previ ously repor sathish resul t was: ===== ===Te st=== ===== ===== Resul t==== ===== ==Uni ts=== ====D ate Resul sathish= Test not perfo rmed. The requi red speci men for the test order ed was not recei lorenzo. Not Available [facility] ([facility]) [address] [facility], [place], [address], 01/08/2025 09:07:33 01/03/2001/08/2025 GI PROFI LE, STOOL , PCR vibrio cholerae COMMEN T Test not perfo rmed. Consi stenc y of stool speci men too solid for sidra sis. This is a corre cted repor t. The previ ously repor sathish resul t was: ===== ===Te st=== ===== ===== Resul t==== ===== ==Uni ts=== ====D ate Resul sathish= Test not perfo rmed. The requi red speci men for the test order ed was not recei lorenzo. Not Available [facility] ([facility]) [address] [place], [address], 01/08/2025 09:07:33 01/03/2001/08/2025 GI PROFI LE, STOOL , PCR yersinia enterocoliti ca COMMEN T Test not perfo rmed. Consi stenc y of stool speci men too solid for sidra sis. This is a corre cted repor t. The previ ously repor sathish resul t was: ===== ===Te st=== ===== ===== Resul t==== ===== ==Uni ts=== ====D ate Resul sathish= Test not perfo rmed. The requi red speci men for the test order ed was not recei lorenzo. Not Available [facility] ([facility]) [address] [place], [address], 01/08/2025 09:07:33 01/03/2001/08/2025 GI PROFI LE, STOOL , PCR enteroaggreg ative E coli COMMEN T Test not perfo rmed. Consi stenc y of stool speci men too solid for sidra sis. This is a corre cted repor t. The previ ously repor sathish resul t was: ===== ===Te st=== ===== ===== Resul t==== ===== ==Uni ts=== ====D ate Resul sathish= Test not perfo rmed. The requi red speci men for the test order ed was not recei lorenzo. Not Available [facility] ([facility]) [address] [facility], [place], [address], 01/08/2025 09:07:33 01/03/2001/08/2025 GI PROFI LE, STOOL , PCR enteropathog enic E coli COMMEN T Test not perfo rmed. Consi stenc y of stool speci men too solid for sidra sis. This is a corre cted repor t. The previ ously repor sathish resul t was: ===== ===Te st=== ===== ===== Resul t==== ===== ==Uni ts=== ====D ate Resul sathish= Test not perfo rmed. The requi red speci men for the test order ed was not recei lorenzo. Not Available [facility] ([facility]) [address] [place], [address], 01/08/2025 09:07:33 01/03/2001/08/2025 GI PROFI LE, STOOL , PCR enterotoxige sue E coli COMMEN T Test not perfo rmed. Consi stenc y of stool speci men too solid for sidra sis. This is a corre cted repor t. The previ ously repor sathish resul t was: ===== ===Te st=== ===== ===== Resul t==== ===== ==Uni ts=== ====D ate Resul sathish= Test not perfo rmed. The requi red speci men for the test order ed was not recei lorenzo. Not Available [facility] ([facility]) [address] [place], [address], 01/08/2025 09:07:33 01/03/2001/08/2025 GI PROFI LE, STOOL , PCR shiga-toxin- producing E coli COMMEN T Test not perfo rmed. Consi stenc y of stool speci men too solid for sidra sis. This is a corre cted repor t. The previ ously repor sathish resul t was: ===== ===Te st=== ===== ===== Resul t==== ===== ==Uni ts=== ====D ate Resul sathish= Test not perfo rmed. The requi red speci men for the test order ed was not recei lorenzo. Not Available [facility] ([facility]) [address] [place], [address], 01/08/2025 09:07:33 01/03/2001/08/2025 GI PROFI LE, STOOL , PCR E coli O157 COMMEN T Test not perfo rmed. Consi stenc y of stool speci men too solid for sidra sis. This is a corre cted repor t. The previ ously repor sathish resul t was: ===== ===Te st=== ===== ===== Resul t==== ===== ==Uni ts=== ====D ate Resul sathish= Test not perfo rmed. The requi red speci men for the test order ed was not recei lorenzo. Not Available [facility] ([facility]) [address] [place], [address], 01/08/2025 09:07:33 01/03/2001/08/2025 GI PROFI LE, STOOL , PCR shigella/ent eroinvasive E coli COMMEN T Test not perfo rmed. Consi stenc y of stool speci men too solid for sidra sis. This is a corre cted repor t. The previ ously repor sathish resul t was: ===== ===Te st=== ===== ===== Resul t==== ===== ==Uni ts=== ====D ate Resul sathish= Test not perfo rmed. The requi red speci men for the test order ed was not recei lorenzo. Not Available [facility] ([facility]) [address] [facility], [place], [address], 01/08/2025 09:07:33 01/03/2001/08/2025 GI PROFI LE, STOOL , PCR cryptosporid ium COMMEN T Test not perfo rmed. Consi stenc y of stool speci men too solid for sidra sis. This is a corre cted repor t. The previ ously repor sathish resul t was: ===== ===Te st=== ===== ===== Resul t==== ===== ==Uni ts=== ====D ate Resul sathish= Test not perfo rmed. The requi red speci men for the test order ed was not recei lorenoz. Not Available [facility] ([facility]) [address] [place], [address], 01/08/2025 09:07:33 01/03/2001/08/2025 GI PROFI LE, STOOL , PCR cyclospora cayetanensis COMMEN T Test not perfo rmed. Consi stenc y of stool speci men too solid for sidra sis. This is a corre cted repor t. The previ ously repor sathish resul t was: ===== ===Te st=== ===== ===== Resul t==== ===== ==Uni ts=== ====D ate Resul sathish= Test not perfo rmed. The requi red speci men for the test order ed was not recei lorenzo. Not Available [facility] ([facility]) [address] [place], [address], 01/08/2025 09:07:33 01/03/2001/08/2025 GI PROFI LE, STOOL , PCR entamoeba histolytica COMMEN T Test not perfo rmed. Consi stenc y of stool speci men too solid for sidra sis. This is a corre cted repor t. The previ ously repor sathish resul t was: ===== ===Te st=== ===== ===== Resul t==== ===== ==Uni ts=== ====D ate Resul sathish= Test not perfo rmed. The requi red speci men for the test order ed was not recei lorenzo. Not Available [facility] ([facility]) [address] [facility], [place], [address], 01/08/2025 09:07:33 01/03/2001/08/2025 GI PROFI LE, STOOL , PCR giardia lamblia COMMEN T Test not perfo rmed. Consi stenc y of stool speci men too solid for sidra sis. This is a corre cted repor t. The previ ously repor sathish resul t was: ===== ===Te st=== ===== ===== Resul t==== ===== ==Uni ts=== ====D ate Resul sathish= Test not perfo rmed. The requi red speci men for the test order ed was not recei lorenzo. Not Available [facility] ([facility]) [address] [facility], [place], [address], 01/08/2025 09:07:33 01/03/2001/08/2025 GI PROFI LE, STOOL , PCR adenovirus F 40/41 COMMEN T Test not perfo rmed. Consi stenc y of stool speci men too solid for sidra sis. This is a corre cted repor t. The previ ously repor sathish resul t was: ===== ===Te st=== ===== ===== Resul t==== ===== ==Uni ts=== ====D ate Resul sathish= Test not perfo rmed. The requi red speci men for the test order ed was not recei lorenzo. Not Available [facility] ([facility]) [address] [facility], [place], [address], 01/08/2025 09:07:33 01/03/2001/08/2025 GI PROFI LE, STOOL , PCR astrovirus COMMEN T Test not perfo rmed. Consi stenc y of stool speci men too solid for sidra sis. This is a corre cted repor t. The previ ously repor sathish resul t was: ===== ===Te st=== ===== ===== Resul t==== ===== ==Uni ts=== ====D ate Resul sathish= Test not perfo rmed. The requi red speci men for the test order ed was not recei lorenzo. Not Available [facility] ([facility]) [address] [place], [place], [address], 01/08/2025 09:07:33 01/03/2001/08/2025 GI PROFI LE, STOOL , PCR norovirus GI/gii COMMEN T Test not perfo rmed. Consi stenc y of stool speci men too solid for sidra sis. This is a corre cted repor t. The previ ously repor sathish resul t was: ===== ===Te st=== ===== ===== Resul t==== ===== ==Uni ts=== ====D ate Resul sathish= Test not perfo rmed. The requi red speci men for the test order ed was not recei lorenzo. Not Available [facility] ([facility]) [address] [place], [address], 01/08/2025 09:07:33 01/03/2001/08/2025 GI PROFI LE, STOOL , PCR rotavirus A COMMEN T Test not perfo rmed. Consi stenc y of stool speci men too solid for sidra sis. This is a corre cted repor t. The previ ously repor sathish resul t was: ===== ===Te st=== ===== ===== Resul t==== ===== ==Uni ts=== ====D ate Resul sathish= Test not perfo rmed. The requi red speci men for the test order ed was not recei lorenzo. Not Available [facility] ([facility]) [address] [place], [address], 01/08/2025 09:07:33 01/03/2001/08/2025 GI PROFI LE, STOOL , PCR sapovirus COMMEN T Test not perfo rmed. Consi stenc y of stool speci men too solid for sidra sis. This is a corre cted repor t. The previ ously repor sathish resul t was: ===== ===Te st=== ===== ===== Resul t==== ===== ==Uni ts=== ====D ate Resul sathish= Test not perfo rmed. The requi red speci men for the test order ed was not recei lorenzo. Not Available [facility] ([facility]) [address] [place], [address], 01/08/2025 09:07:33 01/03/2001/04/[address] PROBL EM request problem COMMEN T Test not perfo rmed. The requi red speci men for the test order ed was not recei lorenzo. TEST: [id number] GI Profi le, Stool , PCR Not Available [facility] ([facility]) [address] [facility], [place], [address], 01/04/2025 10:08:47 01/18/20 25 01/17/2025 urina lysis , dipst ick Leukocytes Negati ve Not Available [address], [address], 01/17/2025 13:51:56 01/18/20 25 01/17/2025 urina lysis , dipst ick Nitrite negati ve Not Available [address], [address], 01/17/2025 13:51:56 01/18/20 25 01/17/2025 urina lysis , dipst ick Urobilinogen .2 Not Available [address], [address], 01/17/2025 13:51:56 01/18/20 25 01/17/2025 urina lysis , dipst ick Protein 30 Not Available [address], [address], 01/17/2025 13:51:56 01/18/20 25 01/17/2025 urina lysis , dipst ick pH 6.0 Not Available [address], [address], 01/17/2025 13:51:56 01/18/20 25 01/17/2025 urina lysis , dipst ick Blood Negati ve Not Available [address], [address], 01/17/2025 13:51:56 01/18/20 25 01/17/2025 urina lysis , dipst ick Specific Gazelle 1.020 Not Available [address], [address], 01/17/2025 13:51:56 01/18/20 25 01/17/2025 urina lysis , dipst ick Ketone Negati ve Not Available [address], [address], 01/17/2025 13:51:56 01/18/20 25 01/17/2025 urina lysis , dipst ick Bilirubin Negati ve Not Available [address], [address], 01/17/2025 13:51:56 01/18/20 25 01/17/2025 urina lysis , dipst ick Glucose Negati ve Not Available [address], [address], 01/17/2025 13:51:56 01/18/20 25 01/17/2025 urina lysis , dipst ick Appearance Clear Not Available [address], [address], 01/17/2025 13:51:56 01/18/20 25 01/17/2025 urina lysis , dipst ick Color Yellow Not Available [address], [address], 01/17/2025 13:51:56 Result Notes None recorded. Problems Name Problem SNOMED Code Status Onset Date Resolution Date Notes Provider Name and Address Organization Details Recorded Time Malignan t neoplasm of prostate 695171199 Completed 201706/29/2017 Problem Code: C61; Problem Code Type: ICD-10; Not Available [facility] 21:20:30 Hyperten sive disorder 70346066 Completed 201706/29/2017 Problem Code: I10; Problem Code Type: ICD-10; Not Available [facility] 21:20:30 Large prostate 879618524 Active 2017 Problem Code: N40.0; Problem Code Type: ICD-10; Not Available [facility] 21:20:31 Benign essentia l hyperten [place] 3674255 Completed 201706/29/2017 Problem Code: 401.1; Problem Code Type: ICD-9; Not Available [facility] 21:20:35 Endocrin e/metabo lic screenin g Completed 201704/01/2022 Problem Code: Z13.29; Problem Code Type: ICD-10; FLORIDALMA [employer] 14:25:21 Thyroid disorder screenin g Completed 201706/29/2017 Problem Code: V77.0; Problem Code Type: ICD-9; Not Available [facility] 21:20:36 Spasm of back muscles 000626978 Completed 201710/26/2017 Problem Code: M62.830; Problem Code Type: ICD-10; Not Available [facility] 21:20:31 Pain in thoracic spine 059849121 Completed 201710/26/2017 Problem Code: M54.89; Problem Code Type: ICD-10; Not Available [facility] 21:20:31 Spasm 25392602 Completed 201710/26/2017 Problem Code: 728.85; Problem Code Type: ICD-9; Not Available [facility] 21:20:37 Dehydrat ion 08777840 Completed 201810/23/2019 Problem Code: E86.0; Problem Code Type: ICD-10; Not Available [facility] 21:20:30 Diarrhea 79564678 Completed 201810/23/2019 Problem Code: R19.7; Problem Code Type: ICD-10; Rosalba Smith APRN [address] [place] [address], [address] , [facility] [employer] [facility]. 14:41:32 Mixed hyperlip idemia 141319969 Active 2018 Problem Code: E78.2; Problem Code Type: ICD-10; Not Available [facility] 21:20:30 Abnormal weight loss 258099537 Completed 201810/23/2019 Problem Code: R63.4; Problem Code Type: ICD-10; Not Available [facility] 21:20:33 Verruca vulgaris 50643742 Completed 201810/23/2019 Problem Code: B07.9; Problem Code Type: ICD-10; Not Available [facility] 21:20:30 Acute bronchit is 81944629 Completed 201810/23/2019 Problem Code: J20.9; Problem Code Type: ICD-10; Not Available [facility] 21:20:31 Cough 88392811 Completed 201810/23/2019 Problem Code: R05; Problem Code Type: ICD-10; Not Available [facility] 2 21:20:32 Function al urinary incontin ence 971938728 Active 2018 Problem Code: R39.81; Problem Code Type: ICD-10; Not Available [facility] 2 21:20:32 Localize d edema 245403233 Completed 201804/01/2022 Problem Code: R60.0; Problem Code Type: ICD-10; MILLA ayala, [employer] 2 14:25:21 Benign paroxysm al position al vertigo or nystagmu s 366357053 Completed 201910/23/2019 Not Available [facility] 2 21:20:30 Body mass index overweig ht 618074815 Completed 201910/23/2019 Problem Code: Z68.28; Problem Code Type: ICD-10; Rosalba Smith, [employer]OL [address] [place] [address], [address] , [employer] 4 14:10:41 Chronic obstruct marge pulmonar y disease 23590864 Active 2019 Problem Code: J44.9; Problem Code Type: ICD-10; Not Available [facility] 2 21:20:31 General examinat ion of patient Active 2019 Not Available [facility] 2 21:20:36 Influenz a vaccine needed 06490464296 06 Completed 201910/21/2020 Problem Code: Z23; Problem Code Type: ICD-10; MILLA ayala, [employer] 14:25:21 Neoplasm of bone 801757133 Completed 201904/23/2020 Not Available [facility] 21:20:30 Chronic kidney disease stage 3 862976859 Active 2019 Problem Code: N18.30; Problem Code Type: ICD-10; Not Available [facility] 2 21:20:31 Influenz a vaccine needed 21041741256 Completed 201910/21/2020 Problem Code: Z23; Problem Code Type: ICD-10; MILLA ayala, [employer] 2 14:25:21 Vitamin D deficien cy 70330829 Active 2020 Problem Code: E55.9; Problem Code Type: ICD-10; Not Available [facility] 2 21:20:30 History of malignan t neoplasm of prostate 477837866 Active 2020 Problem Code: Z85.46; Problem Code Type: ICD-10; Not Available [facility] 2 21:20:35 Influenz a vaccine needed 72047280433 Completed 202004/01/2022 Problem Code: Z23; Problem Code Type: ICD-10; MILLA ayala, [employer] 2 14:25:21 Irritabl e bowel syndrome with diarrhea 646219787 Completed 202004/01/2022 Problem Code: K58.0; Problem Code Type: ICD-10; MILLA ayala, [employer] 2 14:25:21 Body mass index 30+ - obesity 791935389 Active 2020 Problem Code: Z68.30; Problem Code Type: ICD-10; Rosalba Smith APRN [address] [place] [address], [address] , [employer] 5 11:11:53 Essentia l hyperten [place] 24192507 Active 2023 Rosalba Smith APRN [address] [place] [address], [address] , [employer] 4 14:11:05 Acute diarrhea 604427943 Active 2024 DOMINGA STEINER NP [address] [place] [address], [address] , [employer] 5 10:29:06 Diarrhea 52821054 Active 2024 Problem Code: R19.7; Problem Code Type: ICD-10; Rosalba Smith APRN [address] [place], [address] , [employer] 5 14:41:31 Acute exacerba tion of chronic obstruct marge pulmonar y disease 164182366 Active 2024 Rosalba Smith APRN [address] [place], [address] , [employer] 16:31:46 Irritabl e bowel syndrome characte rized by alternat ing bowel habit 199328343 Active 2024 Rosalba Smith APRN [address] [place] [address], [address] , [employer] 16:32:09 Padilla hematuri a 476107928 Active 2024 Rosalba Smith APRN [address] [place] [address], [address] , [employer] 14:06:42 Complex renal cyst 937214086 Active 2024 Rosalba Smith APRN [address] [place] [address], [address] , [employer]. 14:07:16 Notes:*Problem Name: Encount er for general adult medical examination *ICD-10 Codes: Z00.00 *Problem Status: Chronic *Comments: SRJ99Luaia: 'Z00.0'; *Problem Code: Z00.0 *Problem Code Type: [...] and Address Organization Details Last Updated DateTime 175.26 cm 31 kg/m2 67088.4 g 97.9 [degF] 66 /min 90 % 90 % 139/71 mm[Hg] [facility] [employer] 10:09:26 Date Recorded Body height Body mass index (BMI) Body weight Body temperature Heart rate Oxygen saturation Oxygen saturation in Arterial blood by Pulse oximetry Systolic And Diastolic Provider Name and Address Organization Details Last Updated DateTime 5 175.26 cm 30.9 kg/m2 19802.2 4 g 98.5 [degF] 72 /min 91 % 91 % 118/53 mm[Hg] MILLA [employer] 14:26:33 Date Recorded Body height Body mass index (BMI) Body weight Body temperature Heart rate Oxygen saturation Oxygen saturation in Arterial blood by Pulse oximetry Systolic And Diastolic Provider Name and Address Organization Details Last Updated DateTime 5 175.26 cm 30.3 kg/m2 92566.4 4 g 97.8 [degF] 70 /min 85 % 85 % 129/64 mm[Hg] Lillie Ley [employer] 16:02:19 Date Recorded Body height Body mass index (BMI) Body weight Body temperature Heart rate Oxygen saturation Oxygen saturation in Arterial blood by Pulse oximetry Systolic And Diastolic Systolic And Diastolic Provider Name and Address Organization Details Last Updated DateTime 5 175.26 cm 30.9 kg/m2 32127.8 1 g 98.4 [degF] 73 /min 91 % 91 % 93/53 mm[Hg] 133/69 mm[Hg] MILLA [employer] 14:01:57 Social History Question Answer Notes LastModified by Organizat ion Details LastModified Time Tobacco Smoking Status Former Smoker SocialHis toryQuest ion: 'Tobacco/ Alcohol/S upplement s'; SocialHis toryRespo nse: 'Former Smoker'; Not Available [facility] 12/30/2021 22:56:51 Do You Have An Advance [...] Do You Have A Medical Power Of Client Support Administrator? No Information not available 02/20/2022 What Was [...] high-dose, quadrivalent, PF 3 completed Rosalba Smith, [employer] [address] [place], [address], [employer] 02/10/2023 17:49:28 RSV, recombinant, protein subunit RSVpreF, adjuvant reconstituted, 0.5 mL, PF 3 completed Mare ayala, [employer], [employer] 03/24/2023 09:54:27 COVID-19, mRNA, LNP-S, PF, lucero-sucrose, 30 mcg/0.3 mL 3 completed MILLA ayala [employer] 04/02/2023 14:22:10 COVID-19, mRNA, LNP-S, PF, 100 mcg/0.5mL dose or 50 mcg/0.25mL dose 1 completed MILLA ayala, [employer] 07/20/2022 14:13:55 COVID-19, mRNA, LNP-S, PF, 100 mcg/0.5mL dose or 50 mcg/0.25mL dose 1 completed MILLA ayala, [employer] 07/20/2022 14:13:55 Influenza, split virus, quadrivalent, preservative 8 completed Not Available [facility] 12/30/2021 23:30:12 Influenza, split virus, quadrivalent, PF 1 completed Not Available [facility] 12/30/2021 23:30:12 zoster recombinant 1 completed Not Available [facility] 12/30/2021 23:30:12 zoster recombinant 0 completed Not Available [facility] 12/30/2021 23:30:12 Influenza, high-dose, trivalent, PF 4 completed Mare Taveras null, [employer] 02/08/2024 13:35:26 COVID-19, mRNA, LNP-S, PF, lucero-sucrose, 30 mcg/0.3 mL 4 completed Soo Cervantes, [employer]CRE[employer] MANAGER [address] [place] [address], [address], [employer] 03/08/2024 15:52:31 Influenza, split virus, quadrivalent, preservative 2 completed Not Available [facility] 03/24/2023 09:42:42 COVID-19, mRNA, LNP-S, bivalent, PF, 30 mcg/0.3 mL dose 2 completed Not Available [facility] 03/24/2023 09:42:42 Influenza, high-dose, quadrivalent, PF 0 completed MILLA PLEITEZNEAR null, [employer] 07/20/2022 14:13:55 COVID-19, mRNA, LNP-S, PF, 100 mcg/0.5mL dose or 50 mcg/0.25mL dose 2 completed MILLA MYNEAR null, [employer] 07/20/2022 14:13:55 COVID-19, mRNA, LNP-S, PF, 100 mcg/0.5mL dose or 50 mcg/0.25mL dose 1 completed MILLA MYNEAR null, [employer] 07/20/2022 14:13:55 COVID-19, mRNA, LNP-S, bivalent, PF, 50 mcg/0.5 mL or 25mcg/0.25 mL dose 2 completed MILLA MYNEAR null, [employer] 07/20/2022 14:13:55 Influenza, split virus, quadrivalent, PF 2 completed MILLA MYNEAR null, [employer] 07/20/2022 14:13:55 Influenza, split virus, trivalent, PF 5 completed MILLA ayala [facility] [employer] 02/19/2025 11:48:38 Pneumococcal conjugate PCV20, polysaccharide OHJ114 conjugate, adjuvant, PF 4 completed Not Available [facility] 02/19/2025 11:31:46 Past Encounters Encounter ID Performer Location Encounter Start Date Encounter Closed Date Diagnosis/Indication Diagnosis SNOMED-CT Code Diagnosis ICD10 Code Diagnosis IMO Codes Diagnosis Note [id number] [place] [address] 02/20/2022 10:13:29 02/20/2022 10:55:23 Acute prostatitis 50669368 N41.0 Balanitis 38911099 N48.1 Acute urin daljit tract infection 289180322 N39.0 Complete the antibiotic s, continue the Flomax, avoid caffeinate d beverages, [id number] [place] [address] 04/01/2022 14:11:32 04/01/2022 15:26:43 Dysuria 04177137 R30.0 Right flank pain 5869750 09 R10.9 Push water with lemon, obtain CT stone protocol to r/o renal stone. Restart Flomax, he has a RX for this at pharmacy already. Cough 98472173 R05.9 [id number] Rosalba Smith [place] [address] 0 04/21/2022 11:10:00 04/21/2022 12:19:06 Acute urinary tract infection 428121633 N39.0 Continue flomax and doxazosin, repeat urine culture today to r/o persistent infection. Keep Nephro appt. Foreskin care explained. Balanitis 36482312 N48.1 [id number] Rosalba Smith [address] 0 07/20/2022 14:06:08 07/20/2022 14:52:55 Edema of lower extremity 169537149 R60.0 Left > Right. Low salt diet, Sathish hose, elevate legs. [id number] Rosalba Smith [address] [address] 10/20/2022 10:55:06 10/20/2022 11:48:47 Benign prostatic hyperplasia 817045102 N40.1 Continue doxazosin and Flomax. Chronic ki dney disease stage 3 375578941 N18.30 Continue to maintain adequate hydration, good blood pressure control, and avoid NSAIDs. He is scheduled for an annual follow-up with nephrology . Chronic ob structive pulmonary disease 96087678 J44.9 Add guaifenesi n to aid in expectorat ion, obtain CXR and Chest CT. continue scheduled nebulizers and home oxygen. Mixed hyperlipidemia 267 831186 E78.2 Vitamin D deficiency 347 09372 E55.9 Essential hypertension 38243818 I10 Low-salt diet was emphasized , weight loss was emphasized . Adult heal th examination 416237113 Z00.00 Fall safety was emphasized . Body mass index 25-29 - overweight 923920375 Z68.29 Neoplasm of kidney 26523 0001 D49.519 Left kidney, this is a 6 month follow up scan [id number] Rosalba Smith[address] [address] 11/13/2022 16:24:04 11/13/2022 17:16:04 Acute exacerbation of chronic obstructive pulmonary disease 688598018 J44.1 He is now requiring oxygen 16/11 due to de-sats into the 80s with any ambulation . 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 Chronic ob structive pulmonary disease 68487041 J44.9 Continue nebulizers , inhalers, home oxygen, and Mucinex. [id number] Rosalba Smith [address] [place] [address] 02/10/2023 11:37:45 02/10/2023 12:33:38 Administration of influenza vaccine 75527539 Z23 [id number] [place] [address] 03/10/2023 15:24:22 03/10/2023 17:12:43 Acute exacerbation of chronic obstructive pulmonary disease 224623584 J44.1 Push fluids, continue oxygen at 2 l/m per NC, continue scheduled duo nebs and pulmicort nebs, continue Mucinex. Fever control and rest encouraged . He is to notify me if his sx do not begin to improve by Wednesday. [id number] Rosalba Smith [place] [address] 03/22/2023 12:54:52 03/22/2023 14:04:30 Chronic kidney disease stage 3 501745175 N18.30 Continue to maintain adequate hydration, good blood pressure control, and avoid NSAIDs. He is scheduled for an annual follow-up with nephrology . Active or passive immunization 829720138 Z23 Acute urin daljit tract infection 862630786 N39.0 [id number] [place] [address] 03/24/2023 09:42:01 03/24/2023 09:57:47 Administration of SARS-CoV-2 mRNA vaccine 8854318856 Z23 [id number] [place] [id number] 05/17/2023 14:41:08 05/17/2023 15:48:02 Acute exacerbation of chronic obstructive pulmonary disease 377975718 J44.1 Increase oxygen to 3 l/m per NC. Trial of Breztri. He has failed symbicort, combivent and he does not find Pulmicort and Duonebs as helpful as they used to be. CXR in September 2022 was consistent with emphysema. CT chest was ordered at that time and his insurance denied it. He does finally, but reluctantl y, agree to a Pulmonary consult with PFT. Will start ZMAX and low dose pred 3 days per week for flare prophylaxi s. [id number] [place] [address] 0 07/23/2023 13:49:25 07/23/2023 14:57:42 Chronic obstructive pulmonary disease 34487323 J44.9 Continue nebulizers , inhalers, home oxygen, and Mucinex.Ke Pulmonary appt. Essential hypertension 91087683 I10 Low-salt diet was emphasized , weight loss was emphasized . [id number] Rosalba Smith [place] [address] 0 10/19/2023 12:56:45 10/19/2023 14:06:05 Chronic kidney disease stage 3 244778460 N18.30 Continue to maintain adequate hydration, good blood pressure control, and avoid NSAIDs. He is scheduled for an annual follow-up with nephrology . Large prostate 093130104 N40.0 Mixed hyperlipidemia 267 969119 E78.2 Vitamin D deficiency 347 05502 E55.9 [id number] [place] [address] 0 11/19/2023 09:55:45 11/19/2023 12:38:15 Left side sciatica 4008059150 54747 M54.32 Rest, ice, continue chiro appts. Cautioned for sedation and fall risk, no driving while taking pain medication s. He is to notify me if pain does not improve, and he may then need an MRI. Alex reviewed. [id number] [place] [address] 0 11/29/2023 13:42:34 11/29/2023 14:43:43 Essential hypertension 56088774 I10 Low-salt diet was emphasized , weight loss was emphasized . Left side sciatica 27293 41801 03880 M54.32 Complete Chiro treatments . Continue tylenol with gabapentin q HS. Much improved!! [id number] Yanely Valderrama [employer] [address] [address] 02/08/2024 13:26:45 02/08/2024 13:42:01 Administration of influenza vaccine 66077717 Z23 [id number] Soo Cervantes NP [address] [address] 03/08/2024 14:07:30 03/08/2024 14:26:22 Active or passive immunization 252357962 Z23 [id number] Rosalba Smith [employer] [address] [address] 11/15/2024 10:25:48 11/15/2024 11:41:06 Essential hypertension 38591664 I10 Low-salt diet was emphasized , weight loss was emphasized . Chronic ki dney disease stage 3 336320365 N18.30 Continue to maintain adequate hydration, good blood pressure control, and avoid NSAIDs. He is scheduled for an annual follow-up with nephrology . Large prostate 903670067 N40.0 Continue flomax and recheck PSA. Mixed hyperlipidemia 267 820800 E78.2 Vitamin D deficiency 347 93187 E55.9 Preventive procedure 169 570655 Z00.00 19730156 Fall safety was emphasized . Body mass index 30+ - obesity 004261281 E66.9 41987883 Edema of l ower extremity 863614530 R60.0 Left > Right. Low salt diet, Sathish hose, elevate legs. Acute urin daljit tract infection 428015743 N39.0 [id number] DOMINGA STEINER NP [address] [address] 12/15/2024 09:53:29 12/18/2024 10:27:11 Acute diarrhea 225286651 R19.7 57755 Continue to hydrate, consider water, or oral [...] diarrhea. 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 [id number] Rosalba Smith[address] [address] 01/17/2025 13:38:45 01/17/2025 14:59:17 Padilla hematuria 957181633 R31.0 [id number] UA NEG today. History of malignant neoplasm of prostate 599622380 Z85.46 7004286 Complex renal cyst 27246 1001 N28.1 625112 [id number] Rosalba Smith[address] [address] 02/19/2025 11:29:48 02/19/2025 11:48:17 Influenza vaccination given 5177416028 9109 Z23 12394565 Health Concerns Section Related Observation LastModified by Organization Detai ls LastModified Time None Recorded Concern Status LastModified by Organization Details LastModified Time None Recorded Advance Directives Directive N: Payers Insurance Date Sequence Insurance Name Policy Number Policy Loco Covered Member ID Loco Member ID Guarantor Name 02/19/[address] [facility] (MEDICARE REPLACEMENT/AD VANTAGE - PPO) [id number] Rah W Itzel [id number] Rah Richardne Itzel 02/08/2024 1 [place] (MEDICARE REPLACEMENT REGIONAL PPO) [id number] Rah W Itzel [id number] Rah Sarbjit Itzel 02/08/2024 1 [place] [id number] Rah W Itzel [id number] Rah Sarbjit Itzel 02/19/2025 [place] [employer] [facility] Rah W Itzel [id number] Rahmurtaza Schaffer Itzel Notes Date Note Type Note Provider Name and Address Organization Details Recorded Time text/html ROS as noted in the HPI Patient presenting today with concerns for 5 days of diarrhea, started 4 days ago. No recent antibiotic use, no sick contacts. Does note eating out about 24 hours prior to symptoms. Waited several days before trying anti-diarrheal medication just to slow down. Seems to work a little but isn't curative. Continue to have appetite and is able to hydrate. Has been drinking Gatorade and water to rehydrate. Denies changes in urination, urine is yellow/straw and clear. No weakness, dizziness, shortness of breath. Denies bloody and dark stools. addionally he expresses concern that he did not follow up on colonoscopy as directed. 5 years ago had colonoscopy where 11 polyps were removed, and he was supposed to return in 2 years. Would like to have that referral placed so when this resolves he can follow up. DOMINGA STEINER NP [address] [place] [address], [phone], [facility] [employer], [employer] 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 He expresses frustration with the condition, stating, It's aggravating. Mr. Robbins mentions that he has a referral to see a citrix architect, Dr. Tyson, on March 05. 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 Positive for decreased appetite.Gastrointestina l: Positive for diarrhea, loose stools, gas pain. Negative for blood in stool, vomiting, nausea.Genitourinary: Negative for urinary symptoms. Rosalba Smith, MANAGER OF [employer] [address] [place], [phone], [facility] [employer] 01/01/2025 15:11:51 5 text/html ROS as noted in the [...] is still under the care of a lpn or medical assistant and Dr. Jessica for his COPD management. He takes Konsyl for fiber supplementation, which was prescribed five years ago at his last colonoscopy. Mr. Robbins denies any leg swelling and reports no recent episodes of diverticulitis flare-ups or blood in his stool. Rosalba Smith APRN [address] [place], [phone], [employer], [employer]. 01/09/2025 18:11:03 5 text/html ROS as noted in the [...] Nephrology at . Rosalba Smith APRN [address] [place], [phone], [facility] [employer] 01/17/2025 17:22:26
--- OUTSIDE RECORDS SUMMARY | 2025-02-27 14:06 | XMS_ITS | Clinical Summary ---
Author Organization [facility] Address [address] [place] [address] Care Team Providers Care Lens Dotter Name Role Phone Smith, Rosalba PEDROZA Primary Care Provider [phone] Allergies No known active allergies Medications amLODIPine (NORVASC) 10 MG tablet Take 1 tablet by mouth Daily. Active doxazosin (CARDURA) 4 MG tablet Take 1 tablet by mouth Daily. Active tamsulosin (FLOMAX) 0.4 MG capsule 24 hr capsule Take 1 capsule by mouth Every Evening. Active furosemide (LASIX) 20 MG tablet 1 tablet. Active ipratropium-alb uterol (DUO-NEB) 0.5-2.5 mg/3 ml nebulizer INHALE 1 VIAL VIA NEBULIZER 4 TIMES PER DAY 3 Active guaiFENesin (MUCINEX) 600 MG 12 hr tablet Take 2 tablets by mouth 2 (Two) Times a Day. Active potassium chloride (MICRO-K) 10 MEQ CR capsule Take 1 capsule by mouth 2 (Two) Times a Day. Active albuterol sulfate HFA 108 (90 Base) MCG/ACT inhaler Inhale 2 puffs Every 4 (Four) Hours As Needed for Wheezing. 18 g 3 4 Active albuterol (PROVENTIL) (2.5 MG/3ML) 0.083% nebulizer solution Take 2.5 mg by nebulization 4 (Four) Times a Day As Needed for Wheezing. 4 Active arformoterol (BROVANA) 15 MCG/2ML nebulizer solution Take 2 mL by nebulization 2 (Two) Times a Day. 120 mL 3 4 Active budesonide (Pulmicort) 0.5 MG/2ML nebulizer solution Take 2 mL by nebulization 2 (Two) Times a Day. 240 mL 5 5 Active revefenacin (YUPELRI) 175 MCG/3ML nebulizer solution Take 3 mL by nebulization Daily. 240 mL 3 Active Active Problems Problem Noted Date Diagnosed Date Mucopurulent chronic bronchitis 05/16/2024 Chronic respiratory failure with hypoxia 024 Encounters Date Type Department Care Team Description 01/01/2025 [facility] PULMONARY & CRITICAL CARE MEDICINE [address] [place] [id number] Manas Cardozo, from Last 3 Months Immunizations Immunization Administration Dates Next Due 31-influenza Vac Quardvalent Preservativ 018 Arexvy (RSV, Adults 60+ yrs) 03/22/2023 Fluzone High-Dose 65+YRS 02/08/2024 Fluzone High-Dose 65+yrs 02/10/2023,02/05/2020 Pneumococcal Conjugate 20-Valent (PCV20) 024 Shingrix 01/21/2021,04/23/2020 Social History Tobacco Use Types Packs/Day Years Used Date Smoking Tobacco: Former Cigarettes 1.1 70.7 0 04/26/1963 - 07/10/2016 Passive Smoke Exposure: Past Smokeless Tobacco: Never Tobacco Cessation:Counseling Given: Not Answered Alcohol Use Standard Drinks/Week Comments Never 0 (1 standard drink = 0.6 oz pur e alcohol) Sex and Gender Information Value Date Recorded Sex Assigned at Male 10/30/2024 8:30 AM EDT Legal Sex Male 11:12 AM EDT Gender Identity Not on file Sexual Orientation Straight 10/30/2024 8: 30 AM EDT Last Filed Vital Signs Vital Sign Reading Time Taken Comments Blood Pressure 128/66 11/06/2024 1:09 PM EDT Pulse 72 11/06/2024 1:09 PM EDT Temperature 36.8 C (98.2 F) 05/16/2024 3:56 PM EST Respiratory Rate 16 11/11/2023 10:50 AM EDT Oxygen Saturation 92% 11/06/2024 1:09 PM EDT Inhaled Oxygen Concentration - - Weight 97.1 kg (214 lb) 11/06/2024 1:09 PM EDT Height 175.3 cm (5' 9 ) 11/06/2024 1:09 PM EDT Body Mass Index 31.6 11/06/2024 1:09 PM EDT Plan of Treatment Health Maintenance Due Date Last Done Comments TDAP/TD VACCINES (1 - Tdap) 1959 ANNUAL WELLNESS VISIT 08/05/2023 INFLUENZA VACCINE 11/24/2024 02/08/2024, , 02/10/2023, Additional history exists COVID-19 Vaccine (6 - Modern a risk season) 2024 03/08/2024, 03/24/2023, 01/17/2022, Additional history exists ZOSTER VACCINE Completed 01/21/2021, 04/23/2020 RSV Vaccine - Adults Completed 03/22/2023 Pneumococcal Vaccine 50+ Completed 08/05/2023 Insurance Advance Directives Documents on File Type Date Recorded 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
== END 2025-02-27 23:59 | disposition home or self-care (01) ==
LOC: RAD 13:59
PROVIDERS: PCP Nurse Practitioner Family; Visit Provider Urology
DX: N20.0 Calculus of kidney (principal); R93.422 Abnormal radiologic findings on diagnostic imaging of left kidney; R93.421 Abnormal radiologic findings on diagnostic imaging of right kidney
CPT/HCPCS: 74176

== ENCOUNTER 2025-03-05 12:29 | Day surgery (SDC) | payer MEDICARE, SELFPAY ==
[2025-02-28 08:58] VITALS: BMI 30.7
--- NOTE | 2025-03-02 15:49 | P.HP_ITS ---
History of Present Illness *Admission Date: 03/05/25 *History of present illness: Mr. Robbins is a 84-year-old gentleman who is here for screening/surveillance colonoscopy. He has had 2 prior colonoscopies and his colonoscopy in 2007 (Dr. Price Zelaya) was normal. His last colonoscopy with sc in February 2020 revealed 11 colon polyps ranging from 3 to 19 mm in size (19 mm tubulovillous adenoma x 1 and smaller tubular adenomas x 10) which were removed. The examination is deemed medically necessary for screening/surveillance colonoscopy. The patient has been seen, interviewed and examined prior to the procedure by both myself and the anesthesia provider. [facility] Disclaimer: The information contained in this section may have been updated after the patient was seen, as this information can be updated by other users. Medical History COPD (chronic obstructive pulmonary disease) Skin cancer History of gastroesophageal reflux (GERD) Edema Prostate cancer Surgical History History of appendectomy Family History Other No significant family history Social History Smoking Status: Former smoker tobacco type: cigarettes alcohol intake: never substance use type: denies use current occupational status: retired Travel in the last 8 weeks?: None household members: spouse housing: house current occupational exposures/hazards: No caffeine: Yes Have you lived/traveled outside US in past 30 days?: No Contact w/someone who lives/traveled outside US past 30 days?: No Exposure to someone with infectious disease in past 14 days?: No Do you have a fever (greater than 100.4 F or 38 C)?: No Have you tested positive for COVID-19?: No Exposed to someone with COVID-19 in past 14 days?: No Do you have a sore throat?: No Do you have a cough?: No Do you have any weakness?: No Do you have any diarrhea?: No Are you experiencing any unusual bleeding?: No Do you have any muscle aches/pain?: No Do you have any abdominal pain?: No Are you experiencing loss of taste or smell?: No Other Medical History Have you received the Flu Vaccine for this season: Yes Have you received the Pneumonia Vaccine: Yes Review of Systems Review of Systems Review of systems (narrative): Negative *Cardiovascular Comments: Negative *Gastrointestinal Comments: Negative *Genitourinary Comments: Negative *Musculoskeletal Comments: Negative *Neurologic Comments: Negative Meds Home Medications and Allergies Home Medications ?Medication ?Instructions ?Recorded ?Confirmed ?Type amlodipine 10 mg tablet 10 mg PO DAILY blood pressur e 10/21/17 11/03/21 History doxazosin 4 mg tablet 4 mg PO HS prostate 10/21/17 11/03/21 History sodium,potassium,mag sulfates 17.5 See Rx Instructions PO .COMPLEX 02/19/25 Rx gram-3.13 gram-1.6 gram oral soln #354 mL (Suprep Bowel Prep Kit) arformoterol 15 mcg/2 mL solution 15 mcg inhalation BI D 02/28/25 02/28/25 History for nebulization budesonide 0.25 mg/2 mL suspension 0.5 mg inhalation B ID 02/28/25 02/28/25 History for nebulization revefenacin 175 mcg/3 mL solution 175 mcg inhalation D AILY 02/28/25 02/28/25 History for nebulization (Yupelri) tamsulosin 0.4 mg capsule (Flomax) 0.4 mg PO DAILY 09/1702/28/25 History New Prescriptions to Start Prescriptions: Allergies Allergy/AdvReac Type Severity Reaction Status Date / Time No Known Drug Allergies Allergy N/A Verified 03/05/25 12:58 Exam Data for Last 24 hours I & O for Last 24 hours: Intake & Output 02/27/25 02/28/25 03/01/25 03/02/25 23:59 23:59 23:59 23:59 Weight 208 lb *Routine HEENT Exam Head: Present normocephalic Eye: Present EOMI and PERRL ENT: Present mucous membranes moist *Routine Neck Exam Neck: Present supple *Routine Respiratory Exam Respiratory: Present CTA bilaterally *Routine Cardiovascular Exam Cardiovascular: Present RRR *Routine Abdominal Exam Abdominal: Present soft and normoactive bowel sounds; Absent tenderness *Routine Rectal Exam Rectal:: deferred *Routine Genitalia Exam Genitalia:: deferred *Routine Extremities Exam Extremities: Absent cyanosis, clubbing or edema *Routine Skin Exam Skin: Present warm; Absent rash *Routine Neurological Exam Neurological: Present alert and oriented X3 Assessment and Plan *Assessment and plan (1) Personal history of adenomatous and serrated colon polyps: Status: Acute Category: Medical Code(s): Z86.0101 - Personal history of adenomatous and serrated colon polyps (2) Tubulovillous adenoma of colon: Status: Acute Category: Medical Code(s): D12.6 - Benign neoplasm of colon, unspecified (3) Screening for colon cancer: Status: Acute Category: Medical Code(s): Z12.11 - Encounter for screening for malignant neoplasm of colon Plan A/P: 1. Personal history of adenomatous colon polyps with a prior advanced adenoma (tubulovillous adenoma) is the preprocedural diagnosis. The patient will be anesthetized/sedated using MAC sedation. The patient has been seen and examined. Cardiac and lung assessment prior to the examination is stable. Proceed with planned screening/surveillance colonoscopy.
--- NOTE | 2025-03-05 07:06 | HMH.PROCNOTE ---
[facility] Procedure Note Date: 03/05/25 Time: 14:11 Procedure Note:: Colonoscopy Procedure Report: Colonoscopy with cold snare polypectomy and cold biopsies Endoscopist: Micheal Tyson II, MD Referring physician: RADHA Spears Date of Procedure: March 05, 2025 Equipment: Olympus [id number] adult colonoscope Sedation: MAC sedation Indication: Mr. Robbins is a 84-year-old gentleman who is here for screening/surveillance colonoscopy. The patient has had some recent diarrhea that has improved. He has had 2 prior colonoscopies and his colonoscopy in 2007 (Dr. Price Zelaya) was normal. His last colonoscopy with ms in February 2020 revealed 11 colon polyps ranging from 3 to 19 mm in size (19 mm tubulovillous adenoma x 1 and smaller tubular adenomas x 10) which were removed. The patient reports no abdominal pain, weight loss, rectal bleeding or family history of colon cancer. The examination is deemed medically necessary for screening/surveillance colonoscopy. Procedure: Prior to the procedure, a history and physical exam was performed, and patient's medications and allergies were reviewed. The risks, benefits and alternatives of the sedation and procedure were discussed with the patient. All questions were answered and informed consent was obtained. The patient was brought to the procedure room. Patient identification and proposed procedure were verified by the physician and the nurse. The patient was placed in a left lateral decubitus position and the scope was passed under direct vision. Throughout the procedure, the patient's blood pressure, pulse, and oxygen saturations were monitored continuously. The colonoscopy was accomplished without difficulty. The patient tolerated the procedure well. Findings: On digital rectal examination there was normal rectal tone. There were no external hemorrhoids. The colonoscope was introduced through the anal canal to the rectum and advanced to the cecum. The ileocecal valve and appendiceal orifice were identified. The scope was advanced a short distance into the ileum which appeared grossly normal. The scope was then withdrawn into the colon. There were 5 colon polyps (ascending x 3 (3, 5 and 9 mm), transverse x 1 (4 mm) and rectal x 1 (4 mm)). These were all removed via cold snare polypectomy. The remaining cecum, ascending and transverse colon and mucosa were grossly normal. Cold biopsies were taken from the right colon randomly to rule out microscopic colitis. There were extensively scattered diverticuli throughout the descending and sigmoid colon (LEFT colon). Within the distal rectum, there were telangiectasias/angiodysplasias consistent with mild radiation proctitis. Upon retroflexion within the rectum there were grade 2 internal hemorrhoids. The preparation was excellent throughout with Houghton Preparation Score of 9. The cecal time was 15 minutes. Impression: 1. Colonic polyps x 5 (3, 4, 4, 5 and 9 mm) 2. Extensive left-sided diverticulosis 3. Mild radiation proctitis 4. Grade 2 internal hemorrhoids Plan: I will follow-up the polyp histology. I do not feel that he will require any further preventative/surveillance colonoscopy. I will also follow-up the random biopsies to rule out microscopic colitis. If the biopsies are normal, I would encourage bulking FiberCon 2 tablets every morning.
[2025-03-05 12:59] VITALS: BP 163/95; PULSE 91; RESP 16; TEMP 36.3; O2SAT 94
[2025-03-05] MEDS: LACTATED RINGERS 1000ML 1,000 ML 50 ML IV (13:09)
--- NOTE | 2025-03-05 13:34 | EXP.ANES.CKL ---
[facility] Disclaimer: The information contained in this section may have been updated after the patient was seen, as this information can be updated by other users. Medical History COPD (chronic obstructive pulmonary disease) Skin cancer History of gastroesophageal reflux (GERD) Edema Prostate cancer Surgical History History of appendectomy Family History Other No significant family history Social History Smoking Status: Former smoker tobacco type: cigarettes alcohol intake: never substance use type: denies use current occupational status: retired Travel in the last 8 weeks?: None household members: spouse housing: house current occupational exposures/hazards: No caffeine: Yes Have you lived/traveled outside US in past 30 days?: No Contact w/someone who lives/traveled outside US past 30 days?: No Exposure to someone with infectious disease in past 14 days?: No Do you have a fever (greater than 100.4 F or 38 C)?: No Have you tested positive for COVID-19?: No Exposed to someone with COVID-19 in past 14 days?: No Do you have a sore throat?: No Do you have a cough?: No Do you have any weakness?: No Do you have any diarrhea?: No Are you experiencing any unusual bleeding?: No Do you have any muscle aches/pain?: No Do you have any abdominal pain?: No Are you experiencing loss of taste or smell?: No [facility] Anesthesia Checklist Patient Identification Patient Identification: Arm Band Structural Data Admitted From: Home Planned Operative Procedure/s: Colonoscopy Consent for Planned Operative Procedure(s) Verified: Yes Verified Documents: Surgical Consent and History and Physical NPO Status Verified Time NPO: 06:30 (finished prep) Additional verifications Anesthesia Reactions: No Hx Blood Transfusions: No Blood Transfusion Reaction: No Airway Assessment Mallampati Score:: Class II C-Spine Mobility Assessed: Yes TMJ Mobility Assessed: Yes Dentition: Dentures-good fit Neurological Assessment Level of Consciousness: Awake, Alert and Appropriate Anesthesia Plan Anesthesia Risk discussed: Yes Anesthesia Plan: Verified ASA Class: III Anesthesia Type: MAC
[2025-03-05 14:12] VITALS: BP 96/60; PULSE 67; RESP 18; TEMP 36.3; O2SAT 97
[2025-03-05 14:27] VITALS: BP 98/53; PULSE 60; RESP 18; TEMP 36.3; O2SAT 97
[2025-03-05 14:42] VITALS: BP 123/73; PULSE 64; RESP 18; TEMP 36.3; O2SAT 97
== END 2025-03-05 14:54 | disposition home or self-care (01) ==
PROVIDERS: PCP Nurse Practitioner Family; Visit Provider Internal Medicine Gastroenterology
PROC: 0DJD8ZZ Inspection of Lower Intestinal Tract, Via Natural or Artificial Opening Endoscopic (ICD-10-PCS; CPT 45378; principal; 2025-03-05 14:00)
DX: Z12.11 Encounter for screening for malignant neoplasm of colon (principal); D12.3 Benign neoplasm of transverse colon; D12.2 Benign neoplasm of ascending colon; D12.8 Benign neoplasm of rectum; K57.30 Diverticulosis of large intestine without perforation or abscess without bleeding; K64.1 Second degree hemorrhoids; K62.7 Radiation proctitis; J44.9 Chronic obstructive pulmonary disease, unspecified; Z87.891 Personal history of nicotine dependence; Z85.46 Personal history of malignant neoplasm of prostate; Z86.0101 Personal history of adenomatous and serrated colon polyps
CPT/HCPCS: 45380; 45385; 88305; J2003; J2704; J7120